=== PATIENT | female | born 1995 | race Caucasian/White ===

== ENCOUNTER 2020-10-15 14:56 | Outpatient (CLI) | payer OTHER, SELFPAY ==
[2020-10-15 19:26] LABS: Vitamin D 25 Hydroxy 19.1 ng/mL
[2020-10-15 19:58] LABS: Hepatitis C Virus Antibody Negative (Negative)
[2020-10-18 09:17] LABS: Rapid Plasma Reagin Non-Reactive (NonReactive)
[2020-10-21 02:29] LABS: Hematocrit 35.9 % (35.0-45.0); Hemoglobin 11.5 g/dL (11.7-15.5); MCH 30.8 pg (27.0-33.0); MCV 96.2 FL (80.0-100.0); RDW 14.9 % (11.0-15.0); Red Blood Cell Count 3.73 Mill/uL (3.80-5.10)
== END 2020-10-15 14:57 | disposition home or self-care (01) ==
PROVIDERS: PCP Physician Assistant; Visit Provider Student in an Organized Health Care Education/Training Program
DX: Z34.90 Encounter for supervision of normal pregnancy, unspecified, unspecified trimester (principal); Z3A.00 Weeks of gestation of pregnancy not specified
CPT/HCPCS: 36415; 82306; 83021; 86592; 86787; 86803

== ENCOUNTER 2020-12-30 08:35 | Outpatient (CLI) | payer OTHER, SELFPAY ==
[2020-12-30 10:04] LABS: Basophils Percent Auto 0.3 % (0.2-1.2); Eosinophils Absolute Auto 0.1 K/mm3 (0-0.3); Eosinophils Percent Auto 1.4 % (0-4.4); Hematocrit 35.3 % (37.0-47.0); Hemoglobin 11.9 g/dL (12.0-15.0); Immature Granulocyte Absolute 0.09 K/mm3 (0.00-0.031); Immature Granulocyte Percent A 0.9 % (0-0.5); Lymphocytes Absolute Auto 1.77 K/mm3 (0.9-3.2); Lymphocytes Percent Auto 17.8 % (18.3-44.2); Mean Corpuscular HGB Conc 33.7 g/dl (32-36); Mean Corpuscular Hemoglobin 29.1 pg (26-34); Mean Corpuscular Volume 86.3 fl (80-100); Mean Platelet Volume 9.4 fl (7.4-10.4); Monocytes Absolute Auto 0.4 K/mm3 (0.1-0.6); Monocytes Percent Auto 4.2 % (2.6-8.5); Neutrophils Absolute Auto 7.5 K/mm3 (1.3-6.7); Neutrophils Percent Auto 75.4 % (45.5-73.1); Platelet Count Result 308 k/mm3 (150-375); Red Blood Count 4.09 M/mm3 (4.2-5.4); Red Cell Distribution Width 12.5 % (11.5-14.5)
[2020-12-30 10:16] LABS: Glucose 1 Hour PP 50gm Dose 135 mg/dL
== END 2020-12-30 08:36 | disposition home or self-care (01) ==
PROVIDERS: PCP Physician Assistant; Visit Provider Student in an Organized Health Care Education/Training Program
DX: Z34.90 Encounter for supervision of normal pregnancy, unspecified, unspecified trimester (principal); Z3A.00 Weeks of gestation of pregnancy not specified
CPT/HCPCS: 36415; 82947; 85025

== ENCOUNTER 2021-02-17 10:28 | Outpatient (CLI) | payer OTHER, SELFPAY ==
--- NOTE | 2021-02-17 10:42 | ECG_ITS ---
Measurements Intervals [place] Rate: 55 P: 63 CT: 148 QRS: 18 QRSD: 82 T: 31 QT: 403 QTc: 388 Interpretive Statements SINUS BRADYCARDIA WITH SINUS ARRHYTHMIA BORDERLINE ECG Electronically Signed On 02-17-2021 13:15:49 CDT by Dylan Bryant D.O.
== END 2021-02-17 10:29 | disposition home or self-care (01) ==
PROVIDERS: PCP Physician Assistant; Visit Provider Student in an Organized Health Care Education/Training Program
DX: R00.2 Palpitations (principal); R94.31 Abnormal electrocardiogram [ECG] [EKG]
CPT/HCPCS: 93005

== ENCOUNTER 2021-02-28 07:35 | Inpatient (IN) | payer OTHER, SELFPAY ==
[2021-02-28] VITALS (188 sets, daily range): BP systolic 115–193; BP diastolic 68–148; PULSE 49–174; RESP 14–16; TEMP 36.5–37.4; O2SAT 94–100; BMI 39.8
[2021-02-28 07:09] LABS: Basophils Percent Auto 0.5 % (0.2-1.2); Eosinophils Absolute Auto 0.2 K/mm3 (0-0.3); Eosinophils Percent Auto 2.7 % (0-4.4); Hematocrit 35.8 % (37.0-47.0); Hemoglobin 12.9 g/dL (12.0-15.0); Immature Granulocyte Absolute 0.07 K/mm3 (0.00-0.031); Immature Granulocyte Percent A 0.8 % (0-0.5); Lymphocytes Absolute Auto 2.52 K/mm3 (0.9-3.2); Lymphocytes Percent Auto 29.1 % (18.3-44.2); Mean Corpuscular Hemoglobin 30.1 pg (26-34); Mean Corpuscular Volume 83.4 fl (80-100); Mean Platelet Volume 11.4 fl (7.4-10.4); Monocytes Absolute Auto 0.6 K/mm3 (0.1-0.6); Monocytes Percent Auto 6.5 % (2.6-8.5); Neutrophils Absolute Auto 5.2 K/mm3 (1.3-6.7); Neutrophils Percent Auto 60.4 % (45.5-73.1); Platelet Count Result 181 k/mm3 (150-375); Red Blood Count 4.29 M/mm3 (4.2-5.4); Red Cell Distribution Width 12.9 % (11.5-14.5); White Blood Count 8.7 K/mm3 (4.5-10.0)
[2021-02-28 07:17] LABS: Add Urine Microscopic? YES; Appearance Urine Cloudy (Clear); Bacteria Urine Trace /hpf; Bilirubin Urine Negative (Negative); Blood Urine Negative (Negative); Color Urine Yellow (Yellow); Glucose Urine UA Negative (Negative); Ketones Urine Negative (Negative); Leukocyte Esterase Ur Negative LEU/UL (NEGATIVE); Mucus Urine Rare /lpf; Nitrate Urine Negative (Negative); Protein Urine 3+ mg/dL (Negative); RBC Urine 0-2 /hpf (0-2); Specific Grav Ur 1.016 (1.001-1.035); Squamous Epithelial Cell Urine Few /hpf (Few); Urobilinogen Urine Negative mg/dL (<2.0)
[2021-02-28 07:34] LABS: Amphetamine Screen Urine Negative (Negative); Barbiturate Screen Urine Negative (Negative); Benzodiazepines Screen Urine Negative (Negative); Cannabinoid Screen Urine Positive (Negative); Cocaine Screen Urine Negative (Negative); Methadone Screen Urine Negative (Negative); Opiate Screen Urine Negative (Negative); Phencyclidine Screen Urine Negative (Negative)
[2021-02-28 07:34] LABS: Alanine Aminotransferase 21 U/L (4-35); Albumin Level 2.8 g/dL (3.5-5.1); Alkaline Phosphatase 197 U/L (38-126); Anion Gap 6 mmol/L (8-16); Aspartate Amino Transferase 35 U/L (14-36); Bilirubin,Total 0.2 mg/dL (0.2-1.3); Blood Urea Nitrogen 10 mg/dL (7-17); Calcium 8.4 mg/dL (8.4-10.2); Carbon Dioxide 22 mmol/L (22-30); Chloride 107 mmol/L (98-107); Estimated Glomerular Filt Rate > 60; Glucose 81 mg/dL (65-110); Potassium 3.8 mmol/L (3.4-5.0); Sodium 135 mmol/L (137-145); Uric Acid 7.4 mg/dL (2.5-7.5)
[2021-02-28] MEDS: LABETALOL HCL INJ 100 MG/20 ML VIAL 20 MG IV PUSH (08:18)
[2021-02-28 08:26] LABS: Total Protein Urine Random > 600 mg/dL
[2021-02-28] MEDS: LACTATED RINGERS 1,000 ML 125 ML IV CONT (08:31)
[2021-02-28] MEDS: AMPICILLIN 2 GM/NS 100 ML 2 GM/100 ML BAG IVPB (08:32)
[2021-02-28] MEDS: OXYTOCIN 30 UNITS/NS 500 ML 30 UNITS/500 ML BAG 6 UNITS IV CONT (08:32)
[2021-02-28] MEDS: LABETALOL HCL INJ 100 MG/20 ML VIAL 40 MG IV PUSH (08:40)
--- NOTE | 2021-02-28 08:54 | LDADM ---
This patient, Ifeoma Grubbs, was admitted to Labor/Delivery/Recovery 107 on 02/28/21 at 07:35. Plans for labor, pain management and were discussed with patient. Patient/family oriented to hospital policies and general routines including ID bracelet, bed and alarms, visiting hours, pain management, procedures, bathroom and other care routines, personal items, smoking policy, room service/diet and guest tray routines, security routines, and visiting hours. Patient/Family are encouraged to report perceived risks to care and to ask questions if they do not understand what they are told or what they should do. See OBIX for further documentation.
[2021-02-28] MEDS: LABETALOL HCL INJ 100 MG/20 ML VIAL 80 MG IV PUSH (09:19)
[2021-02-28] MEDS: NIFEdipine 30 MG TAB.ER.24 60 MG PO (09:24)
[2021-02-28] MEDS: MAGNESIUM SULF 4 GM/WATER100ML 4 GM/100 ML BAG IVPB (09:33)
[2021-02-28] MEDS: MAGNESIUM SULF 20GM/WATER500ML 500 ML 50 MG IV CONT ×2 (10:06→23:18)
[2021-02-28 10:18] LABS: Collection Time Urine 24 HOURS; Total Volume 24 Hour Urine 800 ml
[2021-02-28 10:19] LABS: Patient Weight 232 Lbs
[2021-02-28 10:35] LABS: Creatinine Clearance Urine 101.6 ml/min (75-125); Creatinine Urine 197.6 mg/dL
--- NOTE | 2021-02-28 11:18 | PM.IMHP ---
H&P: HPI History of Present Illness Date/Time: 02/28/21 11:18 Patient is a 25 yo LMP 06/01/20 currently 38w gestation with HAWA 03/14/21. Patient is dated by an ultrasound at 7 weeks gestation. Patient presented to L&D with complaints of RUQ tenderness. States she woke up around 1:00 a.m with RUQ tenderness that did not resolve and presented for evaluation. For past several weeks, patient has noticed worsening LE edema and has had protein on U dip in office. BP, however, was WNL. A 24 hr urine collection was ordered and patient reports completing it yesterday, but has not submitted it to the lab. Upon arrival to L&D, patient had severely elevated BP measurements and decision was made to proceed with IOL for preeclampsia with severe features. She denies any headache, chest pain, SOB, N/V, or visual disturbances. Reports occ ctx. Denies any vaginal bleeding or leakage of fluid. Reports good movement. Chief Complaint: Intrauterine at 38w gestation Preeclampsia with severe features GBS positive Review of Systems Review of Systems: All systems reviewed & are unremarkable except as noted in HPI and below Constitutional: Constitutional: Reports as per HPI, Reports no additional constitutional complaints, Denies chills, Denies fever(s), Denies headache(s) and Denies night sweats Eyes: Eyes: Reports as per HPI and Reports no additional eye complaints ENT: Reports system reviewed and no additional complaints, except as documented, Reports as per HPI, Reports Normal hearing present and Denies headache(s) Cardiovascular: Cardiovascular: Reports as per HPI, Reports no additional cardiovascular complaints, Denies chest pain and Denies dyspnea Respiratory: Respiratory: Reports as per HPI, Reports no additional respiratory complaints, Denies cough and Denies dyspnea Gastrointestinal: Gastrointestinal: Reports as per HPI, Reports no additional gastrointestinal complaints, Denies abdominal pain, Denies change in bowel habits, Denies change in stool character, Denies nausea and Denies vomiting Genitourinary: Genitourinary: Reports no additional female genitourinary complaints, Reports as per HPI, Denies abnormal vaginal bleeding, Denies genital lesions, Denies hot flashes, Denies dyspareunia, Denies pelvic pain, Denies sexual dysfunction, Denies urinary incontinence, Denies vaginal discharge, Denies vaginal dryness and Denies vaginal odor Musculoskeletal: Musculoskeletal: Reports no additional musculoskeletal complaints and Reports as per HPI Integumentary/Breasts: Skin/Breast: Reports system reviewed and no additional complaints, except as docu, Reports as per HPI, Denies breast pain and Denies nipple discharge Neurologic: Reports system reviewed and no additional complaints, except as documented, Reports as per HPI, Reports Normal hearing present and Denies headache(s) Psychiatric: Psychiatric: Reports no additional psychiatric complaints, Reports as per HPI, Denies anxiety and Denies depression Endocrine: Endocrine: Reports no additional endocrine complaints and Reports as per HPI Hematologic/Lymphatic: Hematologic/Lymphatic: Reports no additional hematologic/lymphatic complaints and Reports as per HPI Allergic/Immunologic: Allergic/Immunologic: Reports no additional allergic/immunologic complaints and Reports as per HPI PMFSH Past Medical History Medical History Breast cyst Surgical History Surgical History History of removal of skin mole Family History Family History Father Hypertension Mother Hypertension Depression Heart disease Grandparent Diabetes mellitus Heart disease Social History Social History Smoking status: Never smoker Alcohol intake: former Substance use: current Substance use type: marijuana
[2021-02-28 11:28] LABS: Total Protein Urine 24 Hr > 4800 mg/24hr (28-141); Total Protein Urine Random > 600 mg/dL
--- NOTE | 2021-02-28 11:33 | WPDHPUPDATE1 ---
History and Physical Update Update Date/Time: 02/28/21 11:33 History and Physical has been reviewed, including an updated exam of the patient. There are NO changes in the patient's condition. Risks, benefits, and alternatives have been discussed and questions answered. Patient agrees to proceed with procedure.
[2021-02-28] MEDS: AMPICILLIN 1 GM/NS 50 ML 1 GM/50 ML BAG IVPB (12:39)
--- NOTE | 2021-02-28 14:54 | PM.OBPNLAB ---
Pain Control Date/time seen: 02/28/21 14:54 Called by RN who stated that patient experienced SROM and that during her exam, she thought fetus was in breech presentation. Went to bedside. Limited bedside sono performed confirming breech presentation. Situation discussed with patient. Recommendation made to proceed with section for breech presentation. Risks and benefits discussed. Patient implied an understanding and agrees with plan. Pitocin discontinued. Anesthesia notified.
--- NOTE | 2021-02-28 15:31 | WPDANESEFPP ---
Anes - Eval Final PreProcedure Day of Procedure 02/28/21 15:31 Patient weight: obese Heart: regular rate and rhythm Lungs: clear to auscultation and normal air movement Airway: Mallampati scale class II Neurological: alert and oriented Last oral intake: >/= 8 hours ASA classification: III Emergent: no Anesthetic plan: proceed Anesthesia type and monitoring: regional epidural and standard monitoring Other findings: to C/S for breech presentation Results Review: All pre-operative results and documents have been reviewed as part of the pre-operative evaluation. Informed Consent: The patient's anesthetic plan and its attendant risks and benefits were discussed with the patient/family/POA. Questions were solicited and answers provided to the satisfaction of the patient/family/POA.
[2021-02-28] MEDS: KETOROLAC 30 MG/ML VIAL (*BKC) IM (15:40)
--- NOTE | 2021-02-28 16:19 | PM.OBPRVD ---
OB - Delivery Note Procedure Delivery date: 02/28/21 Procedure: Procedures Operation Date: 02/28/21 15:00 <No data on this case meets the specified criteria> events: Pre-Eclampsia, Labor Induction and Meconium Stained Fluid Intrapartal events: Severe Preeclampsia Induction method: per pitocin protocol Delivery monitor: external FHT and external uterine Route of delivery: Specimen: Yes (placenta and cord, cord blood, and cord gases) Quantitative Blood Loss (ml): 220 Anesthesia type: Epidural Disposition: PACU Complications: No immediate complications, however, small approx. 0.3 cm superficial laceration on infant's left ear identified by nursing staff Baby Date of : 02/28/21 Time of : 15:38 Weeks of gestation at delivery: 38 gender: Male Weight (pounds): 6 Weight (ounces): 7 presentation: breech Placenta delivery description: Manual Removal cord vessel description: 3 Vessels, Nuchal Cord (x1) and Clamped/Cut score one minute: 8 score five minutes: 9
--- NOTE | 2021-02-28 16:28 | W.PM.PROC2 ---
Procedure Note - Detailed Date of Procedure 02/28/21 Pre-op Diagnosis Intrauterine at 38 weeks gestation Preeclampsia with severe features Breech presentation identified in labor GBS positive Post-op Diagnosis same Procedure Performed Primary low transverse section via Pfannenstiel Surgeon Chari Montalvo MD Cementer Helper Rosenda Watt Anesthesia epidural Indications Breech presentation Findings Liveborn male in nichol breech presentation, apgars 8/9, weighing 6 lbs. 7 oz.; meconium stained amniotic fluid; normal appearing uterus, ovaries, and fallopian tubes bilaterally Description of Procedure The patient was taken to the operating room, where she was transferred to the operating room table. The patient was placed in dorsal supine position with a leftward tilt. She was prepped and draped in the usual sterile fashion. Epidural anesthesia was tested and found to be adequate. A Pfannenstiel skin incision was made with a scalpel and carried through to underlying layer of fascia with the Bovie. The fascia was incised in the midline and the incision was extended laterally with the use of forceps and Ruiz scissors. The inferior aspect of the fascial incision was grasped with Gilbetro clamps, elevated, and the underlying rectus muscle were dissected off with Ruiz scissors. Attention was then turned to the superior aspect of the fascial incision, which in a similar manner, was grasped with Gilberto clamps, elevated, and the underlying rectus muscles were also dissected off with Ruiz scissors. The rectus muscles were grasped with Jessenia clamps and the peritoneal cavity was entered sharply. This incision was extended superiorly and inferiorly with good visualization of the bladder and care was taken to avoid blood vessels. An Morgan retractor was placed inside of abdominal cavity and rolled to facilitate visualization and space. A bladder blade was inserted. The vesicouterine peritoneum was identified and incised sharply with Metzenbaum scissors. This incision was extended laterally with Metzenbaum scissors and a bladder flap was created digitally. The bladder blade was replaced. A low-transverse uterine incision was made with a scalpel. This incision was extended laterally with bandage scissors. Meconium-stained amniotic fluid was noted. The infant's buttocks were grasped and guided to the level of the uterine incision. The 's buttocks were delivered easily without difficulty with gentle fundal pressure. The infant was visualized passing meconium. Infant was found in nichol breech presentation. The infant was rotated to the right and the right lower extremity was flexed and delivered. The infant was then rotated to the left and the left lower extremity was also flexed and delivered. The infant was wrapped with a sterile blue towel and grasped at the level of the iliac crests and guided through incision to level of scapulae. The infant was rotated to the right and the right arm was flexed and delivered. Similarly, the was rotated to the left and the left arm was also flexed and delivered. A loose nuchal cord was noted. The infant's head was flexed and an effort was made to deliver head through incision, however, was unable to be delivered easily. Decision made to extend incision on left side. A scalpel was used to extend skin incision and transect left rectus muscle approximately 0.5cm to facilitate easier delivery of head. During this process, patient coughed rather forcefully and a small hole was seen through Morgan retractor. The 's head was grasped again, flexed, and delivered through incision atraumatically and without difficulty. Nuchal cord was reduced. The infant was crying spontaneously. Nose and mouth were suctioned with bulb suction. The cord was clamped and cut and the was handed off to awaiting nursing staff. A segment of cord was collected for cord gases. Cord blood was also collected. The placenta was then delivered manual
[2021-02-28] MEDS: miSOPROStol 200 MCG TABLET 800 MCG (18:00)
[2021-02-28] MEDS: ONDANSETRON INJ 4 MG/2 ML VIAL IV PUSH (20:16)
[2021-02-28] MEDS: PROMETHAZINE HCL 25 MG/ML AMPUL IM (23:19)
[2021-03-01] VITALS (9 sets, daily range): BP systolic 127–159; BP diastolic 86–113; PULSE 64–86; RESP 16–18; TEMP 36.4–36.9; O2SAT 97–99
[2021-03-01] MEDS: PROMETHAZINE HCL 25 MG/ML AMPUL IM ×2 (05:00→17:50)
[2021-03-01] MEDS: ACETAMINOPHEN 325 MG TABLET 650 MG PO (05:00)
[2021-03-01] MEDS: KETOROLAC 30 MG/ML VIAL (*BKC) IV PUSH (05:30)
[2021-03-01 05:48] LABS: Basophils Percent Auto 0.2 % (0.2-1.2); Eosinophils Percent Auto 0.1 % (0-4.4); Hematocrit 38.4 % (37.0-47.0); Hemoglobin 13.5 g/dL (12.0-15.0); Immature Granulocyte Absolute 0.08 K/mm3 (0.00-0.031); Immature Granulocyte Percent A 0.7 % (0-0.5); Immature Platelet Fraction Pct 10.2 % (0.9-11.2); Lymphocytes Absolute Auto 1.53 K/mm3 (0.9-3.2); Lymphocytes Percent Auto 13.8 % (18.3-44.2); Mean Corpuscular HGB Conc 35.2 g/dl (32-36); Mean Corpuscular Hemoglobin 30.4 pg (26-34); Mean Corpuscular Volume 86.5 fl (80-100); Mean Platelet Volume 11.1 fl (7.4-10.4); Monocytes Absolute Auto 0.6 K/mm3 (0.1-0.6); Monocytes Percent Auto 5.1 % (2.6-8.5); Neutrophils Absolute Auto 8.9 K/mm3 (1.3-6.7); Neutrophils Percent Auto 80.1 % (45.5-73.1); Platelet Count Result 95 k/mm3 (150-375); Red Blood Count 4.44 M/mm3 (4.2-5.4); Red Cell Distribution Width 12.9 % (11.5-14.5); White Blood Count 11.1 K/mm3 (4.5-10.0)
--- NOTE | 2021-03-01 07:23 | WPDANLDPN2 ---
Anes-Prog Note L&D Date/Time: 03/01/21 07:23 Comfortable throughout: labor and section Neuraxial method: epidural Epidural/Spinal procedure site: clean & non-tender Neuro status: Neuro function grossly intact. Cardiovascular status: normal Respiratory status: normal Airway patency: baseline Mental status: baseline Post-Op hydration status: normal Vital Signs: Last Vital Signs Temp 36.9 C 03/01/21 05:05 Pulse 70 03/01/21 05:05 Resp 16 03/01/21 05:05 BP 159/113 H 03/01/21 05:05 Pulse Ox 100 02/28/21 18:38 Pain score (VAS): 05/16 I/O: Intake & Output 02/28/21 02/28/21 03/01/21 15:59 23:59 07:59 Intake Total 250 1800 1000 Output Total 2840 900 Balance 250 -1040 100 Post-procedural complaints: none Patient feedback: Patient satisfied with anesthetic care.
--- NOTE | 2021-03-01 07:24 | WPDANLDNPN2 ---
Anes-Prog Note L&D-Neuraxial Date/Time: 03/01/21 07:24 Neuraxial medications: epidural PF morphine Opiod-related complaints: none Patient feedback: Patient satisfied with post-operative pain management.
[2021-03-01 07:38] LABS: Alanine Aminotransferase 185 U/L (4-35); Albumin Level 2.6 g/dL (3.5-5.1); Alkaline Phosphatase 182 U/L (38-126); Anion Gap 4 mmol/L (8-16); Aspartate Amino Transferase 495 U/L (14-36); Bilirubin,Total 1.7 mg/dL (0.2-1.3); Blood Urea Nitrogen 8 mg/dL (7-17); Calcium 7.2 mg/dL (8.4-10.2); Carbon Dioxide 26 mmol/L (22-30); Chloride 99 mmol/L (98-107); Estimated CRCL calculation 111 ml/min; Estimated Glomerular Filt Rate > 60; Glucose 96 mg/dL (65-110); Potassium 4.1 mmol/L (3.4-5.0); Sodium 129 mmol/L (137-145)
[2021-03-01] MEDS: NIFEdipine 30 MG TAB.ER.24 60 MG PO (07:41)
--- NOTE | 2021-03-01 08:10 | PC.NURSE ---
Mother called out for assist with feeding, reporting has eagerly fed and is now sleepy and unable to wake. is able to freely thrust tongue past gum ridge and flange both lips. Skin is intact on both nipples, no redness and bruising noted. Reviewed feeding cues, frequencies, duration of feedings, feeding elimination flow sheet, and signs of adequate intake. Demonstrated stimulation techniques to wake infant for feeding. Assisted with infant to breast. Reviewed positioning/alignment in cross cradle, holding breast in ?U? hold and guided asymmetrical latch on. Reviewed rational for each. Infant able to latch correctly within a few attempts. Infant nursed eagerly with steady draws and occasional swallowing noted, some pausing noted. Reviewed signs of a correct latch, effective nursing and suck swallow ratio. Suggested mother stimulate while feeding to increase stimulate, increase intake and to assist with maintaining deep latch. would slip to shallow latch causing tenderness. Demonstrated how to adjust latch more deeply while feeding if needed. Mother reports she can feel the difference in latch with no/less tenderness. Nipple care reviewed of lanolin after feedings, warm compresses as needed. Instructed mother to call out for RN assistance if she is unable to latch infant for feeding or she has discomfort with nursing. Instructed feeding should be initiated three hours from start of last feeding or if feeding cues are noted before. Mother voiced understanding of information shared.
[2021-03-01 08:43] LABS: Magnesium 6.2 mg/dL (1.6-2.3); Uric Acid 7.1 mg/dL (2.5-7.5)
--- NOTE | 2021-03-01 09:03 | PM.OBPNVD ---
OB - PN: Subj Subjective Date/time seen: 03/01/21 09:04 In general, patient doing well. Reported mild upper abdominal pain overnight, however, resolved with pain medication. Patient denies any lower abdominal pain or pain near incision. Also denies any headache, chest pain, shortness of breath. Reported nausea overnight as well as an episode of emesis. Reports feeling better this morning after medication. Limited PO intake. Cuenca catheter in place. No flatus yet. Scant lochia. No ambulation. OB - PN: Obj Data Labs CBC & Chem 7: 03/01/21 05:33 03/01/21 07:01 Labs: Laboratory Results - last 24 hr 02/28/21 02/28/21 03/01/21 08:09 09:51 05:33 WBC 11.1 H RBC 4.44 Hgb 13.5 Hct 38.4 MCV 86.5 MCH 30.4 MCHC 35.2 RDW 12.9 Plt Count 95 L MPV 11.1 H Immature Gran % (Auto) 0.7 H Neut % (Auto) 80.1 H Lymph % (Auto) 13.8 L [place] % (Auto) 5.1 Eos % (Auto) 0.1 Baso % (Auto) 0.2 Lymph # (Auto) 1.53 [place] # (Auto) 0.6 Eos # (Auto) 0.0 Baso # (Auto) 0.0 Abs Immat Gran (auto) 0.08 H Absolute Neuts (auto) 8.9 H Absolute Nucleated RBC 0.0 Nucleated RBC % 0.0 % Immature Plt Fraction 10.2 Sodium Potassium Chloride Carbon Dioxide Anion Gap BUN Creatinine Estim Creat Clear Calc Estimated GFR Glucose Uric Acid Calcium Magnesium Total Bilirubin AST ALT Alkaline Phosphatase Total Protein Albumin U Random Total Protein > 600 Ur 24 Hour Volume 800 Urine Creatinine 197.6 Creatinine Clearance 101.6 Ur Total Protein 24 Hr > 4800 H Blood Type O Positive Antibody Screen Negative 03/01/21 03/01/21 06:57 07:01 WBC RBC Hgb Hct MCV MCH MCHC RDW Plt Count MPV Immature Gran % (Auto) Neut % (Auto) Lymph % (Auto) [place] % (Auto) Eos % (Auto) Baso % (Auto) Lymph # (Auto) [place] # (Auto) Eos # (Auto) Baso # (Auto) Abs Immat Gran (auto) Absolute Neuts (auto) Absolute Nucleated RBC Nucleated RBC % % Immature Plt Fraction Sodium 129 L Potassium 4.1 Chloride 99 Carbon Dioxide 26 Anion Gap 4 L BUN 8 Creatinine 0.80 Estim Creat Clear Calc 111 Estimated GFR > 60 Glucose 96 Uric Acid 7.1 Calcium 7.2 L Magnesium 6.2 H Total Bilirubin 1.7 H AST 495 H ALT 185 H Alkaline Phosphatase 182 H Total Protein 5.0 L Albumin 2.6 L U Random Total Protein Ur 24 Hour Volume Urine Creatinine Creatinine Clearance Ur Total Protein 24 Hr Blood Type Antibody Screen OB - PN A/P Assessment and Plan (1) Delivery by section for breech presentation: Code(s): O32.1XX0 - Maternal care for breech presentation, not applicable or unspecified Status: Acute Assessment and Plan: POD#1 doing well pain medication PRN encourage ambulation and use of IS venodynes while in bed (2) Preeclampsia: Code(s): O14.90 - Unspecified pre-eclampsia, unspecified trimester Status: Acute Assessment and Plan: pt with preeclampsia with severe features continue magnesium sulfate x 24 hrs BP management as needed currently on Procardia XL 60mg QD LFT elevations today and decreased platelets will continue to monitor vitals and symptoms strict I/Os Time Spent With Patient Time: Total time spent is greater than 50% in coordination of care (as documented) at patient's floor/unit and/or counseling patient: Exam Const: General: cooperative, healthy appearing, comfortable and no acute distress Nutritional Appearance: obese Resp: Effort & Inspection: normal respiratory effort Auscultation: clear to auscultation bilaterally Cardio: Rate: regular rate Rhythm: regular rhythm GI: Inspection: non-distended GI Palp: Yes Soft to palpation and No Tenderness to palpation present (GI) Other: fundus firm below umbilicus inc co
[2021-03-01] MEDS: MAGNESIUM SULF 20GM/WATER500ML 500 ML 50 MG IV CONT (09:18)
[2021-03-01] MEDS: DOCUSATE SODIUM 100 MG CAPSULE PO ×2 (09:20→17:41)
[2021-03-01] MEDS: MULTIVIT/MIN/PREN/FOL AC/IRON TABLET 1 TAB PO (09:21)
[2021-03-01 10:52] LABS: Rapid Plasma Reagin Non-Reactive (NonReactive)
[2021-03-01] MEDS: LACTATED RINGERS 1,000 ML 75 ML IV CONT (11:25)
--- NOTE | 2021-03-01 11:30 | PC.NURSE ---
RN requested assist for to breast. sleepy and not nursing effectively. Demonstrated stimulation techniques to wake for feeding. Assisted with infant to breast. Reviewed positioning/alignment in cross cradle, holding breast in ?U? hold and guided asymmetrical latch on. Reviewed rational for each. Infant able to latch correctly within a few attempts. nursed sleepily with eagerly bursts and occasional swallowing noted, long pausing noted. stimulated to wake. responded with increased nursing into a steady rhythmic pattern. Reviewed signs of a correct latch, effective nursing and suck swallow ratio. Suggested mother stimulate while feeding to increase stimulate, increase intake and to assist with maintaining deep latch. Infant would slip to shallow latch causing tenderness. was able to maintain latch. Nipple care reviewed of lanolin after feedings, warm compresses as needed. Instructed mother to call out for RN assistance if she is unable to latch infant for feeding or she has discomfort with nursing. Instructed feeding should be initiated three hours from start of last feeding or if feeding cues are noted before. Mother voiced understanding of information shared.
[2021-03-01] MEDS: IBUPROFEN 600 MG TABLET PO ×2 (12:37→20:28)
[2021-03-01] MEDS: HYDROcodone/acetaminophen (*CRX) 5-325 MG TABLET 1 TAB PO ×4 (12:38→23:18)
[2021-03-01] MEDS: SIMETHICONE 80 MG TAB.CHEW PO ×2 (12:39→17:41)
--- NOTE | 2021-03-01 19:05 | PC.NURSE ---
183 Magnesium sulfate discontinued at 1730. IV mainline remains infusing. Pt has denied headache, blurry vision or visual disturbances, denies any epigastric pain, DTR's equal and +2 and easily elicited at this time. no clonus noted. Occasionally complains of slight nausea, medicated appropriately, no bouts of emesis today.
[2021-03-02] VITALS (7 sets, daily range): BP systolic 125–148; BP diastolic 84–98; PULSE 65–81; RESP 16–18; TEMP 36.4–36.9; O2SAT 98–99
[2021-03-02] MEDS: HYDROcodone/acetaminophen (*CRX) 5-325 MG TABLET 1 TAB PO ×5 (04:15→22:50)
[2021-03-02] MEDS: IBUPROFEN 600 MG TABLET PO ×4 (04:15→22:53)
[2021-03-02 06:10] LABS: Basophils Percent Auto 0.3 % (0.2-1.2); Eosinophils Absolute Auto 0.3 K/mm3 (0-0.3); Hematocrit 33.8 % (37.0-47.0); Immature Granulocyte Absolute 0.09 K/mm3 (0.00-0.031); Immature Granulocyte Percent A 0.8 % (0-0.5); Immature Platelet Fraction Pct 11.2 % (0.9-11.2); Lymphocytes Absolute Auto 1.95 K/mm3 (0.9-3.2); Mean Corpuscular HGB Conc 35.5 g/dl (32-36); Mean Corpuscular Hemoglobin 30.5 pg (26-34); Mean Platelet Volume 11.5 fl (7.4-10.4); Monocytes Absolute Auto 0.5 K/mm3 (0.1-0.6); Monocytes Percent Auto 4.2 % (2.6-8.5); Neutrophils Percent Auto 73.7 % (45.5-73.1); Platelet Count Result 60 k/mm3 (150-375); Red Blood Count 3.93 M/mm3 (4.2-5.4); Red Cell Distribution Width 13.3 % (11.5-14.5); White Blood Count 10.9 K/mm3 (4.5-10.0)
[2021-03-02 06:17] LABS: Alanine Aminotransferase 110 U/L (4-35); Albumin Level 2.5 g/dL (3.5-5.1); Alkaline Phosphatase 162 U/L (38-126); Anion Gap 2 mmol/L (8-16); Aspartate Amino Transferase 153 U/L (14-36); Bilirubin,Total 1.2 mg/dL (0.2-1.3); Blood Urea Nitrogen 9 mg/dL (7-17); Carbon Dioxide 29 mmol/L (22-30); Chloride 101 mmol/L (98-107); Estimated CRCL calculation 125 ml/min; Estimated Glomerular Filt Rate > 60; Glucose 72 mg/dL (65-110); Lactate Dehydrogenase 1806 U/L (313-618); Potassium 3.8 mmol/L (3.4-5.0); Sodium 132 mmol/L (137-145); Uric Acid 5.9 mg/dL (2.5-7.5)
[2021-03-02] MEDS: SIMETHICONE 80 MG TAB.CHEW PO ×3 (09:17→17:27)
[2021-03-02] MEDS: MULTIVIT/MIN/PREN/FOL AC/IRON TABLET 1 TAB PO (09:17)
[2021-03-02] MEDS: DOCUSATE SODIUM 100 MG CAPSULE PO ×2 (09:18→17:27)
[2021-03-02] MEDS: NIFEdipine 30 MG TAB.ER.24 60 MG PO (09:19)
--- NOTE | 2021-03-02 09:22 | PM.OBPNVD ---
OB - PN: Subj Subjective Date/time seen: 03/02/21 09:22 Patient doing well. Denies significant pain. Pain well controlled medication. Patient denies any headache, chest pain, shortness of breath, nausea, or vomiting. Tolerating p.o. diet. Ambulating without difficulty. Voiding well. Passing flatus. Scant lochia. OB - PN: Obj Data Labs CBC & Chem 7: 03/02/21 05:51 03/02/21 05:51 Labs: Laboratory Results - last 24 hr 02/28/21 03/02/21 03/02/21 08:09 05:51 05:51 WBC 10.9 H RBC 3.93 L Hgb 12.0 Hct 33.8 L MCV 86.0 MCH 30.5 MCHC 35.5 RDW 13.3 Plt Count 60 L MPV 11.5 H Immature Gran % (Auto) 0.8 H Neut % (Auto) 73.7 H Lymph % (Auto) 18.0 L [place] % (Auto) 4.2 Eos % (Auto) 3.0 Baso % (Auto) 0.3 Lymph # (Auto) 1.95 [place] # (Auto) 0.5 Eos # (Auto) 0.3 Baso # (Auto) 0.0 Abs Immat Gran (auto) 0.09 H Absolute Neuts (auto) 8.0 H Absolute Nucleated RBC 0.0 Nucleated RBC % 0.0 % Immature Plt Fraction 11.2 Sodium 132 L Potassium 3.8 Chloride 101 Carbon Dioxide 29 Anion Gap 2 L BUN 9 Creatinine 0.70 Estim Creat Clear Calc 125 Estimated GFR > 60 Glucose 72 Uric Acid 5.9 Calcium 7.0 L Total Bilirubin 1.2 AST 153 H ALT 110 H Alkaline Phosphatase 162 H Lactate Dehydrogenase 1806 H Total Protein 5.0 L Albumin 2.5 L RPR Non-reactive OB - PN A/P Assessment and Plan (1) Delivery by section for breech presentation: Code(s): O32.1XX0 - Maternal care for breech presentation, not applicable or unspecified Status: Acute Assessment and Plan: POD#2 doing well continue routine postoperative care encourage ambulation and use of IS (2) Hemolysis, elevated liver enzymes, and low platelet (HELLP) syndrome: Code(s): O14.20 - HELLP syndrome (HELLP), unspecified trimester Status: Acute Assessment and Plan: in general, doing well VSS s/p magnesium sulfate x 24 hrs postoperatively continue Procardia XL 60mg QD LFTs trending down plt count 60 will repeat labs in AM Time Spent With Patient Time: Total time spent is greater than 50% in coordination of care (as documented) at patient's floor/unit and/or counseling patient: Exam Const: General: cooperative, healthy appearing, comfortable and no acute distress Resp: Effort & Inspection: normal respiratory effort Auscultation: clear to auscultation bilaterally Cardio: Rate: regular rate Rhythm: regular rhythm GI: Inspection: non-distended and obesity GI Palp: Yes Soft to palpation and No Tenderness to palpation present (GI) Other: inc c/d/i Extrem: Right lower extremity: edema Details: 2+ Left lower extremity: edema Details: 2+ Other: no calf tenderness
--- NOTE | 2021-03-02 12:35 | PC.NURSE ---
Consult with pt., mother states she has bottle fed last few feedings due to ICP suggestion to supplement due to weight loss. Suggested mother put to breast first then supplement for stimulation of milk supply. Mother would like to initiate pumping with her Spectra pump. Instructions given on breast pump care and usage, pumping schedule, nipple care, and collection and storage of breast milk. Encouraged [id number], breast massage and manual expression to stimulate supply. Assessed patient for correct flange size, placement and draw. Patient verbalizes and demonstrates understanding of instructions. Discussed colostrum vs milk supply and mother may not see more than a few drops the first few days, milk should transition in by day 3 and she may see more volume pumped per session.
[2021-03-03] VITALS: BP 134/93
[2021-03-03] MEDS: HYDROcodone/acetaminophen (*CRX) 5-325 MG TABLET 1 TAB PO ×2 (04:58→09:08)
[2021-03-03] MEDS: IBUPROFEN 600 MG TABLET PO (04:59)
[2021-03-03 05:12] VITALS: BP 138/92
[2021-03-03 05:24] LABS: Basophils Absolute Auto 0.1 K/mm3 (0.0-0.1); Basophils Percent Auto 0.4 % (0.2-1.2); Eosinophils Absolute Auto 0.4 K/mm3 (0-0.3); Eosinophils Percent Auto 3.1 % (0-4.4); Hematocrit 35.7 % (37.0-47.0); Hemoglobin 12.5 g/dL (12.0-15.0); Immature Granulocyte Absolute 0.14 K/mm3 (0.00-0.031); Immature Granulocyte Percent A 1.1 % (0-0.5); Lymphocytes Absolute Auto 3.38 K/mm3 (0.9-3.2); Lymphocytes Percent Auto 26.4 % (18.3-44.2); Mean Corpuscular Hemoglobin 29.6 pg (26-34); Mean Corpuscular Volume 84.4 fl (80-100); Mean Platelet Volume 12.2 fl (7.4-10.4); Monocytes Absolute Auto 0.6 K/mm3 (0.1-0.6); Monocytes Percent Auto 4.4 % (2.6-8.5); Neutrophils Absolute Auto 8.3 K/mm3 (1.3-6.7); Neutrophils Percent Auto 64.6 % (45.5-73.1); Platelet Count Result 81 k/mm3 (150-375); Red Blood Count 4.23 M/mm3 (4.2-5.4); Red Cell Distribution Width 13.2 % (11.5-14.5); White Blood Count 12.8 K/mm3 (4.5-10.0)
[2021-03-03 05:45] LABS: Alanine Aminotransferase 72 U/L (4-35); Albumin Level 2.8 g/dL (3.5-5.1); Alkaline Phosphatase 157 U/L (38-126); Anion Gap 4 mmol/L (8-16); Aspartate Amino Transferase 67 U/L (14-36); Bilirubin,Total 0.8 mg/dL (0.2-1.3); Blood Urea Nitrogen 6 mg/dL (7-17); Calcium 8.6 mg/dL (8.4-10.2); Carbon Dioxide 30 mmol/L (22-30); Chloride 101 mmol/L (98-107); Estimated CRCL calculation 144 ml/min; Estimated Glomerular Filt Rate > 60; Glucose 70 mg/dL (65-110); Lactate Dehydrogenase 1001 U/L (313-618); Potassium 3.8 mmol/L (3.4-5.0); Sodium 135 mmol/L (137-145); Uric Acid 4.9 mg/dL (2.5-7.5)
--- NOTE | 2021-03-03 08:50 | PC.NURSE ---
Mother called out for assist with feeding, reporting she continues to bottle feed for most feedings and plan to put to breast next feeding. Assisted with to breast. Reviewed positioning/alignment in cross cradle, holding breast in ?U? hold and guided asymmetrical latch on. Reviewed rational for each. able to latch correctly within a few attempts. Infant nursed eagerly with steady draws and occasional/frequent swallowing noted, some pausing noted. Reviewed signs of a correct latch, effective nursing and suck swallow ratio. Suggested mother stimulate while feeding to increase stimulate, increase intake and to assist with maintaining deep latch. . Infant would slip to shallow latch causing tenderness. Demonstrated how to adjust latch more deeply while feeding if needed. Mother reports she can feel the difference in latch with no tenderness. Nipple care reviewed of lanolin after feedings, warm compresses as needed. Mother is planning discharge later this day. Mother is able to independently latch with appropriate positioning/alignment. She denies any nipple discomfort, is feeding as required and waking infant to feed if needed. has had few effective feedings followed with supplementation in the past 24 hours, and is currently meeting outcomes for output, jaundice and feeding frequencies. Infant continues to require supplementation for weight loss. Mother continues to pump without difficulties or discomfort after all feedings due to weight loss/supplementation. Mother states she feels confident to continue current feeding plan at home. Mother has her own double electric pump for home use. Discussed increasing supplementation as requires to satisfactions, advised to supplement 30 mls EBM/formula at this time. Reviewed paced feeding and suggested to stop when infant is satisfied, as long as is having required output. With increased supplementation infant may not want to feed for 4 hours. Mother will continue to pump on infant feeding schedule and will increase session to 20 minutes if pumping every 4 hours. Reviewed once mother?s milk is established and infant is effectively feeding, may have increased intake with nursing. If infant is effective feeding with long draws and frequent swallowing noted, may be ready to decrease/discontinue supplementation. Advised not to discontinue supplement until ICP, Follow-Up RN or LC has a pre/post weighted evaluation of infant feeding. Discussed nipple shield weaning techniques Reviewed transition to breast milk, signs of adequate intake, and engorgement/relief. Instructed to call ICP if intake/output less than required. Reviewed regular medications mother is taking. Information provided per Katie. Reviewed community resources on the [facility] website and in the Mom/Baby guide. Information on outpatient services provided. Mother has no further questions at this time.
[2021-03-03 09:00] VITALS: BP 127/94; PULSE 78; RESP 18; TEMP 37.1
[2021-03-03] MEDS: DOCUSATE SODIUM 100 MG CAPSULE PO (09:08)
[2021-03-03] MEDS: MULTIVIT/MIN/PREN/FOL AC/IRON TABLET 1 TAB PO (09:08)
[2021-03-03] MEDS: NIFEdipine 30 MG TAB.ER.24 60 MG PO (09:09)
--- NOTE | 2021-03-03 10:04 | PCCCNOTE ---
Care Coordination Consult: Met with pt. today who reports this is her first child. FOB name is Michael. Pt. lives at home with Michael. Reports family support if needed. Pt. reports she has all necessary supplies for baby at home including a crib, car seat, clothing, diapers, and bottles. resources provided. Pt. reports she recreationally used marijuana during to help with nausea. Pt. denies that she will continue to use marijuana at discharge. Denies a reliance on marijuana and denies any other substance abuse. Plans to discharge today. Denies any further needs.
--- NOTE | 2021-03-03 11:02 | P.PNOB_ITS ---
OB - PN: Subj Subjective Date/time seen: 03/03/21 11:02 Patient doing well. Denies significant pain. Pain well controlled medication. Patient denies any headache, chest pain, shortness of breath, nausea, or vomiting. Tolerating p.o. diet. Ambulating without difficulty. Voiding well. Passing flatus. Scant lochia. OB - PN: Obj Data Labs CBC & Chem 7: 03/03/21 05:05 03/03/21 05:05 Labs: Laboratory Results - last 24 hr 03/03/21 03/03/21 05:05 05:05 WBC 12.8 H RBC 4.23 Hgb 12.5 Hct 35.7 L MCV 84.4 MCH 29.6 MCHC 35.0 RDW 13.2 Plt Count 81 L MPV 12.2 H Immature Gran % (Auto) 1.1 H Neut % (Auto) 64.6 Lymph % (Auto) 26.4 [place] % (Auto) 4.4 Eos % (Auto) 3.1 Baso % (Auto) 0.4 Lymph # (Auto) 3.38 H [place] # (Auto) 0.6 Eos # (Auto) 0.4 H Baso # (Auto) 0.1 Abs Immat Gran (auto) 0.14 H Absolute Neuts (auto) 8.3 H Absolute Nucleated RBC 0.0 Nucleated RBC % 0.0 Sodium 135 L Potassium 3.8 Chloride 101 Carbon Dioxide 30 Anion Gap 4 L BUN 6 L Creatinine 0.60 L Estim Creat Clear Calc 144 Estimated GFR > 60 Glucose 70 Uric Acid 4.9 Calcium 8.6 Total Bilirubin 0.8 AST 67 H ALT 72 H Alkaline Phosphatase 157 H Lactate Dehydrogenase 1001 H Total Protein 6.0 L Albumin 2.8 L OB - PN A/P Assessment and Plan (1) Delivery by section for breech presentation: Code(s): O32.1XX0 - Maternal care for breech presentation, not applicable or unspecified Status: Acute Assessment and Plan: POD#3 doing well continue routine postoperative care encourage ambulation and use of IS plan is to dc home today in stable condition emergency precautions reviewed (2) Hemolysis, elevated liver enzymes, and low platelet (HELLP) syndrome: Code(s): O14.20 - HELLP syndrome (HELLP), unspecified trimester Status: Acute Assessment and Plan: doing well asymptomatic labs improving, LFTs trending down, plt count trending up BP reasonably controlled with Procardia XL 60mg QD will continue Procardia upon discharge will repeat labs when patient returns for follow up visit Time Spent With Patient Time: Total time spent is greater than 50% in coordination of care (as documented) at patient's floor/unit and/or counseling patient: Exam Const: General: cooperative, healthy appearing, comfortable and no acute distress Nutritional Appearance: obese Resp: Auscultation: clear to auscultation bilaterally Cardio: Rate: regular rate Rhythm: regular rhythm GI: Inspection: non-distended and obesity GI Palp: Yes Soft to palpation and No Tenderness to palpation present (GI) Other: fundus firm below umbi licus inc c/d/i Extrem: Right lower extremity: edema Details: 1+ Left lower extremity: edema Details: 1+ Other: no calf tenderness
--- NOTE | 2021-03-03 11:12 | PM.OBDSVD ---
DS: Admitting Diagnosis Discharge Date 03/03/21 Admitting Diagnosis Preeclampsia with severe features OB - DS: Summary OB Procedures : PIH Mgmt OB Procedures Intrapartum: OB Procedures: : None Peripartum Data Procedures: Procedures Operation Date: 02/28/21 15:00 Actual Procedure Side Surgeon p Section Chari Montalvo MD Time Spent with Patient Time attestation: Total time spent providing and/or coordinating discharge services: DS: Data Data Completed and Pending Pending studies at discharge: Pending at discharge 02/28/21 15:39 Surgical [PTH] Routine Labs on day of discharge: Labs from last 24 hours 03/03/21 03/03/21 05:05 05:05 WBC 12.8 H RBC 4.23 Hgb 12.5 Hct 35.7 L MCV 84.4 MCH 29.6 MCHC 35.0 RDW 13.2 Plt Count 81 L MPV 12.2 H Immature Gran % (Auto) 1.1 H Neut % (Auto) 64.6 Lymph % (Auto) 26.4 [place] % (Auto) 4.4 Eos % (Auto) 3.1 Baso % (Auto) 0.4 Lymph # (Auto) 3.[address] [place] # (Auto) 0.6 Eos # (Auto) 0.4 H Baso # (Auto) 0.1 Abs Immat Gran (auto) 0.14 H Absolute Neuts (auto) 8.3 H Absolute Nucleated RBC 0.0 Nucleated RBC % 0.0 Sodium 135 L Potassium 3.8 Chloride 101 Carbon Dioxide 30 Anion Gap 4 L BUN 6 L Creatinine 0.60 L Estim Creat Clear Calc 144 Estimated GFR > 60 Glucose 70 Uric Acid 4.9 Calcium 8.6 Total Bilirubin 0.8 AST 67 H ALT 72 H Alkaline Phosphatase 157 H Lactate Dehydrogenase 1001 H Total Protein 6.0 L Albumin 2.8 L Discharge Plan Discharge Attending physician on discharge: Chari Montalvo Discharging Clinician: Chari Montalvo Anticipated Discharge Date/Time: 03/03/21 11:13 Patient Disposition: Home, Self-Care Activity: as tolerated and pelvic rest Diet: regular Discharge Instructions: Call office ([phone]) to schedule the following appointments: 1. Postoperative/wound check in 1 week. 2. visit in 4-6 weeks. You may take Ibuprofen 600mg every 6 hours as needed for pain. I have sent a prescription for a stronger pain medication, Mcclusky, to your pharmacy. You may take this as prescribed for breakthrough pain (pain that is not controlled with Ibuprofen). No driving for at least two weeks. You also may not drive while taking narcotics. Pain medication may make you constipated. It may be helpful to take an dzwo-wcy-flhrowi stool softener, such as Colace and/or Senokot, along with the pain medication to help lessen constipation. Your blood pressure was high during your hospitalization and you were started on blood pressure medication. I have sent this medication, Procardia XL, to your pharmacy for you to take as directed. Please take your blood pressure at home daily, record in a log, and bring log to your follow up visit. If the top number (SBP) is >160 or the bottom number (DBP) is >110, you need to call the office or go to the emergency department. Call office or go to ED for pain not controlled with medication, headache, visual changes, chest pain, shortness of breath, fever, chills, persistent nausea or vomiting, severe abdominal pain, heavy vaginal bleeding >2 pads/hour, foul vaginal discharge or odor, any redness near incision, severe pain, pus or drainage from incision site, or problems with your breasts. Patient Instructions: Antibiotic Form Stand Alone Forms: General Discharge Information Follow-up/Referrals: Chari Montalvo MD [Physician] - Discharge Medications: New hydrocodone-acetaminophen 5-325 mg Tablet 1 - 2 tablet PO Q4-6H PRN (Reason: pain) Qty: 30 RF: 0 nifedipine 60 mg tablet extended release 24hr 60 mg PO DAILY Qty: 30 RF: 0 Continued One Daily 28 mg iron- 800 mcg combo pack 1 pkg PO DAILY RF: 0 omeprazole 40 mg capsule,delayed release(DR/EC) 40 mg PO DAILY RF: 0 ondansetron HCl 4 mg tablet See Rx Instructions .ROUTE .COMPLEX Qty: 3
[2021-03-05 11:52] VITALS: BP 126/82; PULSE 106; RESP 20; TEMP 37; O2SAT 100
== END 2021-03-03 13:19 | disposition home or self-care (01) | DRG 788 ==
LOC: ANHOBOP 07:37 → ANHLDR 07:37 → ANHOB2 19:55
PROVIDERS: Obstetrics & Gynecology; Admitting Provider Student in an Organized Health Care Education/Training Program; PCP Physician Assistant; Visit Provider Student in an Organized Health Care Education/Training Program
PROC: 10D00Z1 Extraction of Products of Conception, Low, Open Approach (ICD-10-PCS; CPT 59514; principal; 2021-02-28 15:00)
DX: O14.14 Severe pre-eclampsia complicating childbirth (principal); Z37.0 Single live birth; Z3A.38 38 weeks gestation of pregnancy; O32.1XX0 Maternal care for breech presentation, not applicable or unspecified; O99.824 Streptococcus B carrier state complicating childbirth; O77.0 Labor and delivery complicated by meconium in amniotic fluid; O14.25 HELLP syndrome, complicating the puerperium
CPT/HCPCS: 36415; 80053; 80307; 81001; 81050; 82570; 82575; 83615; 83735; 84156; 84550; 85025; 85055; 86592; 86850; 86900; 86901; 87086; 88307; A9270; J0290; J1885; J2274; J2405; J2550; J2590; J2795; J3475; J7120

== ENCOUNTER 2021-03-05 11:13 | Outpatient (CLI) | payer BC, OTHER, SELFPAY ==
[2021-03-05 11:46] LABS: Hematocrit 35.5 % (37.0-47.0); Hemoglobin 12.4 g/dL (12.0-15.0); Mean Corpuscular HGB Conc 34.9 g/dl (32-36); Mean Corpuscular Hemoglobin 30.1 pg (26-34); Mean Corpuscular Volume 86.2 fl (80-100); Mean Platelet Volume 10.9 fl (7.4-10.4); Platelet Count Result 213 k/mm3 (150-375); Red Blood Count 4.12 M/mm3 (4.2-5.4); Red Cell Distribution Width 13.3 % (11.5-14.5); White Blood Count 10.8 K/mm3 (4.5-10.0)
[2021-03-05 12:02] LABS: Alanine Aminotransferase 42 U/L (4-35); Albumin Level 3.5 g/dL (3.5-5.1); Alkaline Phosphatase 148 U/L (38-126); Anion Gap 6 mmol/L (8-16); Aspartate Amino Transferase 37 U/L (14-36); Bilirubin,Total 0.6 mg/dL (0.2-1.3); Blood Urea Nitrogen 12 mg/dL (7-17); Calcium 9.2 mg/dL (8.4-10.2); Carbon Dioxide 26 mmol/L (22-30); Chloride 104 mmol/L (98-107); Estimated Glomerular Filt Rate > 60; Glucose 93 mg/dL (65-110); Potassium 4.3 mmol/L (3.4-5.0); Sodium 136 mmol/L (137-145)
== END 2021-03-05 11:14 | disposition home or self-care (01) ==
LOC: ANHOBOP 11:19
PROVIDERS: PCP Physician Assistant; Visit Provider Student in an Organized Health Care Education/Training Program
DX: O14.90 Unspecified pre-eclampsia, unspecified trimester (principal); Z3A.00 Weeks of gestation of pregnancy not specified
CPT/HCPCS: 36415; 80053; 85027

== ENCOUNTER 2022-06-19 08:07 | Emergency (ER) | payer BC, SELFPAY ==
[2022-06-19 08:33] VITALS: BP 110/73; PULSE 81; RESP 18; TEMP 36.6; O2SAT 99
--- NOTE | 2022-06-19 08:47 | ED.EAR ---
HPI - Ear Problem General Chief complaint: Ear Stated complaint: rt ear pain Time Seen by Provider: 06/19/22 08:24 Source: patient Mode of arrival: ambulatory Limitations: no limitations History of Present Illness HPI Narrative: 26-year-old female presents to [facility] with complaints of pain to her right ear since this morning. Patient reports that she has had intermittent bilateral jaw pain as she needs to get her wisdom teeth removed. Patient has not tried taking any icng-uaj-wykzcmr medications for her symptoms. Patient denies sore throat, cough, congestion, runny nose, nausea, vomiting, diarrhea, shortness of breath, wheezing or ear drainage. MD Complaint: ear pain Location: right ear Duration: constant Severity: mild Relieving factors: nothing Exacerbating factors: nothing Discharge from ear: Reports no Treatment prior to arrival: none Related Data Home Medications Medication Instructions Recorded Confirmed omeprazole 40 mg capsule,delayed 40 mg PO DAILY 12/17/20 06/19/22 release etonogestrel 68 mg subdermal 1 implant subdermal ONCE 06/21/21 06/19/22 implant (Nexplanon) fluoxetine 20 mg capsule 20 mg DIRECTED 06/19/22 06/19/22 Allergies Allergy/AdvReac Type Severity Reaction Status Date / Time No Known Allergies Allergy Verified 06/21/21 12:23 Review of Systems Constitutional: Constitutional: Denies fatigue, Denies fever(s) and Denies weakness ENT: Denies vertigo, Denies dizziness, Denies epistaxis, Denies nasal congestion and Denies sore throat Comments: Right ear pain Cardiovascular: Cardiovascular: Denies chest pain Respiratory: Respiratory: Denies cough, Denies dyspnea and Denies wheezing Gastrointestinal: Gastrointestinal: Denies diarrhea, Denies nausea and Denies vomiting Integumentary/Breasts: Skin/Breast: Denies rash Neurologic: Denies vertigo and Denies dizziness PMFSH Past Medical History Medical History Breast cyst Delivery by section for breech presentation Encounter for surveillance of implantable subdermal contraceptive GBS (group B streptococcus) infection Heart palpitations Preeclampsia Surgical History Surgical History History of removal of skin mole Family History Family History Father Hypertension Mother Hypertension Depression Heart disease Grandparent Diabetes mellitus Heart disease Social History Social History Smoking status: Never smoker Alcohol intake: former Substance use: current Substance use type: marijuana Last use: 2 days ago Occupation/Education: student Gender identity (if verbalized by the patient): Female Spiritual care concerns: No Agree to blood products: Yes Comments At time of signature, I agree with nursing past medical, surgical, social and family history. There is no relevant family history pertinent to the presenting complaint. Exam Const: General: healthy appearing and no acute distress Nutritional Appearance: well nourished Orientation/consciousness: patient oriented x3 Limitations: no limitations HENMT: Head: normal to inspection Ears: external ears normal, EAC's normal and TM abnormal dull on the right, wth effusion serous on the right and erythematous on the right Face/Nose/Sinus: Normal external nose present Face and sinus: normal facial exam Mouth: Yes Normal oral and palatal mucosa present Teeth and gingiva: dentition normal Throat: posterior oropharynx normal and uvula midline Eyes: Conjunctivae: conjunctivae normal Neck: Neck: normal visual inspection Resp: Effort & Inspection: normal respiratory effort and not labored Auscultation: clear to auscultation bilaterally, no crackles, no rales, no rhonchi and no wheezes Cardio: Rate: regular rate Rhythm:
== END 2022-06-19 08:55 | disposition home or self-care (01) ==
PROVIDERS: Emergency Provider Nurse Practitioner Family; PCP Physician Assistant
DX: H66.91 Otitis media, unspecified, right ear (principal); F12.90 Cannabis use, unspecified, uncomplicated
CPT/HCPCS: 99213; G0463

== ENCOUNTER 2023-06-12 12:53 | Outpatient (CLI) | payer BC, SELFPAY | END 2023-06-12 12:54 | disposition home or self-care (01) | LOC: ANHLAB 12:55 | PROVIDERS: PCP Physician Assistant; Visit Provider Obstetrics & Gynecology | DX: O20.0 Threatened abortion (principal); Z3A.00 Weeks of gestation of pregnancy not specified | CPT/HCPCS: 36415; 84702 ==

== ENCOUNTER 2023-06-14 11:49 | Outpatient (CLI) | payer BC, SELFPAY | END 2023-06-14 11:50 | disposition home or self-care (01) | LOC: ANHLAB 11:52 | PROVIDERS: PCP Physician Assistant; Visit Provider Obstetrics & Gynecology | DX: O20.0 Threatened abortion (principal) | CPT/HCPCS: 36415; 84702 ==

== ENCOUNTER 2023-06-16 08:30 | Outpatient (CLI) | payer BC, SELFPAY | END 2023-06-16 08:31 | disposition home or self-care (01) | LOC: ANHLAB 08:33 | PROVIDERS: PCP Physician Assistant; Visit Provider Obstetrics & Gynecology | DX: O20.0 Threatened abortion (principal); Z3A.00 Weeks of gestation of pregnancy not specified | CPT/HCPCS: 36415; 84702 ==

== ENCOUNTER 2023-07-06 08:07 | Outpatient (RCR) | payer BC, SELFPAY ==
[2023-06-22 07:59] LABS: Beta HCG Quantitative 86.71 mIU/ML
[2023-06-29 08:33] LABS: Beta HCG Quantitative 6.05 mIU/ML
[2023-07-06 09:14] LABS: Beta HCG Quantitative < 2.39 mIU/ML
== END 2023-09-20 23:59 | disposition home or self-care (01) ==
LOC: ANHLAB 08:07
PROVIDERS: PCP Physician Assistant; Visit Provider Obstetrics & Gynecology
DX: O03.9 Complete or unspecified spontaneous abortion without complication (principal)
CPT/HCPCS: 36415; 84702

== ENCOUNTER 2023-07-06 08:08 | Outpatient (CLI) | payer BC, SELFPAY ==
[2023-07-06 10:34] LABS: Alanine Aminotransferase 16 U/L (6-35); Albumin Level 4.3 g/dL (3.5-5.1); Alkaline Phosphatase 57 U/L (38-126); Anion Gap 5 mmol/L (8-16); Aspartate Amino Transferase 22 U/L (14-36); Bilirubin,Total 0.5 mg/dL (0.2-1.3); Blood Urea Nitrogen 15 mg/dL (7-17); Calcium 9.1 mg/dL (8.4-10.2); Carbon Dioxide 32 mmol/L (22-30); Chloride 103 mmol/L (98-107); Cholesterol 157 mg/dL (0-200); Estimated Glomerular Filt Rate > 60; Glucose 100 mg/dL (65-110); HDL Direct 50 mg/dL; Potassium 4.1 mmol/L (3.4-5.0); Sodium 140 mmol/L (137-145); Triglycerides 121 mg/dL (<150)
[2023-07-06 10:45] LABS: LDL Cholesterol Direct 78 mg/dL
== END 2023-07-06 08:09 | disposition home or self-care (01) ==
LOC: ANHLAB 08:10
PROVIDERS: PCP Physician Assistant; Visit Provider Physician Assistant
DX: Z00.00 Encounter for general adult medical examination without abnormal findings (principal)
CPT/HCPCS: 36415; 80053; 80061

== ENCOUNTER 2024-06-15 12:12 | Emergency (ER) | payer BC, SELFPAY ==
--- OUTSIDE RECORDS SUMMARY | 2024-06-15 12:15 | XMS_ITS | Encounter Summary ---
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 Historical Provider Final Res ult documented in this encounter Visit Diagnoses Not on filedocumented in this encounter Additional Health Concerns Infection Onset Date Last Indicated Resolved Time COVID: Suspected 01/19/2020 01/19/2020 02/02/2020 3:06 AM CDT COVID: Suspected 05/25/2021 05/25/2021 05/25/2021 7:58 PM REACTOR OPERATOR documented as of this encounter Care Teams Card Seller Relationship Specialty Start Date End Date Ozzie Andrews PA PCP - General Family Medicine 10/28/18 documented as of this encounter
--- OUTSIDE RECORDS SUMMARY | 2024-06-15 12:15 | XMS_ITS | Data Portability ---
Author Organization JOSE Garcia SINataliia Portillo Address [address] [place] [address] Assessment No assessment recorded. Plan of Treatment Reminders Order Date Submit Date Provider Last Modified By Organization Details Last Modified Time Details Appointments ANY 30 2024 08:15A DAVE Walker Not available Not available Not available Lab None recorded. Referral None recorded. Procedures None recorded. Surgeries None recorded. Imaging None recorded. Medication Orders albuterol sulfate HFA 90 mcg/actua tion aerosol inhaler 2023 [id number], [address], [place], [place], [id number], 04/16/2024 08:51:06 fluoxetin e 20 mg capsule 2023 [id number], [address], [place], [place], [id number], 04/16/2024 08:51:07 Patient TargetsNo targets recorded. Patient Instructions Encounter Date Encounter Id Patient Instructions Last Modified By Organization Details Last Modified Time 04/16/2024 [id number] A healthy lifestyle: care instructions [email or web address] Not available 04/16/2024 08:42:18 Reason for Referral None Reported. Problems Name Problem SNOMED Code Status Onset Date Resolution Date Notes Provider Name and Address Organization Details Recorded Time Adult health examination Active 2023 Jabier Gervais [place] JOSE mitchell 15:41:43 Gastroesophage al reflux disease without esophagitis 705942943 Active 2023 [facility] [place] JOSE mitchell SIBandar 4 15:41:44 Allergic rhinitis 66807709 Active 2023 BENEDICTO Sinha [place] - [facility] 4 15:41:45 Problem Notes None recorded. Medical Equipment None Reported. Allergies No known drug allergies Medications Name Sig Start Date Stop Date Status Note LastModified by Organization Details LastModified Time Ecotrin Low Strength 81 mg tablet,enter ic coated Take 1 tablet every day by oral route. active Not Available Not Available No t Available ondansetron HCl 8 mg tablet Take 1 tablet twice a day by oral route as needed. active Not Available Not Available No t Available fexofenadine 180 mg tablet Take 1 tablet every day by oral route as needed. active Not Available Not Available No t Available omeprazole 40 mg capsule,afua yed release TAKE 1 CAPSULE(40 MG) BY MOUTH DAILY active Not Available Not Available Not Available albuterol sulfate HFA 90 mcg/actuatio n aerosol inhaler Inhale 2 puffs every 6 hours by inhalation route as needed. active Not Available Not Available No t Available fluoxetine 20 mg capsule Take 1 capsule every day by oral route. 2023 active Not Available Not Available Not Avai lable cyclobenzapr ine 5 mg tablet Take 1 tablet every day by oral route as needed. active Not Available Not Available No t Available + DHA 1 tablet by mouth daily active Not Available Not Available Not Available Vitals Date Recorded Body height Body mass index (BMI) Body weight Oxygen saturation Oxygen saturation in Arterial blood by Pulse oximetry Heart rate Systolic blood pressure Diastolic blood pressure Provider Name and Address Organization Details Last Updated DateTime 4 160.02 cm 37.4 kg/m2 19851.3 4 g 97 % 97 % 88 /min 110 mm[Hg] 70 mm[Hg] Jabier Deng [place] - [facility] 4 08:39:57 Social History Question Answer Notes LastModified by Organizat ion Details LastModified Time Tobacco Smoking Status Never Smoker BENEDICTO Sinha, JOSE - [facility] 04/16/2024 08:37:15 What Is Your Level Of Alcohol Consumption? Occasional Information not available 04/16/2024 What Is Your Level Of Caffeine Consumption? Moderate Information not available 04/16/2024 What Was The Date Of Your Most Recent Tobacco Screening? 04/16/2024 Information not available 04/16/2024 Do You Use Any Illicit Or Recreational Drugs? No Information not available 04/16/2024 Has Tobacco Cessation Counseling Been Provided? No Information not available 04/16/2024 Do You Or Have You Ever Used Any Other Forms Of Tobacco Or Nicotine? No Information not available 04/16/2024 Sex: Female Functional Status None recorded. Mental Status None recorded. Family History Nothing Reported. Medical History No medical history recorded. Gynecological HistoryNo gynecological history recorded. Obstetrics History GPAL:G 0 P 0 0 0 0 Immunizations Vaccine Type Date Status Note Provider Nam e and Address Organization Details Recorded Time Influenza, MDCK, quadrivalent, PF 9 completed [facility], [place] - [facility] 04/16/2024 08:32:45 Influenza, MDCK, quadrivalent, PF 2 completed [facility] [facility] 04/16/2024 08:32:45 Influenza, live, trivalent, intranasal 3 completed [facility] [facility] 04/16/2024 08:32:45 COVID-19, mRNA, LNP-S, PF, 100 mcg/0.5mL dose or 50 mcg/0.25mL dose 1 [facility], [place] - [facility] 04/16/2024 08:32:45 COVID-19, mRNA, LNP-S, PF, 100 mcg/0.5mL dose or 50 mcg/0.25mL dose 1 [facility], [place] [facility] 04/16/2024 08:32:45 COVID-19, mRNA, LNP-S, PF, 100 mcg/0.5mL dose or 50 mcg/0.25mL dose 1 [facility], [place] [facility] 04/16/2024 08:32:45 COVID-19, mRNA, LNP-S, bivalent, PF, 50 mcg/0.5 mL or 25mcg/0.25 mL dose 2 completed [facility], [place] [facility] 04/16/2024 08:32:45 COVID-19, mRNA, LNP-S, PF, jamar-sucrose, 30 mcg/0.3 mL 4 completed Jabier Deng [place], [place] [facility] 04/16/2024 08:32:45 COVID-19, mRNA, LNP-S, PF, jamar-sucrose, 30 mcg/0.3 mL 3 completed Jabier Deng [place] [facility] 04/16/2024 08:32:45 Tdap 1 completed Jabier Deng [place] [facility] 04/16/2024 08:32:45 OPV 6 completed Jabier Deng [place] [facility] 04/16/2024 08:32:45 OPV 6 completed Jabier Deng [place] [facility] 04/16/2024 08:32:45 DTP-Hib 6 completed Jabier Deng [place] [facility] 04/16/2024 08:32:45 DTP-Hib 6 completed Jabier Deng [place] [facility] 04/16/2024 08:32:45 Influenza, split virus, trivalent, PF 4 completed Jabier Deng [place] [facility] 04/16/2024 08:32:45 Hep B, adolescent or pediatric 6 completed Jabier Deng [place] [facility] 04/16/2024 08:32:45 Hep B, adolescent or pediatric 6 completed Jabier Deng [place] [facility] 04/16/2024 08:32:45 Hep B, adolescent or pediatric 6 completed Jabier Deng [place] [facility] 04/16/2024 08:32:45 meningococcal MCV4P 4 completed Jabier D[place] [facility] 04/16/2024 08:32:45 Influenza, split virus, quadrivalent, PF 8 completed Jabier D[place] [facility] 04/16/2024 08:32:45 Influenza, split virus, quadrivalent, PF 1 completed [place], [place], [place] 04/16/2024 08:32:45 Influenza, split virus, quadrivalent, PF 3 completed [place], [place] null, [place] [facility] 04/16/2024 08:32:45 Influenza, split virus, quadrivalent, PF 0 completed [place], [place], [place] [facility] 04/16/2024 08:32:45 Past Encounters Encounter ID Performer Location Encounter Start Date Encounter Closed Date Diagnosis/Indication Diagnosis SNOMED-CT Code Diagnosis ICD10 Code Diagnosis Note [id number] DAVE Joya [facility] [address] [facility] [address] [place] [address] 04/16/2024 08:27:55 04/22/2024 08:44:10 Adult health examination 183954233 Z00.00 Healthy diet and exercise, HCM as discussed Gastroesop hageal reflux disease without esophagitis 920142951 K21.9 1 .Avoid lying flat 3 to 4 hours after eating or drinking. 2. Don't eat for 3 hours prior to going to sleep 3. Elevate the head of bed 4-8 inches. 4. Avoid tight clothing around the waist. 5. Decrease dietary fat intake. 6. Avoid acidic foods (citrus and tomato-bas ed products), alcohol, caffeinate d beverages, chocolate, onions, garlic, salt, and peppermint oil. 7. Eat several smaller meals during the day instead of large meals. 8. Avoid drinking coffee, or carbonated beverages. 9. Weight loss can help with symptoms, try to diet and exercise. 10. Stop smoking. Allergic rhinitis 426520 04 J30.9 This is a stable chronic condition controlled with p.r.n. 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 No SI/HI. Take medication as prescribed - Take medication at the same time every day and do not miss doses - Medication will take 2-3 weeks to reach full effect - Do not suddenly stop medication without consulting your provider first - Take time for yourself every day, get plenty of rest - Exercise can help elevate moods - If you do not have a good support system, talk to your provider about counseling options - Sometimes antidepres son medication s can make suicidal thoughts worse. If you are experienci ng these thoughts you should report to the ER immediatel y - You can also call the suicide hotline at 1-241-091- 2264 Reactive a irway disease [id number] 06 J45.909 controlled with prn meds Health Concerns Section Related Observation LastModified by Organization Detai ls LastModified Time None Recorded Concern Status LastModified by Organization Details LastModified Time None Recorded Advance Directives Directive None Recorded Payers Encounter Date Sequence Insurance Name Policy Number Policy Ingram Covered Member ID Ingram Member ID Guarantor Name 04/16/2024 1 [place] [id number] Ifeoma Marc [id number] Ifeoma Marc Notes Date Note Type Note Provider Name and Address Organization Details Recorded Time 04/16/20 24 text/htm l New patient in to establish with PCM and f/u for the following medical conditions Annual physical -non-smoker:-exercise:no-colon oscopy: No FMHX-Shingles:-Pneumococcal:-F marianne shot: UTD-Covid shots: UTD-HPV: UTD - mammogram:-Pap:2020-Bone density: Generalized anxiety disorder (Primary): stopped zoloft, went back on prozac, feels great , OB authorizedGastroesophageal reflux disease without esophagitisAllergic rhinitis due to pollen, unspecified seasonalityAtypical nevi: monitored Patient is 26 weeks with baby boy and doing well, OB is allowing her to stay on prozac DAVE Joya Attn: Accounting,[address] [facility], [place], [address], [facility] - [facility] 04/16/2024 09:06:27 OBGyn Episode No OBEpisode recorded.
--- OUTSIDE RECORDS SUMMARY | 2024-06-15 12:15 | XMS_ITS | Encounter Summary ---
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 Historical Provider Final Res ult documented in this encounter Visit Diagnoses Not on filedocumented in this encounter Additional Health Concerns Infection Onset Date Last Indicated Resolved Time COVID: Suspected 01/19/2020 01/19/2020 02/02/2020 3:06 AM CDT COVID: Suspected 05/25/2021 05/25/2021 05/25/2021 7:58 PM BOILER SHOP MECHANIC documented as of this encounter Care Teams Heating Element Builder Relationship Specialty Start Date End Date Ozzie Andrews PA PCP - General Family Medicine 10/28/18 documented as of this encounter
--- OUTSIDE RECORDS SUMMARY | 2024-06-15 12:15 | XMS_ITS | Referral Summary ---
Author Organization [facility] Address [address] [place] [address] Care Team Providers Care Dynamometer Tester Engine Name Role Phone Ozzie Andrews Primary Care Provider [phone] Allergies No known active allergies Medications fexofenadine (JORJE) 180 mg tablet Take 1 tablet (180 mg total) by mouth daily Active omeprazole (PriLOSEC) 40 mg capsule TAKE 1 CAPSULE(40 MG) BY MOUTH DAILY 90 capsule 3 10/18/2022 Active FLUoxetine (PROzac) 20 mg capsule Take 1 capsule (20 mg total) by mouth daily 90 capsule 3 08/06/2023 Active cyclobenzaprine (FLEXERIL) 5 mg tablet Take 1-2 tablets (5-10 mg total) by mouth nightly 90 tablet 3 08/06/2023 Active ondansetron (ZOFRAN) 8 mg tablet Take 1 tablet (8 mg total) by mouth every 8 (eight) hours as needed for nausea or vomiting 45 tablet 3 08/06/2023 Active albuterol HFA (Proventil HFA) 90 mcg/actuation inhaler Inhale 2 puffs every 6 (six) hours as needed for wheezing 1 each 3 08/27/2023 Active Active Problems Problem Noted Date Diagnosed Date Gastroesophageal reflux disease without esophagi tis 08/02/2021 Assessment & Plan (08/06/2023 9:57 AM CDT): Avoid spicy, fried, greasy foods Keep hydrated with clear liquids Elevate HOB 2- 3 inches Avoid or cut down on caffeine, chocolates, and ETOH No late meals, or heavy meals after 7 pm Reg daily exercise No tight fitting clothing Stop smoking - if smoker Watch for worsening symptoms - ie diarrhea, vomiting, nausea, blood per rectum, vomiting up blood ,fever, arthralgias, rash etc. RTC prn or if new symptoms arise Pt or parent verbalizes understanding Assessment & Plan (07/04/2023 8:40 AM WEEDER): Images from the original note were not included. Avoid spicy, fried, greasy foods Keep hydrated with clear liquids Elevate HOB 2- 3 inches Avoid or cut down on caffeines, chocolates, and ETOH No late meals, or heavy meals after 7 pm Reg daily exercise No tight fitting clothing Stop smoking - if smoker Watch for worsening symptoms - ie diarrhea, vomiting, nausea, blood per rectum, vomiting up blood ,fever, arthralgias, rash etc. RTC prn or if new symptoms arise Pt or parent verbalizes understanding Assessment & Plan (11/23/2021 7:48 AM CDT): Images from the original note were not included. Avoid spicy, fried, greasy foods Keep hydrated with clear liquids Elevate HOB 2- 3 inches Avoid or cut down on caffeines, chocolates, and ETOH No late meals, or heavy meals after 7 pm Reg daily exercise No tight fitting clothing Stop smoking - if smoker Watch for worsening symptoms - ie diarrhea, vomiting, nausea, blood per rectum, vomiting up blood ,fever, arthralgias, rash etc. RTC prn or if new symptoms arise Pt or parent verbalizes understanding Assessment & Plan (08/02/2021 8:32 AM CDT): Images from the original note were not included. Avoid spicy, fried, greasy foods Keep hydrated with clear liquids Elevate HOB 2- 3 inches Avoid or cut down on caffeines, chocolates, and ETOH No late meals, or heavy meals after 7 pm Reg daily exercise No tight fitting clothing Stop smoking - if smoker Watch for worsening symptoms - ie diarrhea, vomiting, nausea, blood per rectum, vomiting up blood ,fever, arthralgias, rash etc. RTC prn or if new symptoms arise Pt or parent verbalizes understanding Encounter by telehealth for suspected COVID-19 0 05/25/2021 Assessment & Plan (05/25/2021 9:26 AM WEEDER): Self-isolate 10 days from start of symptoms Increase fluid intake Report new or worsening symptoms Warning signs warranting immediate medical care: chest pain, trouble breathing, worsening shortness of breath Ear pressure, right 04/02/2020 Assessment & Plan (08/02/2021 8:32 AM CDT): resolved Assessment & Plan (04/02/2020 12:28 PM WEEDER): Due to symptoms and sinus congestion which initally started patients symptoms will place order for COVID testing. In addition, I have sent a prescription for Augmentin to patient's pharmacy. If any worsening symptoms including but not limited to decreased hearing, SOB, chest pain recommend reevaluation. Atypical nevi 11/21/2018 Assessment & Plan (08/06/2023 9:57 AM CDT): Annual mole mapping Assessment & Plan (07/04/2023 8:41 AM WEEDER): Mole mapping performed skin care discussed Assessment & Plan (11/23/2021 7:48 AM CDT): Will call back to schedule shave BX right tricep due to irritation Assessment & Plan (06/21/2021 9:10 AM WEEDER): With scheduling mole mapping Routine general medical exam ination at a health care facility 10/23/2018 Assessment & Plan (07/04/2023 8:40 AM WEEDER): Healthcare maintenance updated Assessment & Plan (06/21/2021 9:10 AM WEEDER): Healthcare maintenance updated Body mass index (bmi) 38.0-38.9, adult 9 Lump of right breast 12/26/2017 Generalized anxiety disorder 01/05/2017 Assessment & Plan (08/06/2023 9:57 AM CDT): This is well controlled with no SI HI continue current meds follow-up six-month Assessment & Plan (07/04/2023 8:39 AM WEEDER): This is controlled current medications continue current meds follow-up routine there is no SI HI. Open door open Assessment & Plan (11/23/2021 7:52 AM CDT): Fair control, increasing prozac to 20, no SI/HI, f/u routine, MHC ordered Assessment & Plan (08/02/2021 8:32 AM CDT): Improved, CPM, refilled medications, f/u 6 months Assessment & Plan (06/21/2021 9:10 AM WEEDER): Images from the original note were not included. This is not controlled we discussed numerous options expect stay with the mild depression we agreed to give Prozac a try The pharmacologic and nonpharmacologic treatment of anxiety/depression were discusses with the patient. Included was a discussion of the current treatment regimens and their proposed mechanism of action concerning brain chemistry. Discussed the role of counseling as an adjunct to medications should we agree to pursue this. The patient is non-suicidal, and agrees to inform us of any change in this status follow up in 4-6 weeks- sooner if any problems Allergic rhinitis 08/28/2016 Assessment & Plan (08/06/2023 9:57 AM CDT): This is well controlled chronic condition continue current [id number] medication Assessment & Plan (08/02/2021 8:33 AM CDT): CPM Assessment & Plan (06/21/2021 9:09 AM WEEDER): This is well controlled with current medication Resolved Problems Problem Noted Date Diagnosed Date Resolved Date Upper respiratory infection, acute 08/28/2016 10/29/2019 Immunizations Name Administration Dates Next Due DTP / HiB 03/19/1996,01/16/1996 Hep B, Adolescent or Pediatric 01/16/1996,1995,1995 Influenza LAIV (Nasal) 02/25/2013 Influenza, Quadrivalent, Ambika l Culture-based MDCK, Preservative Free, Antibiotic Free, Intramuscular 02/22/2022,12/21/2018 Influenza, Quadrivalent, Spl it, Preservative Free, Intramuscular 01/24/2023,01/23/2021,02/09/2020,12/14 Influenza, Trivalent, Preser vative Free, Intramuscular 01/21/2024 Influenza, Unspecified 01/29/2023,01/23/2021 Meningococcal MCV4P (Menactra) 07/09/2013 OPV 03/19/1996,01/16/1996 PPD TEST 10/20/2019, 9,10/22/2017,11/15 [employer] App Sars-Cov-2 Bivalent V accination (12+ YRS) 01/03/2024 Tdap 01/23/2021,10/22/2017 Social History Tobacco Use Types Packs/Day Years Used Date Smoking Tobacco: Never Smokeless Tobacco: Never Tobacco Cessation:Counseling Given: Not Answered Alcohol Use Standard Drinks/Week Comments Yes 0 (1 standard drink = 0.6 oz pur e alcohol) AUDIT-C Answer Date Recorded Q1: How often do you have a drink containing alc ohol? Monthly or less 08/06/2023 Q2: How many drinks containi ng alcohol do you have on a typical day when you are drinking? 1 or 2 08/06/2023 Frequency of Binge Drinking Not on file 05/2023 PHQ-2 Answer Date Recorded PHQ-2 Total Score (If total score is 3 or more points, staff should administer the PHQ-9) 0 07/04/2023 Personal Safety Answer Date Recorded Getting School Help Needed Not on file 05/21 Comments Unknown Sex and Gender Information Value Date Recorded Sex Assigned at Not on file Legal Sex Female 7:09 PM WEEDER Gender Identity Female 04/02/2020 11:49 AM WEEDER Sexual Orientation Straight 04/02/2020 11 :49 AM WEEDER Last Filed Vital Signs Vital Sign Reading Time Taken Comments Blood Pressure 116/68 08/06/2023 9:28 AM CDT Pulse 100 08/06/2023 9:28 AM CDT Temperature 36.1 C (96.9 F) 08/06/2023 9:28 AM CDT Respiratory Rate 16 08/06/2023 9:28 AM CDT Oxygen Saturation 96% 08/06/2023 9:28 AM CDT Inhaled Oxygen Concentration - - Weight 90.3 kg (199 lb) 08/06/2023 9:28 AM CDT Height 162.6 cm (5' 4 ) 08/06/2023 9:28 AM CDT Body Mass Index 34.16 08/06/2023 9:28 AM CDT Plan of Treatment Not on file Insurance [employer] [place] [employer] [place] Care Teams Dynamometer Tester Engine Relationship Specialty Start Date End Date Ozzie Andrews PA PCP - General Family Medicine 10/28/18
--- OUTSIDE RECORDS SUMMARY | 2024-06-15 12:15 | XMS_ITS | Clinical Summary ---
Author Organization [facility] – [place], [place] [facility] Address [address] [place] [address] Care Team Providers Care Slot Tag Inserter Name Role Phone Ozzie Andrews Primary Care Provider [phone] Allergies No known active allergies Medications fexofenadine [...] understanding Assessment & Plan (07/04/2023 8:40 AM OVER SHORT AND DAMAGE CLERK): Images from the original note were not [...] 05/25/2021 Assessment & Plan (05/25/2021 9:26 AM OVER SHORT AND DAMAGE CLERK): Self-isolate 10 days from start of symptoms Increase fluid intake Report new or worsening symptoms Warning signs warranting immediate medical care: chest pain, trouble breathing, worsening shortness of breath Ear pressure, right 04/02/2020 Assessment & Plan (08/02/2021 8:32 AM CDT): resolved Assessment & Plan (04/02/2020 12:28 PM OVER SHORT AND DAMAGE CLERK): Due to symptoms and sinus congestion which [...] mapping Assessment & Plan (07/04/2023 8:41 AM OVER SHORT AND DAMAGE CLERK): Mole mapping performed skin care discussed Assessment & Plan (11/23/2021 7:48 AM CDT): Will call back to schedule shave BX right tricep due to irritation Assessment & Plan (06/21/2021 9:10 AM OVER SHORT AND DAMAGE CLERK): With scheduling mole mapping Routine general medical exam ination at a health care facility 10/23/2018 Assessment & Plan (07/04/2023 8:40 AM OVER SHORT AND DAMAGE CLERK): Healthcare maintenance updated Assessment & Plan (06/21/2021 9:10 AM OVER SHORT AND DAMAGE CLERK): Healthcare maintenance updated Body mass index (bmi) 38.0-38.9, adult 9 Lump of right breast 12/26/2017 Generalized anxiety disorder 01/05/2017 Assessment & Plan (08/06/2023 9:57 AM CDT): This is well controlled with no SI HI continue current meds follow-up six-month Assessment & Plan (07/04/2023 8:39 AM OVER SHORT AND DAMAGE CLERK): This is controlled current medications continue current meds follow-up routine there is no SI HI. Open door open Assessment & Plan (11/23/2021 7:52 AM CDT): Fair control, increasing prozac to 20, no SI/HI, f/u routine, MHC ordered Assessment & Plan (08/02/2021 8:32 AM CDT): Improved, CPM, refilled medications, f/u 6 months Assessment & Plan (06/21/2021 9:10 AM OVER SHORT AND DAMAGE CLERK): Images from the original note were not [...] is well controlled chronic condition continue current [id number] medication Assessment & Plan (08/02/2021 8:33 AM CDT): CPM Assessment & Plan (06/21/2021 9:09 AM OVER SHORT AND DAMAGE CLERK): This is well controlled with current medication [...] 07/09/2013 OPV 03/19/1996,01/16/1996 PPD TEST 10/20/2019, 9,10/22/2017,11/15 Next Jump Sars-Cov-2 Bivalent V accination (12+ YRS) 01/03/2024 Tdap 01/23/2021,10/22/2017 Surgical History Surgery Date Site/Laterality Comments SECTION 02/28/2021 Medical History Medical History Date Comments Anxiety Depression Miscarriage 2023 Family History Medical History Relation Name Comments Hypertension Father Bj Kidney disease Father Bj Obesity Father Bj Diabetes Maternal Grandfather Juancarlos Diabetes Maternal Grandmother Kamala Hypertension Maternal Grandmother Kamala bypass surgery Maternal Grandmother Kamala Early Mother Paola Heart attack Mother [place] Hypertension Mother Paola Mental illness Mother Paola Obesity Mother Paola COPD Paternal Grandfather Jose Antonio Diabetes Paternal Grandfather Jose Antonio Arthritis Paternal Grandmother Thyroid disease Paternal Grandmother Relation Name Status Comments Brother Alive Father Bj Alive Maternal Grandfather Juancarlos Alive Maternal Grandmother Kamala Alive Mother Paola Alive Paternal Grandfather Jose Antonio Alive Paternal Grandmother Social History Tobacco Use Types Packs/Day Years [...] on file Legal Sex Female 7:09 PM OVER SHORT AND DAMAGE CLERK Gender Identity Female 04/02/2020 11:49 AM OVER SHORT AND DAMAGE CLERK Sexual Orientation Straight 04/02/2020 11 :49 AM OVER SHORT AND DAMAGE CLERK Obstetrics History Last Filed Vital Signs Vital Sign Reading [...] 08/06/2023 9:28 AM CDT Plan of Treatment Health Maintenance Due Date Last Done Comments Cervical Cancer Screening 1995 Hepatitis C Screening 1995 Depression Screening 07/04/2024 07/04/2023, 11/23/2021, 11/23/2021, Additional history exists Regular Well Visit/Exam 18-64 07/04/2024 07/04/2023, 06/21/2021, 10/28/2018 DTaP/Tdap/Td Vaccine (5 - Td or Tdap) 01/23/2031 01/23/2021, 10/22/2017, 03/19/1996, Additional history exists Covid-19 Vaccine Completed 01/03/2024, , 01/24/2023, Additional history exists Influenza Vaccine Completed 01/21/2024, , 01/24/2023, Additional history exists HPV Vaccines Aged Out No longer eligi ble based on patient's age to complete this topic Pneumococcal vaccine <65 Aged Out No longer eligible based on patient's age to complete this topic Varicella Vaccines Discontinued Insurance [employer] [place] [employer] [place] Care Teams Slot Tag Inserter Relationship Specialty Start Date End Date Ozzie Andrews PA PCP - General Family Medicine 10/28/18
--- OUTSIDE RECORDS SUMMARY | 2024-06-15 12:15 | XMS_ITS | Encounter Summary ---
Author Organization [facility] Care Team Providers Care Senior It Specialist Name Role Phone Ozzie Andrews Primary Care Provider Encounter Details Date Type Department Care Team (Latest Contact Info) Description 09/02/2015 Orders Only [facility]INCON[facility] Provider, MD Oziel [address] [place] [id number] Social History Tobacco Use Types Packs/Day Years Used Date Smoking Tobacco: Never Assessed Comments Unknown Sex and Gender Information Value Date Recorded Sex Assigned at Not on file Legal Sex Female 7:09 PM PAPER CONE MACHINE TENDER Gender Identity Female 04/02/2020 11:49 AM PAPER CONE MACHINE TENDER Sexual Orientation Straight 04/02/2020 11 :49 AM PAPER CONE MACHINE TENDER documented as of this encounter Plan of Treatment Not on file documented as of this encounter Procedures Procedure Name Priority Date/Time Associated Diagnosis Comments SCAN - PATHOLOGY 09/02/2015 12:0 0 AM CDT documented in this encounter Results * SCAN - PATHOLOGY (09/02/2015 12:00 AM CDT) Narrative 09/02/2015 12:00 AM CDT Ordered by an unspecified provider. Historical Provider Final Res ult documented in this encounter Visit Diagnoses Not on filedocumented in this encounter Additional Health Concerns Infection Onset Date Last Indicated Resolved Time COVID: Suspected 01/19/2020 01/19/2020 02/02/2020 3:06 AM CDT COVID: Suspected 05/25/2021 05/25/2021 05/25/2021 7:58 PM PAPER CONE MACHINE TENDER documented as of this encounter Care Teams Senior It Specialist Relationship Specialty Start Date End Date Ozzie Andrews PA PCP - General Family Medicine 10/28/18 documented as of this encounter
--- OUTSIDE RECORDS SUMMARY | 2024-06-15 12:15 | XMS_ITS | Data Portability ---
Author Organization [facility], [facility] Address [address] [place] [address] Care Team Providers Care Sports Nutritionist Name Role Phone ERMELINDA SALDANA Primary Care Provider Assessment No assessment recorded. Plan of Treatment Reminders Order Date Submit Date Provider Last Modified By Organization Details Last Modified Time Details Appointments NST 2024 10:00A M NST SCHEDULE Not available Not available Not available U/S OB BPP 2024 10:30A M ULTRASOUND Not available Not available Not available OB ROUTINE 2024 11:00A M RAND HUITRON MD Not available Not available Not available U/S OB BPP 2024 08:30A M ULTRASOUND Not available Not available Not available NST 2024 09:00A M NST SCHEDULE Not available Not available Not available OB ROUTINE 2024 09:45A Anirudh HUITRON MD Not available Not available Not available SURG CSectio n 2024 07:30A Anirudh HUITRON MD Not available Not available Not available SURG POST OP 2024 09:15A Anirudh HUITRON MD Not available Not available Not available POST 2024 10:00A Anirudh HUITRON MD Not available Not available Not available Lab None recorde d. Referral None recorde d. Procedures None recorde d. Surgeries cesarea n section (SURG) 2023 025 [id number] [facility], [address] [address], [place], [address], 04/29/2024 09:10:37 Imaging US, obstetr ic, follow- up 2024 025 [email or web address] [place], [facility] [address], [address], [place], [address], 05/13/2024 13:24:13 Medication Orders None recorde d. Patient TargetsNo targets recorded. Patient InstructionsNo instructions recorded. Reason for Referral None Reported. Results Created Date Observation Date Name Description Value Unit Range Abnormal Flag Note LastModifiedBy Organization Detail LastModifiedTime 04/15/2004/15/2024 HEMAT OCRIT (HCT) HCT 34.7 % (based on docume nted legal sex) 34.0-[address] [facility] (Lab) [address] [facility], [place], [address], 04/16/2024 12:58:48 04/15/20 24 04/15/2024 HEMOG LOBIN (HGB) HGB 11.7 g/dL (based on docume nted legal sex) 11.6-[address] [facility] (Lab) [address], [place], [address], 04/16/2024 12:58:49 04/15/20 24 04/15/2024 GTT - GESTA ANDRZEJ L MUSAE N, ACOG OB glucose, 1 hour screen 145 mg/dL 70-135 high Not Available [facility] (Lab) [address], [place], [address], 04/16/2024 12:58:49 04/15/20 24 04/15/2024 HIV 1/2 ANTIG EN/AN TIBOD Y, REFLE X CONFI RMATI ON HIV antigen/anti body Nonrea ctive nonrea ctive HIV-1 antig en and HIV-1 /HIV- 2 antib odies were not detec danielle. No labor atory evide nce of HIV infec tion. Not Available [facility] (Lab) [address], [place], [address], 04/16/2024 12:58:50 04/15/20 04/15/2024 RPR SCREE N, REFLE X TITER /CONF IRMAT ION RPR screen Nonrea ctive nonrea ctive Not Available [facility] (Lab) [address] [facility], [place], [address], 04/16/2024 12:58:50 04/18/20 24 04/18/2024 GTT - GESTA ANDRZEJ L, 3 HOUR, ACOG glucose, fasting acog 72 mg/dL 70-94 Not Available [facility] (Lab) [address] [facility], [place], [address], 04/19/2024 06:34:27 04/18/20 24 04/18/2024 GTT - GESTA ANDRZEJ L, 3 HOUR, ACOG glucose, 1 hour acog 131 mg/dL 70-179 Not Available [facility] (Lab) [address] [place], [address], 04/19/2024 06:34:27 04/18/20 24 04/18/2024 GTT - GESTA ANDRZEJ L, 3 HOUR, ACOG glucose, 2 hour acog 104 mg/dL 70-154 Not Available [facility] (Lab) [address] [facility], [place], [address], 04/19/2024 06:34:27 04/18/20 24 04/18/2024 GTT - GESTA ANDRZEJ L, 3 HOUR, ACOG glucose, 3 hour acog 63 mg/dL 70-139 low Not Available [facility] (Lab) [address] [facility], [place], [address], 04/19/2024 06:34:27 05/13/19 25 05/13/2024 , regla ro w-up No observ ation record ed. [email or web address] [place] [address], [place], [address], 05/13/2024 13:16:53 05/13/19 25 05/13/2024 US, obste tric, follo w-up No observ ation record ed. [email or web address] [place] [address], [place], [address], 05/13/2024 13:09:38 Result Notes None recorded. Problems Name Problem SNOMED Code Status Onset Date Resolution Date Notes Provider Name and Address Organization Details Recorded Time 46304603 Active 2023 Kiah Vicente [facility] 4 16:19:15 Past history of section 658450813 Active [facility] RAND HUITRON MD [address], [place], [address], , P.C[facility] 4 11:14:36 Body mass index 30+ - obesity 175783293 Active antental testing at [facility]wks [facility] 4 14:37:29 Body mass index 30+ - obesity 483424972 Active antental testing at [facility] 4 14:37:28 Problem Notes None recorded. Procedures Surgical History Date Name Laterality Status Provider Name and Address Organization Details Recorded Time 3 Control Implant Removal completed TAQUERIA Figueroa [address], [place], [address], [place] [facility] 01/23/2023 16:06:08 1 Date of Last Pap Smear completed Kiah Vicente [facility] 01/19/2023 12:35:37 Caesarean Section completed Kiahtan Vicenet [facility] 01/19/2023 12:35:54 Imaging Results Imaging Date Name Status LastModified by Organiz ation Details LastModified Time 05/13/2024 US, obstetric, follow-up completed [email or web address] [place] [address], [place], [address], 05/13/2024 13:16:53 05/13/2024 US, obstetric, follow-up completed [email or web address] [address], [place], [address], 05/13/2024 13:09:38 Procedure Notes None recorded. Medical Equipment None Reported. Allergies No known drug allergies Medications Name Sig Start Date Stop Date Status Note LastModified by Organization Details LastModified Time prednisone 10 mg tablet 06/11 completed Not Available Not Available Not Available azithromyci n 250 mg tablet TAKE 2 TABLETS BY MOUTH FOR 1 DAY THEN TAKE 1 TABLET BY MOUTH DAILY FOR 4 DAYS 01/19 completed Not Available Not Available Not Available ondansetron HCl 8 mg tablet TAKE 1 TABLET BY MOUTH TWICE DAILY active Not Available Not Available No t Available omeprazole 40 mg capsule,del ayed release active Not Available Not Available Not Available tramadol 50 mg tablet TAKE 1 TABLET BY MOUTH EVERY 4-6 HOURS NEEDED 01/19 completed Not Available Not Available Not Available amoxicillin 875 mg tablet TAKE 1 TABLET BY MOUTH EVERY 12 HOURS FOR 10 DAYS 01/19 completed Not Available Not Available Not Available sertraline 25 mg tablet TAKE 1 TABLET BY MOUTH EVERY DAY 11/26 completed Not Available Not Available Not Available albuterol sulfate HFA 90 mcg/actuati on aerosol inhaler INHALE 2 PUFFS BY MOUTH EVERY 6 HOURS NEEDED FOR WHEEZING active Not Available Not Available No t Available fluoxetine 20 mg capsule active Not Available Not Available Not Available fluticasone propionate 50 mcg/actuati on nasal spray,suspe nsion SHAKE LIQUID AND USE 1 SPRAY IN EACH NOSTRIL DAILY 01/19 completed Not Available Not Available Not Available metoclopram janeen 10 mg tablet TAKE 1 TABLET BY MOUTH FOUR TIMES DAILY NEEDED active Not Available Not Available No t Available cyclobenzap rine 5 mg tablet 11/26 completed Not Available Not Available Not Available 12/04 completed Not Available Not Available Not Available Baby Aspirin active Not Available Not Available Not Available Yara Allergy active Not Available Not Available Not Available Classic active Not Available Not Available Not Available Acid Cigar Sorter (omeprazole ) active Not Available Not Available Not Available Vitals Date Recorded Body height Body mass index (BMI) Body weight Systolic blood pressure Diastolic blood pressure Provider Name and Address Organization Details Last Updated DateTime 04/28/2024 160.02 cm 36.5 kg/m2 46163.03 g 113 mm[Hg] 69 mm[Hg] [facility] 4 09:32:32 Date Recorded Body height Body mass index (BMI) Body weight Systolic blood pressure Diastolic blood pressure Provider Name and Address Organization Details Last Updated DateTime 05/13/2024 160.02 cm 37.7 kg/m2 03719.17 g 103 mm[Hg] 69 mm[Hg] [facility] 5 10:09:43 Date Recorded Body height Body mass index (BMI) Body weight Systolic blood pressure Diastolic blood pressure Provider Name and Address Organization Details Last Updated DateTime 05/27/2024 160.02 cm 37.4 kg/m2 80433.99 g 96 mm[Hg] 66 mm[Hg] [facility] 5 09:40:05 Date Recorded Body height Body mass index (BMI) Body weight Systolic blood pressure Diastolic blood pressure Provider Name and Address Organization Details Last Updated DateTime 06/10/2024 160.02 cm 37.9 kg/m2 17877.77 g 104 mm[Hg] 63 mm[Hg] [facility] 5 09:43:40 Social History Question Answer Notes LastModified by Organizat ion Details LastModified Time Tobacco Smoking Status Never Smoker [facility] 11/27/2023 15:38:21 What Is Your Level Of Alcohol Consumption? Occasional Information not available 01/19/2023 How Many Years Have You Consumed Alcohol? 6 Information not available 01/19/2023 Are You Blind Or Do You Have Difficulty Seeing? No Information n ot available 01/19/2023 What Is Your Level Of Caffeine Consumption? None [email or web address] Information not available 01/22/2024 How Much Tobacco Do You Chew? None Information not available 01/19/2023 In The 14 Days Before Symptom Onset, Have You Had Close Contact With A Laboratory-confirm ed COVID-19 While That Case Was Ill? No Information n ot available 01/19/2023 In The 14 Days Before Symptom Onset, Have You Had Close Contact With A Person Who Is Under Investigation For COVID-19 While That Person Was Ill? No Information not available 01/19/2023 Have You Been To An Area Known To Be High Risk For COVID-19? No Information not available 01/19/2023 Are You Deaf Or Do You Have Serious Difficulty Hearing? No Information not available 01/19/2023 What Type Of Diet Are You Following? REGULAR Information n ot available 01/19/2023 What Is The Highest Grade Or Level Of School You Have Completed Or The Highest Degree You Have Received? 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 Yes Information not available 01/19/2023 Do You Use Protection During Sex? No Information not available 01/19/2023 Do You Use Your Seat Belt Or Car Seat Routinely? Yes Information not available 01/19/2023 Do You Have Smoke And Carbon Monoxide Detectors In Your Home? Yes Information not available 01/19/2023 How Much Tobacco Do You Smoke? No Information not available 01/19/2023 Do You Feel Stressed (tense, Restless, Nervous, Or Anxious, Or Unable To Sleep At Night)? [id number] Information not available 01/19/2023 Do You Use Any Illicit Or Recreational Drugs? Yes Information not available 01/19/2023 Do You Use Sunscreen Routinely? Yes Information not available 01/19/2023 How Many Years Have You Smoked Tobacco? 0 Information not available 01/19/2023 Have You Used IV Drugs? No Information not available 01/19/2023 Sex: Unknown Functional Status Question Answer Note LastModified by Organizat ion Details LastModified Time Do you have difficulty walking or climbing stairs? No Information not available 01/22/2024 Are you able to walk? YESWOREST Information not available 01/19/2023 Are you able to care for yourself? Yes [email or web address] Information not available 01/22/2024 Do you have difficulty dressing or bathing? No [email or web address] Information not available 01/22/2024 What is your exercise level? Occasional Information not available 01/19/2023 Mental Status None recorded. Family History Relationship Description Onset Age of this Age Resolved Age Notes LastModified by Organization Details LastModified Time Mother Heart disease [email or web address] Not available 2022 12:35:43 Maternal Grandmother Heart disease [email or web address] Not available 2022 12:35:43 Maternal Grandfather Diabetes mellitus [email or web address] Not available 2022 12:35:43 Paternal Grandfather Diabetes mellitus [email or web address] Not available 2022 12:35:43 Medical History Condition Response Allergies (Food, seasonal, environmental ) N Other N Breast Cancer N Drug/Latex Allergies/Reactions N Blood Transfusion N Dermatologic Disorders N Lung Disease N Defects or Inherited Disease N Breast Problem N Gestational Diabetes N Hematologic disorders N Anesthesia Complications N History of STI N Deep Vein Thrombosis N Polycystic ovary syndrome N Anxiety Disorder N Autoimmune disease N Arthritis N Infertility N Polyps N Acid Reflux (GERD) N History of abnormal pap N Cancer N Stroke N Varicosities N Neurologic/Epilepsy N Endometriosis N High Cholesterol N Headaches N Fibromyalgia N Kidney Disease N Heart Problems N Kidney or Bladder Problems N Thyroid Problems N GI Problems N Eating Disorder N Anemia N Art (IVF or FET) N Psychiatric Illness N Ovarian Cancer N Diabetes N Pulmonary (TB, Asthma) N Hepatitis/Liver Disease N No Past Medical History N Eczema N Urinary Tract Infection N Abuse/Domestic Violence N Asthma N Trauma/Violence N Depression/ depression N Heart Disease N Pre-Eclampsia Y Hypertension N Osteoporosis N Thrombophilias N Gynecological History Statement/Question Response Flow Moderate Date of LMP 10/01/2023 On BCP's at Conception? N N Was last menstrual period normal Y STIs/STDs N HPV Vaccine Y Duration of Flow (days) 4 Current Control Method Age at First Child 25 Date of control 01/10/2023 Frequency of Cycle (Q days) 30 Sexually Active? Y Seeking Menses Monthly Y Age of first menstrual cycle 12 Date of Last Pap Smear 05/03/2021 Sexual Problems? N LMP Definite N Obstetrics History GPAL:G 3 P 1 0 1 1 Type Value Full Term 1 Spontaneous 1 Living 1 Total 3 Past Encounters Encounter ID Performer Location Encounter Start Date Encounter Closed Date Diagnosis/Indication Diagnosis SNOMED-CT Code Diagnosis ICD10 Code Diagnosis Note [id number] TAQUERIA Figueroa [place] [address] [address] 01/19/2023 12:14:27 01/19/2023 13:10:36 Breast lump 66401205 N63.0 u/s order given - encouraged to schedule Gynecologi c examination 39028281 Z01.419 Take Calcium with Vitamin D 1200mg daily if not receiving in daily diet. It is strongly advised to have an annual flu shot and up can obtain at most pharmacies . If you have not had a TDap shot in the last 10 years you should obtain one as well. Discussed with patient & provided with informatio n regarding Gardisil vaccine to prevent the 4 strains for HPV that cause cervical cancer if under age 26. Encourage safe sexual practices, to use condoms and limit partners if not already in a monogamous relationsh ip. Do monthly self breast exams. Have mammogram yearly or every other year depending on family history. BRCA testing is now available for patients with strong genetic history of female cancer. If interested contact the office. Engage in daily exercise of low impact aerobic exercise 45-60 minutes 4-5 times weekly. Avoid tobacco and illicit drugs as well as using moderation with alcohol intake less than 1-2 8 oz beverages daily. This lifestyle behavior pattern will lead to less health conditions and longer life span. If BMI greater than 25 weight watchers or dietary consult advised. Patient received above instructio ns, and questions have been answered. If you have any questions please call or respond to this email. Patient was made aware of the patient portal and may obtain a paper copy of today's plan if desired. WWEBC - nexplanon, inserted 05/03/21de sires removal to Katy garcia daily PNV starting now, schedule to return for removalno hx of abnormal papslast pap 06/2021 - normal per ptnext pap due testing declinedUT D with PCP for routine labsRTC for nexplanon removal [id number] TAQUERIA Figueroa [place] [address],[place] [address] 01/23/2023 14:57:34 01/23/2023 16:13:13 Removal of subcutaneous contraceptive 176462978 Z30.46 nexplanon removed (see procedure note)pt tolerated procedure wellencour aged daily PNVprecaut ions reviewed with pt [id number] Mindy Longoria [place] [address],[place] [address] 06/12/2023 12:20:25 06/12/2023 13:40:54 Uterine size for dates discrepancy 048444817 O26.841 Z3A.01 [id number] RAND HUITRON MD [place] [address],[place] [address] 06/20/2023 09:29:34 06/20/2023 14:17:50 Mixed anxiety and depressive disorder 777230911 F41.8 - discussed r/b/a of antidepres son therapy in and breastfeed ing, including small risk of TTN at time of delivery, low risk for defects with zoloft and prozac, encourage treating maternal mental health issues- would like to trial zoloft, will start at 25mg and titrate as needed Miscarriage 60989787 O03 .9 - quant hCG dropping as of 06/16- had heavier bleeding, passed blood/tiss ue yesterday, bleeding lightened today- no abdominal pain- plan for serial hCG to trend to negative- discussed waiting for next until hCG resolves- discussed management options of cytotec vs D&C if hCG plateaus [id number] Rosalia Love [place] [address],[place] [address] 11/27/2023 14:45:09 11/27/2023 15:27:02 [id number] RAND HUITRON MD [place] [address],[place] [address] 11/27/2023 14:45:45 12/01/2023 12:15:16 [id number] RAND HUITRON MD [place] [address],[place] [address] 12/05/2023 11:48:29 12/05/2023 12:40:01 Nausea and vomiting 91303447 R11.2 - no improvemen t with unisom/B6- will trial reglan test positive 896904455 Z32.01 1. Exam today within normal limits.2. Ultrasound today confirms GA and viability. EDC . GC/Clamydi a testing done: will f/u as indicated. Would like to defer pap smear to 4. ACOG guidelines and plan of care for reviewed with patient. All questions answered.5 . Return to office at 12 weeks for new OB visit6. Will need new OB labs at next visit.7. Genetic screening: declines. [id number] [facility] [address],[place] [address] 12/25/2023 11:55:14 12/25/2023 12:42:28 screening 601886056 Z36.82 [id number] RAND HUITRON MD [place] [address],[place] [address] 12/25/2023 11:55:37 12/26/2023 09:34:48 Routine care 126307101 Z34.90 Uterine sc ar from previous surgery affecting 74315160 O34.29 Gestation period, 12 weeks 87014842 Z3A.12 - continue PNV Mixed anxi ety and depressive disorder 240188991 F41.8 - prozac, mood stable [id number] RAND HUITRON MD [place] [address],[place] [address] 01/22/2024 09:45:31 01/22/2024 10:18:46 Nausea and vomiting 75513106 R11.2 - improved with zofran Past pregn jacinda history of section 390065531 Z98.890 Gestation period, 16 weeks 47299472 Z3A.16 [id number] [facility] [address],[place] [address] 02/19/2024 09:33:58 02/19/2024 11:51:49 screening 840896093 Z36.0 Z3A.20 [id number] RAND HUITRON MD [place] [address],[place] [address] 02/19/2024 09:34:56 02/19/2024 11:31:39 Nausea and vomiting 54778524 R11.2 - improved with zofran Past pregn jacinda history of section 443521358 Z98.890 Gestation period, 20 weeks 24532166 Z3A.20 [id number] RAND HUITRON MD [place] [address],[place] [address] 03/18/2024 09:54:18 03/19/2024 03:22:22 Body mass index 30+ - obesity 573840549 Z68.35 - testing at 37 weeks Past pregn jacinda history of section 445870080 Z98.890 - desires [facility] Gestation period, 24 weeks 766857871 Z3A.24 [id number] RAND HUITRON MD [place] [address],[place] [address] 04/15/2024 10:10:26 04/15/2024 11:04:20 Body mass index 30+ - obesity 494739847 Z68.35 - testing at 37 weeks Past pregn jacinda history of section 179727647 Z98.890 - [place] [facility] Gestation period, 28 weeks 41987651 Z3A.28 [id number] RAND HUITRON MD [place] [address],[place] [address] 04/28/2024 09:25:43 04/28/2024 10:00:33 Uterine scar from previous surgery affecting 84008694 O34.29 Gestation period, 30 weeks 56805683 Z3A.30 [id number] Rosalia Love [place] [address],[place] [address] 05/13/2024 09:20:43 05/13/2024 10:10:46 Uterine size for dates discrepancy 326084671 O26.843 O09.293 Z3A.32 [id number] RAND HUITRON MD [place] [address],[place] [address] 05/13/2024 10:04:38 05/13/2024 10:43:13 Maternal obesity complicating , childbirth and the puerperium, antepartum 1015512759 07 O99.213 Uterine sc ar from previous surgery affecting 98390909 O34.29 Gestation period, 32 weeks 5336145 Z3A.32 [id number] RAND HUITRON MD [place] [address] [address] 05/27/2024 09:33:44 05/27/2024 11:12:13 Uterine scar from previous surgery affecting 93250711 O34.29 - desires [facility] Gestation period, 34 weeks 53459429 Z3A.34 [id number] RAND HUITRON MD [place] [address],[facility] [place] [address] 06/10/2024 09:30:26 06/10/2024 11:49:16 Uterine scar from previous surgery affecting 83579305 O34.29 - desires [facility] Gestation period, 36 weeks 52468854 Z3A.36 Health Concerns Section Related Observation LastModified by Organization Detai ls LastModified Time None Recorded Concern Status LastModified by Organization Details LastModified Time None Recorded Advance Directives Directive None Recorded Payers Encounter Date Sequence Insurance Name Policy Number Policy Ingram Covered Member ID Ingram Member ID Guarantor Name 04/28/2024 1 [place] [id number] Ifeoma Childers Salineno [id number] Ifeoma Salineno 05/13/2024 1 [place] [id number] Ifeoma Childers Salineno [id number] Ifeoma Tari 05/13/2024 1 [place] [id number] Ifeoma S Salineno [id number] Ifeoma Tari 05/27/2024 1 [place] [id number] Ifeoma S Salineno [id number] Ifeoma Salineno 06/10/2024 1 [place] [id number] Ifeoma Childers Salineno [id number] Ifeoma Barbains OBGyn Episode Ob Episode Information Episode Created Date Number of Fetuses Patient Bloodtype Patient rh Status Prepregnancy Weight lbs Domestic Partner Domestic Partner Phone Father Name Liner Man Status 01/20/20 23 1 CLOSED Fetus Data First Name Last Name Admitted to NICU Weight (g) Sex Living Outcome Pediatric Complications Fetus ID Race Codes Race Delivery Type 2919.77 [id number] Full Term [id number] Primary Chavez Calculation Initial Chavez Date Initial Exam Date Initial Exam Provider Initial Ultrasound Date Last Menstrual Period Date Ultra Sound Weeks Gestation 0 Eighteen To Twenty Week Chavez Update Ultra Sound Date Fundal Height At Umbil Quickening Date Ultra Sound Latest Weeks Gestation Final Chavez Confirmed By Final Chavez Confirmed Date Final Chavez Date Ultra Sound Latest Days Gestation 0 0 Menstrual History Last Menstrual Date Menses Monthly On Bcp Conception Prior Menses Frequency Hcg Plus Date Menarche Onset Age Delivery Information Delivery Date Delivery Type Labor Anesthesia Weeks Gestation Incision Type Labor Labor Length Hrs Delivered By Post Complications Tubal Sterilization Discharge Date Comments 1 38 Discharge Information Feeding Method Contraceptive Method Maternal HG B and HCT Levels Ob Episode Information Episode Created Date Number of Fetuses Patient Bloodtype Patient rh Status Prepregnancy Weight lbs Domestic Partner Domestic Partner Phone Father Name Liner Man Status 11/27/19 24 1 CLOSED Fetus Data First Name Last Name Admitted to NICU Weight (g) Sex Living Outcome Pediatric Complications Fetus ID Race Codes Race Delivery Type , Spontane ous [id number] Chavez Calculation Initial Chavez Date Initial Exam Date Initial Exam Provider Initial Ultrasound Date Last Menstrual Period Date Ultra Sound Weeks Gestation 0 Eighteen To Twenty Week Chavez Update Ultra Sound Date Fundal Height At Umbil Quickening Date Ultra Sound Latest Weeks Gestation Final Chavez Confirmed By Final Chavez Confirmed Date Final Chavez Date Ultra Sound Latest Days Gestation 0 0 Menstrual History Last Menstrual Date Menses Monthly On Bcp Conception Prior Menses Frequency Hcg Plus Date Menarche Onset Age Delivery Information Delivery Date Delivery Type Labor Anesthesia Weeks Gestation Incision Type Labor Labor Length Hrs Delivered By Post Complications Tubal Sterilization Discharge Date Comments 4 Discharge Information Feeding Method Contraceptive Method Maternal HG B and HCT Levels Ob Episode Information Episode Created Date Number of Fetuses Patient Bloodtype Patient rh Status Prepregnancy Weight lbs Domestic Partner Domestic Partner Phone Father Name Liner Man Status 12/25/19 24 1 OPEN Fetus Data First Name Last Name Admitted to NICU Weight (g) Sex Living Outcome Pediatric Complications Fetus ID Race Codes Race Delivery Type [id number] Problems Problem Notes Problem Name Start Date End Date Resolution Snomed Code Not e Body mass index 30+ - obesity [id number] antental testin g at 37wks Past history of section [id number] [facility] Chavez Calculation Initial Chavez Date Initial Exam Date Initial Exam Provider Initial Ultrasound Date Last Menstrual Period Date Ultra Sound Weeks Gestation 07/07/2024 12/25/2023 11/27/2023 10/01/2023 8 Eighteen To Twenty Week Chavez Update Ultra Sound Date Fundal Height At Umbil Quickening Date Ultra Sound Latest Weeks Gestation Final Chavez Confirmed By Final Chavez Confirmed Date Final Chavez Date Ultra Sound Latest Days Gestation 0 0 Pre-prabhu Flowsheet Flowsheet Date 12/25/2023 Weathers Score Blood Edema Fundus Height Fundus Units Glucose Ketones Leukocytes Nitrite Labor Signs Protein Cervic Dilation Cervic Effacement Cervic Station Type Weight in lbs Pre/Post Dialysis Refused Weight 202.465199424546 BP Diastolic BP Location Tested BP Systolic BP Type 68 111 Fetus Heart Rate Present Fetus Movement Comments Patient presents to [facility] care. thus far uncomplicated. Nausea improving, takng zofran and reglan. No cramping or bleeding. NT/NB wnl today, declines NIPT. hx significant for PCS in G1. Discussed routine care. RTC 4 weeks. Flowsheet Date 01/22/2024 Weathers Score Blood Edema Fundus Height Fundus Units Glucose Ketones Leukocytes Nitrite Labor Signs Protein Cervic Dilation Cervic Effacement Cervic Station neg none none trace Type Weight in lbs Pre/Post Dialysis Refused Weight 205.187980921236 BP Diastolic BP Location Tested BP Systolic BP Type 72 L arm 105 sitting Fetus Heart Rate Present Fetus Movement A Yes Comments Patient c/o of nausea howeve r improving, and some cramping. Maybe starting to feel some movement. Went to private US and they think it's a boy! Discussed anatomy US next visit. Got flu and COVID shot. RTC 4 weeks. Flowsheet Date 02/19/2024 Weathers Score Blood Edema Fundus Height Fundus Units Glucose Ketones Leukocytes Nitrite Labor Signs Protein Cervic Dilation Cervic Effacement Cervic Station Type Weight in lbs Pre/Post Dialysis Refused BP Diastolic BP Location Tested BP Systolic BP Type Fetus Heart Rate Present Fetus Movement Comments Flowsheet Date 02/19/2024 Weathers Score Blood Edema Fundus Height Fundus Units Glucose Ketones Leukocytes Nitrite Labor Signs Protein Cervic Dilation Cervic Effacement Cervic Station neg none none trace Type Weight in lbs Pre/Post Dialysis Refused Weight 207.409964464692 BP Diastolic BP Location Tested BP Systolic BP Type 75 L arm 114 sitting Fetus Heart Rate Present A 148 Fetus Movement A Yes Comments Patient c/o of nausea and vo miting, and one episode of lightheadedness. No cramping or bleeding. Good movement. Anatomy US complete and normal aside from LV EIF. Discussed and reassured patient. EFW 27%. Will repeat growth US at 32 weeks. RTC 4 weeks. Flowsheet Date 03/18/2024 Weathers Score Blood Edema Fundus Height Fundus Units Glucose Ketones Leukocytes Nitrite Labor Signs Protein Cervic Dilation Cervic Effacement Cervic Station Type Weight in lbs Pre/Post Dialysis Refused 208.779120540483 BP Diastolic BP Location Tested BP Systolic BP Type 73 L arm 107 sitting Fetus Heart Rate Present A 145 Fetus Movement A Yes Comments Doing well, good movem ent. No cramping or bleeding. Discussed GCT and labs for next visit. RTC 4 weeks. Flowsheet Date 04/15/2024 Weathers Score Blood Edema Fundus Height Fundus Units Glucose Ketones Leukocytes Nitrite Labor Signs Protein Cervic Dilation Cervic Effacement Cervic Station neg none Type Weight in lbs Pre/Post Dialysis Refused Weight 211.343709870738 BP Diastolic BP Location Tested BP Systolic BP Type 69 L arm 104 sitting Fetus Heart Rate Present A 145 Fetus Movement A Yes Comments Patient c/o lower back and h ip pain. Good movement. No cramping or bleeding. GCT and labs today. Discussed tdap. RTC 2 weeks. Flowsheet Date 04/28/2024 Weathers Score Blood Edema Fundus Height Fundus Units Glucose Ketones Leukocytes Nitrite Labor Signs Protein Cervic Dilation Cervic Effacement Cervic Station neg none Type Weight in lbs Pre/Post Dialysis Refused Weight 206.907529458967 BP Diastolic BP Location Tested BP Systolic BP Type 69 L arm 113 sitting Fetus Heart Rate Present Fetus Movement A Yes Comments Doing well, good movem ent. No ctx, LOF, VB. Will schedule RCS for 07/01. Passed 3h GTT. Repeat growth US next visit. Has not yet received tdap, will get with RSV at 32 weeks. RTC 2 weeks. Flowsheet Date 05/13/2024 Weathers Score Blood Edema Fundus Height Fundus Units Glucose Ketones Leukocytes Nitrite Labor Signs Protein Cervic Dilation Cervic Effacement Cervic Station Type Weight in lbs Pre/Post Dialysis Refused BP Diastolic BP Location Tested BP Systolic BP Type Fetus Heart Rate Present Fetus Movement Comments Flowsheet Date 05/13/2024 Weathers Score Blood Edema Fundus Height Fundus Units Glucose Ketones Leukocytes Nitrite Labor Signs Protein Cervic Dilation Cervic Effacement Cervic Station neg none Type Weight in lbs Pre/Post Dialysis Refused Weight 213.725308651684 BP Diastolic BP Location Tested BP Systolic BP Type 69 L arm 103 sitting Fetus Heart Rate Present Fetus Movement A Yes Comments Patient c/o of slight nausea , lower back and hip pain. States had some lightheadedness yesterday. Good movement. No bleeding. EFW 47%, vertex. Discussed RSV and preadmission. RCS scheduled 07/01. RTC 2 weeks. Flowsheet Date 05/27/2024 Weathers Score Blood Edema Fundus Height Fundus Units Glucose Ketones Leukocytes Nitrite Labor Signs Protein Cervic Dilation Cervic Effacement Cervic Station neg none Type Weight in lbs Pre/Post Dialysis Refused Weight 211.069655522650 BP Diastolic BP Location Tested BP Systolic BP Type 66 L arm 96 sitting Fetus Heart Rate Present A 145 Fetus Movement A Yes Comments Patient c/o of slight nausea . Good movement. No cramping or bleeding. Received RSV and Tdap vaccines. Needs to schedule preadmission. Will start testing for BMI >35 at 37 weeks. RTC 2 weeks. Flowsheet Date 06/10/2024 Weathers Score Blood Edema Fundus Height Fundus Units Glucose Ketones Leukocytes Nitrite Labor Signs Protein Cervic Dilation Cervic Effacement Cervic Station neg none Type Weight in lbs Pre/Post Dialysis Refused Weight 214.465469396957 BP Diastolic BP Location Tested BP Systolic BP Type 63 L arm 104 sitting Fetus Heart Rate Present A 155 Fetus Movement A Yes Comments Patient c/o left upper pain. Good movement. No cramping or bleeding. Has URI, doing well with symptomatic treatment. GBS collected today. Will start testing next week for obesity. RTC 1 week. Menstrual History Last Menstrual Date Menses Monthly On Bcp Conception Prior Menses Frequency Hcg Plus Date Menarche Onset Age 0510/01/2023 Delivery Information Delivery Date Delivery Type Labor Anesthesia Weeks Gestation Incision Type Labor Labor Length Hrs Delivered By Post Complications Tubal Sterilization Discharge Date Comments Discharge Information Feeding Method Contraceptive Method Maternal HG B and HCT Levels
--- OUTSIDE RECORDS SUMMARY | 2024-06-15 12:15 | XMS_ITS | Encounter Summary ---
Author Organization [facility] Healthcare Address [address] [place] [address] Care Team Providers Care Munitions Factory Worker Name Role Phone Ozzie Andrews Primary Care Provider [phone] Encounter Details Date Type Department Care Team (Late st Contact Info) Description 06/29/2023 Orders Only [facility] Health Information Management [address] [place] [id number] Scanning, Provider Social History Tobacco Use Types Packs/Day Years Used Date Smoking Tobacco: Never Smokeless Tobacco: Never Alcohol Use Standard Drinks/Week Comments Yes 0 (1 standard drink = 0.6 oz pur e alcohol) AUDIT-C Answer Date Recorded Q1: How often do you have a drink containing alc ohol? Monthly or less 11/23/2021 Q2: How many drinks containi ng alcohol do you have on a typical day when you are drinking? 1 or 2 11/23/2021 Frequency of Binge Drinking Not on file 11/05 PHQ-2 Answer Date Recorded PHQ-2 Total Score (If total score is 3 or more points, staff should administer the PHQ-9) 1 11/23/2021 Personal Safety Answer Date Recorded Getting School Help Needed Not on file 05/21 Comments Unknown Sex and Gender Information Value Date Recorded Sex Assigned at Not on file Legal Sex Female 7:09 PM PHARMACY RETAIL SUPPORT SPECIALIST Gender Identity Female 04/02/2020 11:49 AM PHARMACY RETAIL SUPPORT SPECIALIST Sexual Orientation Straight 04/02/2020 11 :49 AM PHARMACY RETAIL SUPPORT SPECIALIST documented as of this encounter Plan of Treatment Not on file documented as of this encounter Procedures Procedure Name Priority Date/Time Associated Diagnosis Comments SCAN - LABS 06/29/2023 documented in this encounter Results * SCAN - LABS (06/29/2023) us Provider Scanning Final Result documented in this encounter Visit Diagnoses Not on filedocumented in this encounter Care Teams Munitions Factory Worker Relationship Specialty Start Date End Date Ozzie Andrews PA PCP - General Family Medicine 10/28/18 documented as of this encounter
--- OUTSIDE RECORDS SUMMARY | 2024-06-15 12:15 | XMS_ITS | Encounter Summary ---
Author Organization [facility] Healthcare Address [address] [place] [address] Care Team Providers Care Warp Clamper Name Role Phone Ozzie Andrews Primary Care Provider [phone] Encounter Details Date Type Department Care Team (Late st Contact Info) Description 06/22/2023 Orders Only [facility] Health Information Management [address] [place] [id number] Scanning, Provider Social History Tobacco Use [...] on file Legal Sex Female 7:09 PM COLLECTOR Gender Identity Female 04/02/2020 11:49 AM COLLECTOR Sexual Orientation Straight 04/02/2020 11 :49 AM COLLECTOR documented as of this encounter Plan of Treatment Not on file documented as of this encounter Procedures Procedure Name Priority Date/Time Associated Diagnosis Comments SCAN - LABS 06/22/2023 documented in this encounter Results * SCAN - LABS (06/22/2023) us Provider Scanning Final Result documented in this encounter Visit Diagnoses Not on filedocumented in this encounter Care Teams Warp Clamper Relationship Specialty Start Date End Date Ozzie Andrews PA PCP - General Family Medicine 10/28/18 documented as of this encounter
[2024-06-15 13:11] VITALS: BP 133/88; PULSE 100; RESP 18; TEMP 36.2; O2SAT 99
[2024-06-15 14:31] LABS: EDCOVIDSCREEN Negative (Negative); EDINFLUASCREEN Negative (Negative); EDINFLUBSCREEN Negative (Negative)
--- NOTE | 2024-06-15 15:49 | ED.GENADULT ---
HPI - General Adult General Chief complaint: Upper Respiratory Infection Stated complaint: flu-like symptoms/ increased HR Time Seen by Provider: 06/15/24 15:20 Source: patient History of Present Illness HPI narrative: MRI is a 28-year-old female here for flu-like symptoms started 1 week ago. She does report being 37 weeks today. She reports fatigue with standing. She reports being told by her OB specialist to drink water and rest. She is concerned her blood pressure is high for her. She denies any swelling in the ankles. She does report a history of preeclampsia with her last . She reports her last OB appointment was on Sunday. And she is due for her next OB appointment this week on Sunday, 06/18. She is concerned about blood pressure and pulse increasing while she changes position. Related Data Home Medications ?Medication ?Instructions ?Recorded ?Confirmed ?Last Taken ?Type omeprazole 40 mg capsule,delayed 40 mg PO DAILY 12/17/20 06/10/24 06/10/24 History release fluoxetine 20 mg capsule 20 mg PO DIRECTED 06/19/22 06/10/24 06/10/24 History aspirin 81 mg tablet,delayed 81 mg PO DAILY 06/10/24 06/10/24 06/10/24 History release (Adult Aspirin Regimen) ondansetron HCl 8 mg tablet mg PO PRN nausea and vomiting 06/10/24 06/06/24 History vits no.130-ferrous fum 1 tablet PO DAILY 06/10/24 06/10/24 06/10/24 History 27 mg iron-folic acid 800 mcg tablet ( Vitamin) Allergies Allergy/AdvReac Type Severity Reaction Status Date / Time No Known Allergies Allergy Verified 06/15/24 15:43 [facility] Past Medical History Medical History Breast cyst Delivery by section for breech presentation Encounter for surveillance of implantable subdermal contraceptive GBS (group B streptococcus) infection Heart palpitations Preeclampsia Surgical History Surgical History History of removal of skin mole Family History Family History Father Hypertension Mother Hypertension Depression Heart disease Grandparent Diabetes mellitus Heart disease Social History Social History Smoking status: Never smoker Alcohol intake: former Substance use: never Substance use type: marijuana Last use: 2 days ago Occupation/Education: student Gender identity (if verbalized by the patient): Female Spiritual care concerns: No Agree to blood products: Yes Course Vital Signs Vital signs: Vital Signs Temperature 36.2 C L 06/15/24 13:11 Pulse Rate 100 06/15/24 13:11 Respiratory Rate 18 06/15/24 13:11 Blood Pressure 133/88 06/15/24 13:11 Pulse Oximetry 99 06/15/24 13:11 Oxygen Delivery Room Air 06/15/24 13:11 Temperature 36.2 C L 06/15/24 13:11 Pulse Rate 100 06/15/24 13:11 Respiratory Rate 18 06/15/24 13:11 Blood Pressure 133/88 06/15/24 13:11 Pulse Oximetry 99 06/15/24 13:11 Oxygen Delivery Room Air 06/15/24 13:11 Medical Decision Making Vital Signs Vital Signs: Vital Signs Temperature 36.2 C L 06/15/24 13:11 Pulse Rate 100 06/15/24 13:11 Respiratory Rate 18 06/15/24 13:11 Blood Pressure 133/88 06/15/24 13:11 Pulse Oximetry 99 06/15/24 13:11 Oxygen Delivery Room Air 06/15/24 13:11 Temperature 36.2 C L 06/15/24 13:11 Pulse Rate 100 06/15/24 13:11 Respiratory Rate 18 06/15/24 13:11 Blood Pressure 133/88 06/15/24 13:11 Pulse Oximetry 99 06/15/24 13:11 Oxygen Delivery Room Air 06/15/24 13:11 Lab Data Labs: Lab Results 06/15/24 Range/Units 14:29 POC Influenza A Ag Negative (Negative) POC Influenza B Ag Negative (Negative) POC SARS CoV-2 Ag Negative (Negative) Discharge Plan Discharge Clinical Impression: Proteinuria affecting Qualifiers: Trimester: third trimester Qualified Code(s): O12.13 - Gestational proteinuria, third trimester Patient Disposition: Acute [facility] Condition: Stable Additional Instructions: Proceed directly to [facility] L&D department for further evaluation and treatment. Patient Language: Macedonian Prescriptions: No Action fluoxetine 20 mg capsule 20 mg PO DIRECTED omeprazole 40 mg capsule,delayed release(DR/EC) 40 mg PO DAILY ondansetron HCl 8 mg tablet PO PRN (Reason: nausea and vomiting) Vitamin 27 mg iron- 800 mcg tablet 1 tablet PO DAILY aspirin [Adult Aspirin Regimen] 81 mg tablet,delayed release (DR/EC) 81 mg PO DAILY Follow-up/Referrals: Juliana,Ozzie Mcginnis PA-C [Primary Care Provider] - Time of Disposition: 16:03
[2024-06-15 15:53] LABS: EDUAAPPEAR Cloudy; EDUABILI 2+ (Negative); EDUABLOOD Negative (Negative); EDUACOLOR1 Dark; EDUAGLUCOSE Negative (Negative); EDUAKETONE 4+ (Negative); EDUALEUKO Negative (Negative); EDUANITRATE Negative (Negative); EDUAPROTEIN 2+ (Negative)
== END 2024-06-15 16:00 | disposition short-term general hospital (02) ==
PROVIDERS: Emergency Provider Nurse Practitioner; PCP Physician Assistant
DX: O12.13 Gestational proteinuria, third trimester (principal); O14.93 Unspecified pre-eclampsia, third trimester; Z3A.37 37 weeks gestation of pregnancy; F12.90 Cannabis use, unspecified, uncomplicated; Z20.822 Contact with and (suspected) exposure to COVID-19
CPT/HCPCS: 81003; 87426; 87804; 99212; G0463

== ENCOUNTER 2024-06-15 16:28 | Outpatient (CLI) | payer BC, SELFPAY ==
[2024-06-15] VITALS (12 sets, daily range): BP systolic 119–126; BP diastolic 77–86; PULSE 65–99; O2SAT 98–100
--- OUTSIDE RECORDS SUMMARY | 2024-06-15 16:34 | XMS_ITS | Encounter Summary ---
Author Organization [facility] Facility Care Team Providers Care Microfilm Machine Operator Name Role Phone Ozzie Andrews Primary Care Provider [phone] Encounter Details Date Type Department Care Team (Latest Contact Info) Description 09/18/2017 Orders Only [facility] Provider, MD Oziel [address] [place] [address] Social History Tobacco Use Types Packs/Day Years Used Date Smoking Tobacco: Never Assessed Comments Unknown Sex and Gender Information Value Date Recorded Sex Assigned at Not on file Legal Sex Female 7:09 PM OUTREACH DIRECTOR Gender Identity Female 04/02/2020 11:49 AM OUTREACH DIRECTOR Sexual Orientation Straight 04/02/2020 11 :49 AM OUTREACH DIRECTOR documented as of this encounter Plan of [...] COVID: Suspected 05/25/2021 05/25/2021 05/25/2021 7:58 PM OUTREACH DIRECTOR documented as of this encounter Care Teams Microfilm Machine Operator Relationship Specialty Start Date End Date Ozzie Andrews PA PCP - General Family Medicine 10/28/18 documented as of this encounter
--- OUTSIDE RECORDS SUMMARY | 2024-06-15 16:34 | XMS_ITS | Clinical Summary ---
Author Organization [facility] Address [address] [place] [address] Care Team Providers Care Veterinary Assistant Technician Name Role Phone Ozzie Andrews Primary Care Provider Allergies No known active allergies Medications fexofenadine [...] understanding Assessment & Plan (07/04/2023 8:40 AM SENIOR WINDOWS ENGINEER): Images from the original note were not [...] 05/25/2021 Assessment & Plan (05/25/2021 9:26 AM SENIOR WINDOWS ENGINEER): Self-isolate 10 days from start of symptoms Increase fluid intake Report new or worsening symptoms Warning signs warranting immediate medical care: chest pain, trouble breathing, worsening shortness of breath Ear pressure, right 04/02/2020 Assessment & Plan (08/02/2021 8:32 AM CDT): resolved Assessment & Plan (04/02/2020 12:28 PM SENIOR WINDOWS ENGINEER): Due to symptoms and sinus congestion which [...] mapping Assessment & Plan (07/04/2023 8:41 AM SENIOR WINDOWS ENGINEER): Mole mapping performed skin care discussed Assessment & Plan (11/23/2021 7:48 AM CDT): Will call back to schedule shave BX right tricep due to irritation Assessment & Plan (06/21/2021 9:10 AM SENIOR WINDOWS ENGINEER): With scheduling mole mapping Routine general medical exam ination at a health care facility 10/23/2018 Assessment & Plan (07/04/2023 8:40 AM SENIOR WINDOWS ENGINEER): Healthcare maintenance updated Assessment & Plan (06/21/2021 9:10 AM SENIOR WINDOWS ENGINEER): Healthcare maintenance updated Body mass index (bmi) 38.0-38.9, adult 9 Lump of right breast 12/26/2017 Generalized anxiety disorder 01/05/2017 Assessment & Plan (08/06/2023 9:57 AM CDT): This is well controlled with no SI HI continue current meds follow-up six-month Assessment & Plan (07/04/2023 8:39 AM SENIOR WINDOWS ENGINEER): This is controlled current medications continue current meds follow-up routine there is no SI HI. Open door open Assessment & Plan (11/23/2021 7:52 AM CDT): Fair control, increasing prozac to 20, no SI/HI, f/u routine, MHC ordered Assessment & Plan (08/02/2021 8:32 AM CDT): Improved, CPM, refilled medications, f/u 6 months Assessment & Plan (06/21/2021 9:10 AM SENIOR WINDOWS ENGINEER): Images from the original note were not [...] is well controlled chronic condition continue current [id number] medication Assessment & Plan (08/02/2021 8:33 AM CDT): CPM Assessment & Plan (06/21/2021 9:09 AM SENIOR WINDOWS ENGINEER): This is well controlled with current medication [...] 07/09/2013 OPV 03/19/1996,01/16/1996 PPD TEST 10/20/2019, 9,10/22/2017,11/15 Dashbell Sars-Cov-2 Bivalent V accination (12+ YRS) 01/03/2024 [...] on file Legal Sex Female 7:09 PM SENIOR WINDOWS ENGINEER Gender Identity Female 04/02/2020 11:49 AM SENIOR WINDOWS ENGINEER Sexual Orientation Straight 04/02/2020 11 :49 AM SENIOR WINDOWS ENGINEER Obstetrics History Last Filed Vital Signs Vital [...] complete this topic Varicella Vaccines Discontinued Insurance [employer] [place] [place] Care Teams Veterinary Assistant Technician Relationship Specialty Start Date End Date Ozzie Andrews PA PCP - General Family Medicine 10/28/18
--- OUTSIDE RECORDS SUMMARY | 2024-06-15 16:34 | XMS_ITS | Encounter Summary ---
Author Organization [facility] Facility Care Team Providers Care Mobile Pet Groomer Name Role Phone Ozzie Andrews Primary Care Provider [phone] Encounter Details Date Type Department Care Team (Latest Contact Info) Description 09/02/2015 Orders Only [facility] Provider, MD Oziel [address] [place] [address] Social History Tobacco Use Types Packs/Day Years Used Date Smoking Tobacco: Never Assessed Comments Unknown Sex and Gender Information Value Date Recorded Sex Assigned at Not on file Legal Sex Female 7:09 PM AMR PHYSICIAN Gender Identity Female 04/02/2020 11:49 AM AMR PHYSICIAN Sexual Orientation Straight 04/02/2020 11 :49 AM AMR PHYSICIAN documented as of this encounter Plan of [...] COVID: Suspected 05/25/2021 05/25/2021 05/25/2021 7:58 PM AMR PHYSICIAN documented as of this encounter Care Teams Mobile Pet Groomer Relationship Specialty Start Date End Date Ozzie Andrews PA PCP - General Family Medicine 10/28/18 documented as of this encounter
--- OUTSIDE RECORDS SUMMARY | 2024-06-15 16:34 | XMS_ITS | Encounter Summary ---
Author Organization [facility] Healthcare Address [address] [place] [address] Care Team Providers Care Business Development Sales Executive Name Role Phone Ozzie Andrews Primary Care Provider [phone] Encounter Details Date Type Department Care Team (Late st Contact Info) Description 06/22/2023 Orders Only [facility] Health Information Management [address] [place] [id number] Scanning, Provider Social History Tobacco Use [...] on file Legal Sex Female 7:09 PM DINKEY OPERATOR Gender Identity Female 04/02/2020 11:49 AM DINKEY OPERATOR Sexual Orientation Straight 04/02/2020 11 :49 AM DINKEY OPERATOR documented as of this encounter Plan of Treatment Not on file documented as of this encounter Procedures Procedure Name Priority Date/Time Associated Diagnosis Comments SCAN - LABS 06/22/2023 documented in this encounter Results * SCAN - LABS (06/22/2023) us Provider Scanning Final Result documented in this encounter Visit Diagnoses Not on filedocumented in this encounter Care Teams Business Development Sales Executive Relationship Specialty Start Date End Date Ozzie Andrews PA PCP - General Family Medicine 10/28/18 documented as of this encounter
--- OUTSIDE RECORDS SUMMARY | 2024-06-15 16:34 | XMS_ITS | Referral Summary ---
Author Organization [facility] Address [address] [place] [address] Care Team Providers Care Landscape Crew Leader Name Role Phone Ozzie Andrews Primary Care Provider [phone] Allergies No known active allergies Medications fexofenadine [...] understanding Assessment & Plan (07/04/2023 8:40 AM EXCHANGE CONSULTANT): Images from the original note were not [...] 05/25/2021 Assessment & Plan (05/25/2021 9:26 AM EXCHANGE CONSULTANT): Self-isolate 10 days from start of symptoms Increase fluid intake Report new or worsening symptoms Warning signs warranting immediate medical care: chest pain, trouble breathing, worsening shortness of breath Ear pressure, right 04/02/2020 Assessment & Plan (08/02/2021 8:32 AM CDT): resolved Assessment & Plan (04/02/2020 12:28 PM EXCHANGE CONSULTANT): Due to symptoms and sinus congestion which [...] mapping Assessment & Plan (07/04/2023 8:41 AM EXCHANGE CONSULTANT): Mole mapping performed skin care discussed Assessment & Plan (11/23/2021 7:48 AM CDT): Will call back to schedule shave BX right tricep due to irritation Assessment & Plan (06/21/2021 9:10 AM EXCHANGE CONSULTANT): With scheduling mole mapping Routine general medical exam ination at a health care facility 10/23/2018 Assessment & Plan (07/04/2023 8:40 AM EXCHANGE CONSULTANT): Healthcare maintenance updated Assessment & Plan (06/21/2021 9:10 AM EXCHANGE CONSULTANT): Healthcare maintenance updated Body mass index (bmi) 38.0-38.9, adult 9 Lump of right breast 12/26/2017 Generalized anxiety disorder 01/05/2017 Assessment & Plan (08/06/2023 9:57 AM CDT): This is well controlled with no SI HI continue current meds follow-up six-month Assessment & Plan (07/04/2023 8:39 AM EXCHANGE CONSULTANT): This is controlled current medications continue current meds follow-up routine there is no SI HI. Open door open Assessment & Plan (11/23/2021 7:52 AM CDT): Fair control, increasing prozac to 20, no SI/HI, f/u routine, MHC ordered Assessment & Plan (08/02/2021 8:32 AM CDT): Improved, CPM, refilled medications, f/u 6 months Assessment & Plan (06/21/2021 9:10 AM EXCHANGE CONSULTANT): Images from the original note were not [...] is well controlled chronic condition continue current vmbj-qdl-uwvkexr medication Assessment & Plan (08/02/2021 8:33 AM CDT): CPM Assessment & Plan (06/21/2021 9:09 AM EXCHANGE CONSULTANT): This is well controlled with current medication [...] 07/09/2013 OPV 03/19/1996,01/16/1996 PPD TEST 10/20/2019, 9,10/22/2017,11/15 [facility] Sars-Cov-2 Bivalent V accination (12+ YRS) 01/03/2024 [...] on file Legal Sex Female 7:09 PM EXCHANGE CONSULTANT Gender Identity Female 04/02/2020 11:49 AM EXCHANGE CONSULTANT Sexual Orientation Straight 04/02/2020 11 :49 AM EXCHANGE CONSULTANT Last Filed Vital Signs Vital Sign Reading [...] Plan of Treatment Not on file [place] Care Teams Landscape Crew Leader Relationship Specialty Start Date End Date Ozzie Andrews PA PCP - General Family Medicine 10/28/18
--- OUTSIDE RECORDS SUMMARY | 2024-06-15 16:34 | XMS_ITS | Encounter Summary ---
Author Organization [facility] Healthcare Address [address] [place] [address] Care Team Providers Care Push Bench Operator Helper Name Role Phone Ozzie Andrews Primary Care Provider Encounter Details Date Type Department Care Team (Late st Contact Info) Description 06/29/2023 Orders Only [facility] Health Information Management [address] [place] [id number] Scanning, Provider Social History Tobacco Use [...] on file Legal Sex Female 7:09 PM PHOTOGRAPHER'S MODEL Gender Identity Female 04/02/2020 11:49 AM PHOTOGRAPHER'S MODEL Sexual Orientation Straight 04/02/2020 11 :49 AM PHOTOGRAPHER'S MODEL documented as of this encounter Plan of Treatment Not on file documented as of this encounter Procedures Procedure Name Priority Date/Time Associated Diagnosis Comments SCAN - LABS 06/29/2023 documented in this encounter Results * SCAN - LABS (06/29/2023) us Provider Scanning Final Result documented in this encounter Visit Diagnoses Not on filedocumented in this encounter Care Teams Push Bench Operator Helper Relationship Specialty Start Date End Date Ozzie Andrews PA PCP - General Family Medicine 10/28/18 documented as of this encounter
--- OUTSIDE RECORDS SUMMARY | 2024-06-15 16:35 | XMS_ITS | Encounter Summary ---
Author Organization [facility] Facility Care Team Providers Care Elementary Reading Tutor Name Role Phone Ozzie Andrews Primary Care Provider [phone] Encounter Details Date Type Department Care Team (Latest Contact Info) Description 09/27/2015 Orders Only [facility] Provider, MD Oziel [address] [place] [address] Social History Tobacco Use Types Packs/Day Years Used Date Smoking Tobacco: Never Assessed Comments Unknown Sex and Gender Information Value Date Recorded Sex Assigned at Not on file Legal Sex Female 7:09 PM LOCATION DIRECTOR Gender Identity Female 04/02/2020 11:49 AM LOCATION DIRECTOR Sexual Orientation Straight 04/02/2020 11 :49 AM LOCATION DIRECTOR documented as of this encounter Plan [...] COVID: Suspected 05/25/2021 05/25/2021 05/25/2021 7:58 PM LOCATION DIRECTOR documented as of this encounter Care Teams Elementary Reading Tutor Relationship Specialty Start Date End Date Ozzie Andrews PA PCP - General Family Medicine 10/28/18 documented as of this encounter
[2024-06-15 17:06] LABS: Basophils Percent Auto 0.2 % (0.2-1.2); Eosinophils Percent Auto 0.2 % (0-4.4); Hematocrit 39.4 % (37.0-47.0); Hemoglobin 13.9 g/dL (12.0-15.0); Immature Granulocyte Absolute 0.05 K/mm3 (0.00-0.031); Immature Granulocyte Percent A 0.5 % (0-0.5); Lymphocytes Absolute Auto 1.88 K/mm3 (0.9-3.2); Mean Corpuscular HGB Conc 35.3 g/dl (32-36); Mean Corpuscular Volume 85.1 fl (80-100); Mean Platelet Volume 10.6 fl (7.4-10.4); Monocytes Absolute Auto 0.4 K/mm3 (0.1-0.6); Monocytes Percent Auto 3.9 % (2.6-8.5); Neutrophils Absolute Auto 7.5 K/mm3 (1.3-6.7); Neutrophils Percent Auto 76.2 % (45.5-73.1); Platelet Count Result 250 k/mm3 (150-375); Red Blood Count 4.63 M/mm3 (4.2-5.4); Red Cell Distribution Width 12.9 % (11.5-14.5); White Blood Count 9.9 K/mm3 (4.5-10.0)
[2024-06-15 17:19] LABS: Alanine Aminotransferase 19 U/L (6-35); Albumin Level 3.9 g/dL (3.5-5.1); Alkaline Phosphatase 278 U/L (38-126); Anion Gap 16 mmol/L (4-12); Aspartate Amino Transferase 23 U/L (14-36); Bilirubin,Total 0.7 mg/dL (0.2-1.3); Blood Urea Nitrogen 7 mg/dL (7-17); Calcium 9.5 mg/dL (8.4-10.2); Carbon Dioxide 15 mmol/L (22-30); Chloride 105 mmol/L (98-107); Estimated Glomerular Filt Rate > 60; Glucose 76 mg/dL (65-110); Potassium 4.1 mmol/L (3.4-5.0); Sodium 136 mmol/L (137-145); Uric Acid 8.8 mg/dL (2.5-7.5)
[2024-06-15 17:46] LABS: Creatinine Urine 320.4 mg/dL; Total Protein Urine Random 124 mg/dL; Ur Ttl Prot Creatinine Ratio 0.39 mg/mg (0-0.20)
[2024-06-15 18:00] LABS: Add Urine Microscopic? YES; Appearance Urine Turbid (Clear); Bacteria Urine Rare /hpf; Bilirubin Urine 2+ (Negative); Blood Urine Negative (Negative); Color Urine Dark Yellow (Yellow); Glucose Urine UA Negative (Negative); Ketones Urine 4+ mg/dL (Negative); Leukocyte Esterase Ur Negative LEU/UL (Negative); Mucus Urine Present /lpf; Need Manual Microscopic Reviewed; Nitrate Urine Negative (Negative); Non Pathogenic Casts >20; Protein Urine 2+ mg/dL (Negative); RBC Urine 0-2 /hpf (0-2); Specific Grav Ur 1.029 (1.001-1.035); Squamous Epithelial Cell Urine Many /hpf (Few); WBC Urine 0-5 /hpf (0-3); pH Urine 5.5 (5.0-9.0)
== END 2024-06-15 18:16 | disposition home or self-care (01) ==
LOC: ANHOBOP 16:33 → ANHOBPP 16:35
PROVIDERS: Obstetrics & Gynecology; PCP Physician Assistant; Visit Provider Obstetrics & Gynecology
DX: O13.9 Gestational [pregnancy-induced] hypertension without significant proteinuria, unspecified trimester (principal); Z3A.00 Weeks of gestation of pregnancy not specified
CPT/HCPCS: 36415; 59025; 80053; 81001; 82570; 84156; 84550; 85025; 99199

== ENCOUNTER 2024-06-17 18:58 | Outpatient (CLI) | payer BC, SELFPAY ==
[2024-06-17] VITALS (7 sets, daily range): BP systolic 119–123; BP diastolic 79–88; PULSE 86–102; BMI 35.9
--- OUTSIDE RECORDS SUMMARY | 2024-06-17 19:04 | XMS_ITS | Data Portability ---
Author Organization [facility], [facility] Address [address] [place] [address] Care Team Providers Care Angle Furnaceman Name Role Phone ERMELINDA SALDANA Primary Care [...] section (SURG) 2023 025 [id number] [facility], [address] [address], [place], [address], 04/29/2024 09:10:37 Imaging US, obstetr ic, follow- up 2024 025 [email or web address] [place], [facility] [address], [address], [place], [address], 05/13/2024 13:24:13 Medication Orders None recorde d. Patient TargetsNo targets recorded. Patient InstructionsNo instructions recorded. Reason for Referral None Reported. Results Created Date Observation Date Name Description Value Unit Range Abnormal Flag Note LastModifiedBy Organization Detail LastModifiedTime 04/15/2004/15/2024 HEMAT OCRIT (HCT) HCT 34.7 % (based on docume nted legal sex) 34.0-4 5.0 Not Available [facility] (Lab) [address] [facility], [place], [address], 04/16/2024 12:58:48 04/15/20 24 04/15/2024 HEMOG LOBIN (HGB) HGB 11.7 g/dL (based on docume nted legal sex) 11.6-1 5.4 Not Available [facility] (Lab) [address], [place], [address], 04/16/2024 12:58:49 04/15/20 24 04/15/2024 GTT - GESTA ANDRZEJ L MUSAE N, ACOG OB glucose, 1 hour screen 145 mg/dL 70-[address] [facility] (Lab) [address], [place], [address], 04/16/2024 12:58:49 04/15/20 24 04/15/2024 HIV 1/2 ANTIG EN/AN TIBOD Y, REFLE X CONFI RMATI ON HIV antigen/anti body Nonrea ctive nonrea ctive HIV-1 antig en and HIV-1 /HIV- 2 antib odies were not detec danielle. No labor atory evide nce of HIV infec tion. Not Available [facility] (Lab) [address], [place], [address], 04/16/2024 12:58:50 04/15/20 04/15/2024 RPR SCREE N, REFLE X TITER /CONF IRMAT ION RPR screen Nonrea ctive nonrea ctive Not Available [facility] (Lab) [address] [facility], [place], [address], 04/16/2024 12:58:50 04/18/20 24 04/18/2024 GTT - GESTA ANDRZEJ L, 3 HOUR, ACOG glucose, fasting acog 72 mg/dL 70-94 Not Available [facility] (Lab) [address] [facility], [place], [address], 04/19/2024 06:34:27 04/18/20 24 04/18/2024 GTT - GESTA ANDRZEJ L, 3 HOUR, ACOG glucose, 1 hour acog 131 mg/dL 70-[address] [facility] (Lab) [address] [place], [address], 04/19/2024 06:34:27 04/18/20 24 04/18/2024 GTT - GESTA ANDRZEJ L, 3 HOUR, ACOG glucose, 2 hour acog 104 mg/dL 70-[address] [facility] (Lab) [address] [place], [address], 04/19/2024 06:34:27 04/18/20 24 04/18/2024 GTT - GESTA ANDRZEJ L, 3 HOUR, ACOG glucose, 3 hour acog 63 mg/dL 70-[address] [facility] (Lab) [address] [place], [address], 04/19/2024 06:34:27 06/10/19 25 06/10/2024 CULTU RE: GROUP B STREP SCREE N, REFLE X SUSCE PTIBI LITY result report SEE RESULT S BELOW Test: Cultu re: Group B Strep , Refle x Susce ptibi lity ([facility]/ [facility] ) Speci men Sourc e: Vagin a/Rec anil Speci men Type: Vagin al/Re ctal Speci men Date: 025 0941 Resul t Date: 025 1416 Resul t Statu s: Final resul t Abnor mal: No Resul ting Lab: [facility] [address] [facility] [address] Tel: [phone] CULTU RE ----- ----- ----- --- No Group B strep isola danielle at 2 days (tristan ctive broth enhan cemen t) Not Available [facility] (Lab) [address] [facility], [place], [address], 06/13/2024 15:19:46 05/13/1905/13/2024 , obste tric, follo w-up No observ ation record ed. [email or web address] [place] [address], [place], [address], 05/13/2024 13:16:53 05/13/19 25 05/13/2024 , obste tric, follo w-up No observ ation record ed. [email or web address] [address] [address], [place], [address], 05/13/2024 13:09:38 Result Notes None recorded. Problems Name Problem SNOMED Code Status Onset Date Resolution Date Notes Provider Name and Address Organization Details Recorded Time 29367859 Active 2023 Kiah Vicente [facility] 4 16:19:15 Past history of section 124756552 Active [facility] RAND HUITRON MD [address], [place], [address], [facility] 4 11:14:36 Body mass index 30+ - obesity 061111962 Active antental testing at 37wks Alexa mitchell [facility] 4 14:37:29 Body mass index 30+ - obesity 655600669 Active antental testing at 37wks Alexa Harrison stephen, [facility] 4 14:37:28 Problem Notes None recorded. Procedures Surgical History Date Name Laterality Status Provider Name and Address Organization Details Recorded Time 3 Control Implant Removal completed TAQUERIA Figueroa [address], [place], [address], [facility] 01/23/2023 16:06:08 1 Date of Last Pap Smear completed Kiah Vicente [facility] 01/19/2023 12:35:37 Caesarean Section completed Kiah Vicente [facility] 01/19/2023 12:35:54 Imaging Results Imaging Date Name Status LastModified by Organiz ation Details LastModified Time 05/13/2024 US, obstetric, follow-up completed [email or web address] [place] [address], [place], [address], 05/13/2024 13:16:53 05/13/2024 US, obstetric, follow-up completed [email or web address] [address] [facility], [place], [address], 05/13/2024 13:09:38 Procedure Notes None recorded. Medical [...] Not Available Not Available Not Available Acid Manager Property (omeprazole ) active Not Available Not Available Not Available Vitals Date Recorded Body height Body mass index (BMI) Body weight Systolic blood pressure Diastolic blood pressure Provider Name and Address Organization Details Last Updated DateTime 04/28/2024 160.02 cm 36.5 kg/m2 42766.03 g 113 mm[Hg] 69 mm[Hg] [facility] 4 09:32:32 Date Recorded Body height Body mass index (BMI) Body weight Systolic blood pressure Diastolic blood pressure Provider Name and Address Organization Details Last Updated DateTime 05/13/2024 160.02 cm 37.7 kg/m2 53716.17 g 103 mm[Hg] 69 mm[Hg] [facility] 5 10:09:43 Date Recorded Body height Body mass index (BMI) Body weight Systolic blood pressure Diastolic blood pressure Provider Name and Address Organization Details Last Updated DateTime 05/27/2024 160.02 cm 37.4 kg/m2 26560.99 g 96 mm[Hg] 66 mm[Hg] [facility] 5 09:40:05 Date Recorded Body height Body mass index (BMI) Body weight Systolic blood pressure Diastolic blood pressure Provider Name and Address Organization Details Last Updated DateTime 06/10/2024 160.02 cm 37.9 kg/m2 14827.77 g 104 mm[Hg] 63 mm[Hg] Sadia Avila [facility] 5 09:43:40 Social History Question Answer Notes LastModified by Organizat ion Details LastModified Time Tobacco Smoking Status Never Smoker Davina Abreu stephen, [facility] 11/27/2023 15:38:21 What Is Your Level Of Alcohol Consumption? Occasional Information not available 01/19/2023 How Many Years Have You Consumed Alcohol? 6 Information not available 01/19/2023 Are You Blind Or Do You Have Difficulty Seeing? No Information n ot available 01/19/2023 What Is Your Level Of Caffeine Consumption? None [email or web address] Information not available 01/22/2024 How Much Tobacco [...] Or The Highest Degree You Have Received? [id number] Information not available 01/19/2023 What Is Your [...] Anxious, Or Unable To Sleep At Night)? [id number] Information not available 01/19/2023 Do You Use [...] have difficulty walking or climbing stairs? No [email or web address] Information not available 01/22/2024 Are you able to walk? [email or web address] Information not available 01/19/2023 Are you able to care for yourself? Yes [email or web address] Information not available 01/22/2024 Do you have difficulty dressing or bathing? No [email or web address] Information not available 01/22/2024 What is your [...] SNOMED-CT Code Diagnosis ICD10 Code Diagnosis Note [id number] TAQUERIA Figueroa [place] [address] [address] 01/19/2023 12:14:27 01/19/2023 13:10:36 Breast lump 89583829 N63.0 u/s order given - encouraged to schedule Gynecologi c examination 27789824 Z01.419 Take Calcium with Vitamin D 1200mg [...] - nexplanon, inserted 05/03/21de sires removal to [facility] daily PNV starting now, schedule to return for removalno hx of abnormal papslast pap 06/2021 - normal per ptnext pap due testing declinedUT D with PCP for routine labsRTC for nexplanon removal [id number] TAQUERIA Figueroa [place] [address],[place] [address] 01/23/2023 14:57:34 01/23/2023 16:13:13 Removal of subcutaneous contraceptive 841799710 Z30.46 nexplanon removed (see procedure note)pt tolerated procedure wellencour aged daily PNVprecaut ions reviewed with pt [id number] Mindy Longoria [place] [address],[place] [address] 06/12/2023 12:20:25 06/12/2023 13:40:54 Uterine size for dates discrepancy 628002506 O26.841 Z3A.01 [id number] RAND HUITRON MD [place] [address],[place] [address] 06/20/2023 09:29:34 06/20/2023 14:17:50 Mixed anxiety and depressive disorder 016894753 F41.8 - discussed r/b/a of antidepres son therapy in and breastfeed ing, including small risk of TTN at time of delivery, low risk for defects with zoloft and prozac, encourage treating maternal mental health issues- would like to trial zoloft, will start at 25mg and titrate as needed Miscarriage 08780592 O03 .9 - quant hCG dropping as of 06/16- had heavier bleeding, passed blood/tiss ue yesterday, bleeding lightened today- no abdominal pain- plan for serial hCG to trend to negative- discussed waiting for next until hCG resolves- discussed management options of cytotec vs D&C if hCG plateaus [id number] Rosalia Love [place] [address],[place] [address] 11/27/2023 14:45:09 11/27/2023 15:27:02 [id number] RAND HUITRON MD [place] [address],[place] [address] 11/27/2023 14:45:45 12/01/2023 12:15:16 [id number] RAND HUITRON MD [place] [address],[place] [address] 12/05/2023 11:48:29 12/05/2023 12:40:01 Nausea and vomiting 83831969 R11.2 - no improvemen t with unisom/B6- will trial reglan test positive 450758808 Z32.01 1. Exam today within normal limits.2. [...] at next visit.7. Genetic screening: declines. [id number] Mindy Longoria [place] [address],[place] [address] 12/25/2023 11:55:14 12/25/2023 12:42:28 screening 367287293 Z36.82 [id number] RAND HUITRON MD [place] [address],[place] [address] 12/25/2023 11:55:37 12/26/2023 09:34:48 Routine care 186648590 Z34.90 Uterine sc ar from previous surgery affecting 77440805 O34.29 Gestation period, 12 weeks 66383172 Z3A.12 - continue PNV Mixed anxi ety and depressive disorder 869198212 F41.8 - prozac, mood stable [id number] RAND HUITRON MD [place] [address],[place] [address] 01/22/2024 09:45:31 01/22/2024 10:18:46 Nausea and vomiting 08111379 R11.2 - improved with zofran Past pregn jacinda history of section 980774171 Z98.890 Gestation period, 16 weeks 71841984 Z3A.16 [id number] [facility] [address],[place] [address] 02/19/2024 09:33:58 02/19/2024 11:51:49 screening 003104412 Z36.0 Z3A.20 [id number] RAND HUITRON MD [place] [address],[place] [address] 02/19/2024 09:34:56 02/19/2024 11:31:39 Nausea and vomiting 29497739 R11.2 - improved with zofran Past pregn jacinda history of section 953437183 Z98.890 Gestation period, 20 weeks 46330261 Z3A.20 [id number] RAND HUITRON MD [place] [address],[place] [address] 03/18/2024 09:54:18 03/19/2024 03:22:22 Body mass index 30+ - obesity 327541148 Z68.35 - testing at 37 weeks Past pregn jacinda history of section 837555775 Z98.890 - desires [facility] Gestation period, 24 weeks 835051340 Z3A.24 [id number] RAND HUITRON MD [place] [address],[place] [address] 04/15/2024 10:10:26 04/15/2024 11:04:20 Body mass index 30+ - obesity 721174547 Z68.35 - testing at 37 weeks Past pregn jacinda history of section 225821836 Z98.890 - desires [facility] Gestation period, 28 weeks 25795260 Z3A.28 [id number] RAND HUITRON MD [place] [address],[place] [address] 04/28/2024 09:25:43 04/28/2024 10:00:33 Uterine scar from previous surgery affecting 09806188 O34.29 Gestation period, 30 weeks 02742936 Z3A.30 [id number] Rosalia Love [place] [address],[place] [address] 05/13/2024 09:20:43 05/13/2024 10:10:46 Uterine size for dates discrepancy 123424443 O26.843 O09.293 Z3A.32 [id number] RAND HUITRON MD [place] [address],[place] [address] 05/13/2024 10:04:38 05/13/2024 10:43:13 Maternal obesity complicating , childbirth and the puerperium, antepartum 1122066074 07 O99.213 Uterine sc ar from previous surgery affecting 49948081 O34.29 Gestation period, 32 weeks 0207123 Z3A.32 [id number] RAND HUITRON MD [place] [address],[place] [address] 05/27/2024 09:33:44 05/27/2024 11:12:13 Uterine scar from previous surgery affecting 71289445 O34.29 - desires [facility] Gestation period, 34 weeks 99242850 Z3A.34 [id number] RAND HUITRON MD [place] [address],[place] [address] 06/10/2024 09:30:26 06/10/2024 11:49:16 Uterine scar from previous surgery affecting 60881933 O34.29 - desires [facility] Gestation period, 36 weeks 73939628 Z3A.36 Health Concerns Section Related Observation LastModified by Organization Detai ls LastModified Time None Recorded Concern Status LastModified by Organization Details LastModified Time None Recorded Advance Directives Directive None Recorded Payers Encounter Date Sequence Insurance Name Policy Number Policy Ingram Covered Member ID Ingram Member ID Guarantor Name 04/28/2024 1 [place] [id number] Ifeoma Marc [id number] Ifeoma Marc 05/13/2024 1 [place] [id number] Ifeoma Marc [id number] Ifeoma Marc 05/13/2024 1 [place] [id number] Ifeoma Marc [id number] Ifeoma Barbains 05/27/2024 1 [place] [id number] Ifeoma Marc [id number] Ifeoma Marc 06/10/2024 1 [place] [id number] Ifeoma Marc [id number] Ifeoma Marc OBGyn Episode Ob Episode Information Episode Created Date Number of Fetuses Patient Bloodtype Patient rh Status Prepregnancy Weight lbs Domestic Partner Domestic Partner Phone Father Name Mechanics Handyman Status 01/20/20 1 CLOSED Fetus Data First Name Last Name Admitted to NICU Weight (g) Sex Living Outcome Pediatric Complications Fetus ID Race Codes Race Delivery Type 2919.77 1704 Full Term [id number] Primary Chavez Calculation Initial Chavez Date Initial [...] Domestic Partner Domestic Partner Phone Father Name Mechanics Handyman Status 11/27/19 24 1 CLOSED Fetus Data First Name Last Name Admitted to NICU Weight (g) Sex Living Outcome Pediatric Complications Fetus ID Race Codes Race Delivery Type , Spontane ous 43317 Chavez Calculation Initial Chavez Date Initial Exam [...] Domestic Partner Domestic Partner Phone Father Name Mechanics Handyman Status 12/25/19 24 1 OPEN Fetus Data First Name Last Name Admitted to NICU Weight (g) Sex Living Outcome Pediatric Complications Fetus ID Race Codes Race Delivery Type [id number] Problems Problem Notes Problem Name Start Date End Date Resolution Snomed Code Not e Body mass index 30+ - obesity 280786784 antental testin g at 37wks Past history of section 903811165 [facility] Chavez Calculation Initial Chavez Date Initial Exam Date Initial Exam Provider Initial Ultrasound Date Last Menstrual Period Date Ultra Sound Weeks Gestation 07/07/2024 12/25/2023 11/27/2023 10/01/2023 8 Eighteen To Twenty Week Chavez Update Ultra Sound Date Fundal Height At Umbil Quickening Date Ultra Sound Latest Weeks Gestation Final Cahvez Confirmed By Final Chavez Confirmed Date Final Chavez Date Ultra Sound Latest Days Gestation 0 0 Pre- Flowsheet Flowsheet Date 12/25/2023 Weathers Score Blood Edema Fundus Height Fundus Units Glucose Ketones Leukocytes Nitrite Labor Signs Protein Cervic Dilation Cervic Effacement Cervic Station Type Weight in lbs Pre/Post Dialysis Refused Weight 202.136305802998 BP Diastolic BP Location Tested BP Systolic BP Type 68 111 Fetus Heart Rate Present Fetus Movement Comments Patient presents to [facility] care. thus far uncomplicated. Nausea improving, takng [...] Weight in lbs Pre/Post Dialysis Refused Weight 205.962454222614 BP Diastolic BP Location Tested BP Systolic [...] Weight in lbs Pre/Post Dialysis Refused Weight 207.371765382774 BP Diastolic BP Location Tested BP Systolic [...] Type Weight in lbs Pre/Post Dialysis Refused 208.044194978432 BP Diastolic BP Location Tested BP Systolic [...] Weight in lbs Pre/Post Dialysis Refused Weight 211.228288410360 BP Diastolic BP Location Tested BP Systolic [...] Weight in lbs Pre/Post Dialysis Refused Weight 206.593409535860 BP Diastolic BP Location Tested BP Systolic [...] Weight in lbs Pre/Post Dialysis Refused Weight 213.600196889427 BP Diastolic BP Location Tested BP Systolic [...] Weight in lbs Pre/Post Dialysis Refused Weight 211.742368105060 BP Diastolic BP Location Tested BP Systolic [...] Weight in lbs Pre/Post Dialysis Refused Weight 214.714970880273 BP Diastolic BP Location Tested BP Systolic [...]
--- OUTSIDE RECORDS SUMMARY | 2024-06-17 19:04 | XMS_ITS | Referral Summary ---
Author Organization [facility] [place] [facility] Address [address] [place] [address] Care Team Providers Care Rpg Developer Name Role Phone Ozzie Andrews Primary Care Provider [phone] Allergies No known active allergies Medications fexofenadine [...] understanding Assessment & Plan (07/04/2023 8:40 AM REPRODUCTION ORDER PROCESSOR): Images from the original note were not [...] 05/25/2021 Assessment & Plan (05/25/2021 9:26 AM REPRODUCTION ORDER PROCESSOR): Self-isolate 10 days from start of symptoms Increase fluid intake Report new or worsening symptoms Warning signs warranting immediate medical care: chest pain, trouble breathing, worsening shortness of breath Ear pressure, right 04/02/2020 Assessment & Plan (08/02/2021 8:32 AM CDT): resolved Assessment & Plan (04/02/2020 12:28 PM REPRODUCTION ORDER PROCESSOR): Due to symptoms and sinus congestion which [...] mapping Assessment & Plan (07/04/2023 8:41 AM REPRODUCTION ORDER PROCESSOR): Mole mapping performed skin care discussed Assessment & Plan (11/23/2021 7:48 AM CDT): Will call back to schedule shave BX right tricep due to irritation Assessment & Plan (06/21/2021 9:10 AM REPRODUCTION ORDER PROCESSOR): With scheduling mole mapping Routine general medical exam ination at a health care facility 10/23/2018 Assessment & Plan (07/04/2023 8:40 AM REPRODUCTION ORDER PROCESSOR): Healthcare maintenance updated Assessment & Plan (06/21/2021 9:10 AM REPRODUCTION ORDER PROCESSOR): Healthcare maintenance updated Body mass index (bmi) 38.0-38.9, adult 9 Lump of right breast 12/26/2017 Generalized anxiety disorder 01/05/2017 Assessment & Plan (08/06/2023 9:57 AM CDT): This is well controlled with no SI HI continue current meds follow-up six-month Assessment & Plan (07/04/2023 8:39 AM REPRODUCTION ORDER PROCESSOR): This is controlled current medications continue current meds follow-up routine there is no SI HI. Open door open Assessment & Plan (11/23/2021 7:52 AM CDT): Fair control, increasing prozac to 20, no SI/HI, f/u routine, MHC ordered Assessment & Plan (08/02/2021 8:32 AM CDT): Improved, CPM, refilled medications, f/u 6 months Assessment & Plan (06/21/2021 9:10 AM REPRODUCTION ORDER PROCESSOR): Images from the original note were not [...] is well controlled chronic condition continue current ycgj-day-wmtrvyr medication Assessment & Plan (08/02/2021 8:33 AM CDT): CPM Assessment & Plan (06/21/2021 9:09 AM REPRODUCTION ORDER PROCESSOR): This is well controlled with current medication [...] 07/09/2013 OPV 03/19/1996,01/16/1996 PPD TEST 10/20/2019, 9,10/22/2017,11/15 Sopogy Sars-Cov-2 Bivalent V accination (12+ YRS) 01/03/2024 [...] on file Legal Sex Female 7:09 PM REPRODUCTION ORDER PROCESSOR Gender Identity Female 04/02/2020 11:49 AM REPRODUCTION ORDER PROCESSOR Sexual Orientation Straight 04/02/2020 11 :49 AM REPRODUCTION ORDER PROCESSOR Last Filed Vital Signs Vital Sign Reading [...] Plan of Treatment Not on file Insurance [employer] [place] [employer] [place] Care Teams Rpg Developer Relationship Specialty Start Date End Date Ozzie Andrews PA PCP - General Family Medicine 10/28/18
--- OUTSIDE RECORDS SUMMARY | 2024-06-17 19:04 | XMS_ITS | Encounter Summary ---
Author Organization [facility] Facility Care Team Providers Care Development Representative Name Role Phone Ozzie Andrews Primary Care Provider [phone] Encounter Details Date Type Department Care Team (Latest Contact Info) Description 09/02/2015 Orders Only [facility] Provider, MD Oziel [address] [place] [address] Social History Tobacco Use Types Packs/Day Years Used Date Smoking Tobacco: Never Assessed Comments Unknown Sex and Gender Information Value Date Recorded Sex Assigned at Not on file Legal Sex Female 7:09 PM COUNTER INTELLIGENCE Gender Identity Female 04/02/2020 11:49 AM COUNTER INTELLIGENCE Sexual Orientation Straight 04/02/2020 11 :49 AM COUNTER INTELLIGENCE documented as of this encounter Plan of [...] COVID: Suspected 05/25/2021 05/25/2021 05/25/2021 7:58 PM COUNTER INTELLIGENCE documented as of this encounter Care Teams Development Representative Relationship Specialty Start Date End Date Ozzie Andrews PA PCP - General Family Medicine 10/28/18 documented as of this encounter
--- OUTSIDE RECORDS SUMMARY | 2024-06-17 19:04 | XMS_ITS | Encounter Summary ---
Author Organization [facility] Address [address] [place] [address] Care Team Providers Care Maintenance And Utilities Supervisor Name Role Phone Ozzie Andrews Primary Care Provider [phone] Encounter Details Date Type Department Care Team (Late st Contact Info) Description 06/22/2023 Orders Only [facility] [facility] [address] [place] [address] Scanning, Provider Social History Tobacco Use [...] on file Legal Sex Female 7:09 PM OFFICE COORDINATOR RECEPTIONIST Gender Identity Female 04/02/2020 11:49 AM OFFICE COORDINATOR RECEPTIONIST Sexual Orientation Straight 04/02/2020 11 :49 AM OFFICE COORDINATOR RECEPTIONIST documented as of this encounter Plan of Treatment Not on file documented as of this encounter Procedures Procedure Name Priority Date/Time Associated Diagnosis Comments SCAN - LABS 06/22/2023 documented in this encounter Results * SCAN - LABS (06/22/2023) us Provider Scanning Final Result documented in this encounter Visit Diagnoses Not on filedocumented in this encounter Care Teams Maintenance And Utilities Supervisor Relationship Specialty Start Date End Date Ozzie Andrews PA PCP - General Family Medicine 10/28/18 documented as of this encounter
--- OUTSIDE RECORDS SUMMARY | 2024-06-17 19:04 | XMS_ITS | Encounter Summary ---
Author Organization [facility] Facility Care Team Providers Care Senior Trainer Name Role Phone Ozzie Andrews Primary Care Provider [phone] Encounter Details Date Type Department Care Team (Latest Contact Info) Description 09/18/2017 Orders Only [facility] Provider, MD Oziel [address] [place] [address] Social History Tobacco Use Types Packs/Day Years Used Date Smoking Tobacco: Never Assessed Comments Unknown Sex and Gender Information Value Date Recorded Sex Assigned at Not on file Legal Sex Female 7:09 PM SYSTEMS INTEGRATION MANAGER Gender Identity Female 04/02/2020 11:49 AM SYSTEMS INTEGRATION MANAGER Sexual Orientation Straight 04/02/2020 11 :49 AM SYSTEMS INTEGRATION MANAGER documented as of this encounter Plan of [...] COVID: Suspected 05/25/2021 05/25/2021 05/25/2021 7:58 PM SYSTEMS INTEGRATION MANAGER documented as of this encounter Care Teams Senior Trainer Relationship Specialty Start Date End Date Ozzie Andrews PA PCP - General Family Medicine 10/28/18 documented as of this encounter
--- OUTSIDE RECORDS SUMMARY | 2024-06-17 19:04 | XMS_ITS | Encounter Summary ---
Author Organization [facility] Address [address] [place] [address] Care Team Providers Care Skip Loader Name Role Phone Ozzie Andrews Primary Care Provider [phone] Encounter Details Date Type Department Care Team (Late st Contact Info) Description 06/29/2023 Orders Only [facility] Health Information Management [address] [place] [address] Scanning, Provider Social History Tobacco Use [...] on file Legal Sex Female 7:09 PM FRAME CATCHER Gender Identity Female 04/02/2020 11:49 AM FRAME CATCHER Sexual Orientation Straight 04/02/2020 11 :49 AM FRAME CATCHER documented as of this encounter Plan of Treatment Not on file documented as of this encounter Procedures Procedure Name Priority Date/Time Associated Diagnosis Comments SCAN - LABS 06/29/2023 documented in this encounter Results * SCAN - LABS (06/29/2023) us Provider Scanning Final Result documented in this encounter Visit Diagnoses Not on filedocumented in this encounter Care Teams Skip Loader Relationship Specialty Start Date End Date Ozzie Andrews PA PCP - General Family Medicine 10/28/18 documented as of this encounter
--- OUTSIDE RECORDS SUMMARY | 2024-06-17 19:04 | XMS_ITS | Clinical Summary ---
Author Organization [facility] [place] [facility] Address [address] [place] [address] Care Team Providers Care Mother Superior Name Role Phone Ozzie Andrews Primary Care Provider [phone] Allergies No known active allergies Medications fexofenadine [...] understanding Assessment & Plan (07/04/2023 8:40 AM IBM WEBSPHERE COMMERCE CONSULTANT): Images from the original note were [...] 05/25/2021 Assessment & Plan (05/25/2021 9:26 AM IBM WEBSPHERE COMMERCE CONSULTANT): Self-isolate 10 days from start of symptoms Increase fluid intake Report new or worsening symptoms Warning signs warranting immediate medical care: chest pain, trouble breathing, worsening shortness of breath Ear pressure, right 04/02/2020 Assessment & Plan (08/02/2021 8:32 AM CDT): resolved Assessment & Plan (04/02/2020 12:28 PM IBM WEBSPHERE COMMERCE CONSULTANT): Due to symptoms and sinus congestion [...] mapping Assessment & Plan (07/04/2023 8:41 AM IBM WEBSPHERE COMMERCE CONSULTANT): Mole mapping performed skin care discussed Assessment & Plan (11/23/2021 7:48 AM CDT): Will call back to schedule shave BX right tricep due to irritation Assessment & Plan (06/21/2021 9:10 AM IBM WEBSPHERE COMMERCE CONSULTANT): With scheduling mole mapping Routine general medical exam ination at a health care facility 10/23/2018 Assessment & Plan (07/04/2023 8:40 AM IBM WEBSPHERE COMMERCE CONSULTANT): Healthcare maintenance updated Assessment & Plan (06/21/2021 9:10 AM IBM WEBSPHERE COMMERCE CONSULTANT): Healthcare maintenance updated Body mass index (bmi) 38.0-38.9, adult 9 Lump of right breast 12/26/2017 Generalized anxiety disorder 01/05/2017 Assessment & Plan (08/06/2023 9:57 AM CDT): This is well controlled with no SI HI continue current meds follow-up six-month Assessment & Plan (07/04/2023 8:39 AM IBM WEBSPHERE COMMERCE CONSULTANT): This is controlled current medications continue current meds follow-up routine there is no SI HI. Open door open Assessment & Plan (11/23/2021 7:52 AM CDT): Fair control, increasing prozac to 20, no SI/HI, f/u routine, MHC ordered Assessment & Plan (08/02/2021 8:32 AM CDT): Improved, CPM, refilled medications, f/u 6 months Assessment & Plan (06/21/2021 9:10 AM IBM WEBSPHERE COMMERCE CONSULTANT): Images from the original note were [...] is well controlled chronic condition continue current ruov-cyw-koihgbg medication Assessment & Plan (08/02/2021 8:33 AM CDT): CPM Assessment & Plan (06/21/2021 9:09 AM IBM WEBSPHERE COMMERCE CONSULTANT): This is well controlled with current [...] 07/09/2013 OPV 03/19/1996,01/16/1996 PPD TEST 10/20/2019, 9,10/22/2017,11/15 Tastemaker Sars-Cov-2 Bivalent V accination (12+ YRS) 01/03/2024 [...] on file Legal Sex Female 7:09 PM IBM WEBSPHERE COMMERCE CONSULTANT Gender Identity Female 04/02/2020 11:49 AM IBM WEBSPHERE COMMERCE CONSULTANT Sexual Orientation Straight 04/02/2020 11 :49 AM IBM WEBSPHERE COMMERCE CONSULTANT Obstetrics History Last Filed Vital Signs Vital [...] complete this topic Varicella Vaccines Discontinued Insurance [employer] [place] [employer] [place] Care Teams Mother Superior Relationship Specialty Start Date End Date Ozzie Adnrews PA PCP - General Family Medicine 10/28/18
--- OUTSIDE RECORDS SUMMARY | 2024-06-17 19:04 | XMS_ITS | Data Portability ---
Author Organization [facility] Address [address] [place] [address] Assessment No assessment recorded. Plan of Treatment Reminders Order Date Submit Date Provider Last Modified By Organization Details Last Modified Time Details Appointments ANY 30 2024 08:15A DAVE Walker Not available Not available Not available Lab None recorded. Referral None recorded. Procedures None recorded. Surgeries None recorded. Imaging None recorded. Medication Orders albuterol sulfate HFA 90 mcg/actua tion aerosol inhaler 2023 [id number], [address], [place], [place], [id number], 04/16/2024 08:51:06 fluoxetin e 20 mg capsule [address] [facility] #[id number], [address], [place], [place], [id number], 04/16/2024 08:51:07 Patient TargetsNo targets recorded. Patient Instructions Encounter Date Encounter Id Patient Instructions Last Modified By Organization Details Last Modified Time 04/16/2024 [id number] A healthy lifestyle: care instructions [email or web address] Not available 04/16/2024 08:42:18 Reason for Referral None Reported. Problems Name Problem SNOMED Code Status Onset Date Resolution Date Notes Provider Name and Address Organization Details Recorded Time Adult health examination Active 2023 Jabier Jemison [place] JOSE mitchell 15:41:43 Gastroesophage al reflux disease without esophagitis 568338132 Active 2023 [facility] [place] JOSE mitchell SIBandar 4 15:41:44 Allergic rhinitis 47247245 Active 2023 BENEDICTO Sinha [place] - [facility] [...] Updated DateTime 4 160.02 cm 37.4 kg/m2 62080.3 4 g 97 % 97 % 88 [...] Time Influenza, MDCK, quadrivalent, PF 9 completed [facility], [place] [facility] 04/16/2024 08:32:45 Influenza, MDCK, quadrivalent, PF 2 completed [facility], [place] [facility] 04/16/2024 08:32:45 Influenza, live, trivalent, intranasal 3 completed [facility], [place] [facility] 04/16/2024 08:32:45 COVID-19, mRNA, LNP-S, PF, 100 mcg/0.5mL dose or 50 mcg/0.25mL dose 1 [facility], [place] [facility] 04/16/2024 08:32:45 COVID-19, mRNA, LNP-S, PF, 100 mcg/0.5mL dose or 50 mcg/0.25mL dose 1 [facility], [place] [facility] 04/16/2024 08:32:45 COVID-19, mRNA, LNP-S, PF, 100 mcg/0.5mL dose or 50 mcg/0.25mL dose 1 [facility], [place] [facility] 04/16/2024 08:32:45 COVID-19, mRNA, LNP-S, bivalent, PF, 50 mcg/0.5 mL or 25mcg/0.25 mL dose 2 completed [facility], [place] [facility] 04/16/2024 08:32:45 [...] 04/16/2024 08:32:45 OPV 6 completed Jabier Deng [place], [place] [facility] 04/16/2024 08:32:45 DTP-Hib 6 completed Jabier Deng [place] [facility] 04/16/2024 08:32:45 DTP-Hib 6 completed Jabier Deng [place], [place] [facility] 04/16/2024 08:32:45 Influenza, split virus, trivalent, PF 4 completed Jabier Deng [place], [place] [facility] 04/16/2024 08:32:45 Hep B, adolescent or pediatric 6 completed Jabier Deng [place], [place] [facility] 04/16/2024 08:32:45 Hep B, adolescent or pediatric 6 completed Jabier Deng [place] [facility] 04/16/2024 08:32:45 Hep B, adolescent or pediatric 6 completed Jabier Deng [place] [facility] 04/16/2024 08:32:45 meningococcal MCV4P 4 completed Jabier Deng [place], [place] [facility] 04/16/2024 08:32:45 Influenza, split virus, quadrivalent, PF 8 completed Jabier Deng [place], [place] [facility] 04/16/2024 08:32:45 Influenza, split virus, quadrivalent, PF 1 completed [place], [place] null, [place] - [facility] 04/16/2024 08:32:45 Influenza, split virus, quadrivalent, PF 3 completed [place], [place] null, [place] - [facility] 04/16/2024 08:32:45 Influenza, split virus, quadrivalent, PF 0 completed [place], [place] null, [place] - [facility] 04/16/2024 08:32:45 Past Encounters Encounter ID Performer Location Encounter Start Date Encounter Closed Date Diagnosis/Indication Diagnosis SNOMED-CT Code Diagnosis ICD10 Code Diagnosis Note [id number] DAVE Joya [facility] [address] [facility] [address] [place] [address] 04/16/2024 08:27:55 04/22/2024 08:44:10 Adult health examination 637569403 Z00.00 Healthy diet and exercise, HCM as discussed Gastroesop hageal reflux disease without esophagitis 739329729 K21.9 1 .Avoid lying flat 3 to [...] and exercise. 10. Stop smoking. Allergic rhinitis 589004 04 J30.9 This is a stable chronic condition controlled with p.r.n. 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 cleared by OBGYN, CPM - The [...] can also call the suicide hotline at [phone]- [phone] Reactive a irway disease [id number] 06 J45.909 controlled with prn meds Health Concerns Section Related Observation LastModified by Organization Detai ls LastModified Time None Recorded Concern Status LastModified by Organization Details LastModified Time None Recorded Advance Directives Directive None Recorded Payers Encounter Date Sequence Insurance Name Policy Number Policy Ingram Covered Member ID Ingram Member ID Guarantor Name 04/16/2024 1 [place] [id number] Ifeoma Marc [id number] Ifeoma Marc Notes Date Note Type [...] on prozac DAVE Joya Attn: Accounting,[address] [facility], [place], [address], [facility] - [facility] 04/16/2024 09:06:27 OBGyn Episode No OBEpisode recorded.
--- OUTSIDE RECORDS SUMMARY | 2024-06-17 19:04 | XMS_ITS | Encounter Summary ---
Author Organization [facility] Facility Care Team Providers Care Information Systems Coordinator Name Role Phone Ozzie Andrews Primary Care Provider [phone] Encounter Details Date Type Department Care Team (Latest Contact Info) Description 09/27/2015 Orders Only [facility] Provider, MD Oziel [address] [place] [address] Social History Tobacco Use Types Packs/Day Years Used Date Smoking Tobacco: Never Assessed Comments Unknown Sex and Gender Information Value Date Recorded Sex Assigned at Not on file Legal Sex Female 7:09 PM RECORDER HELPER GRAVITY PROSPECTING Gender Identity Female 04/02/2020 11:49 AM RECORDER HELPER GRAVITY PROSPECTING Sexual Orientation Straight 04/02/2020 11 :49 AM RECORDER HELPER GRAVITY PROSPECTING documented as of this encounter Plan of [...] COVID: Suspected 05/25/2021 05/25/2021 05/25/2021 7:58 PM RECORDER HELPER GRAVITY PROSPECTING documented as of this encounter Care Teams Information Systems Coordinator Relationship Specialty Start Date End Date Ozzie Andrews PA PCP - General Family Medicine 10/28/18 documented as of this encounter
[2024-06-17 19:33] LABS: Add Urine Microscopic? NO; Appearance Urine Clear (Clear); Bilirubin Urine Negative (Negative); Blood Urine Negative (Negative); Color Urine Yellow (Yellow); Glucose Urine UA Negative (Negative); Ketones Urine Negative (Negative); Leukocyte Esterase Ur Negative LEU/UL (Negative); Nitrate Urine Negative (Negative); Protein Urine Negative (Negative); Specific Grav Ur 1.004 (1.001-1.035); Urobilinogen Urine 0.2 mg/dL (<2.0); pH Urine 6.5 (5.0-9.0)
[2024-06-17 19:37] LABS: Basophils Percent Auto 0.2 % (0.2-1.2); Eosinophils Percent Auto 0.3 % (0-4.4); Hematocrit 36.4 % (37.0-47.0); Hemoglobin 13.1 g/dL (12.0-15.0); Immature Granulocyte Absolute 0.07 K/mm3 (0.00-0.031); Immature Granulocyte Percent A 0.7 % (0-0.5); Lymphocytes Absolute Auto 2.06 K/mm3 (0.9-3.2); Lymphocytes Percent Auto 19.3 % (18.3-44.2); Mean Corpuscular Hemoglobin 30.2 pg (26-34); Mean Corpuscular Volume 83.9 fl (80-100); Monocytes Absolute Auto 0.5 K/mm3 (0.1-0.6); Monocytes Percent Auto 4.2 % (2.6-8.5); Neutrophils Percent Auto 75.3 % (45.5-73.1); Platelet Count Result 268 k/mm3 (150-375); Red Blood Count 4.34 M/mm3 (4.2-5.4); Red Cell Distribution Width 12.4 % (11.5-14.5); White Blood Count 10.7 K/mm3 (4.5-10.0)
[2024-06-17 19:46] LABS: Alanine Aminotransferase 26 U/L (6-35); Albumin Level 3.7 g/dL (3.5-5.1); Alkaline Phosphatase 258 U/L (38-126); Anion Gap 13 mmol/L (4-12); Aspartate Amino Transferase 26 U/L (14-36); Bilirubin,Total 0.5 mg/dL (0.2-1.3); Blood Urea Nitrogen 5 mg/dL (7-17); Calcium 8.9 mg/dL (8.4-10.2); Carbon Dioxide 17 mmol/L (22-30); Chloride 104 mmol/L (98-107); Estimated CRCL calculation 131 ml/min; Estimated Glomerular Filt Rate > 60; Glucose 91 mg/dL (65-110); Potassium 3.7 mmol/L (3.4-5.0); Sodium 134 mmol/L (137-145); Uric Acid 6.9 mg/dL (2.5-7.5)
[2024-06-17 20:29] LABS: Creatinine Urine 39.5 mg/dL; Total Protein Urine Random 23 mg/dL; Ur Ttl Prot Creatinine Ratio 0.58 mg/mg (0-0.20)
== END 2024-06-17 20:40 | disposition home or self-care (01) ==
LOC: ANHOBOP 19:02 → ANHOBPP 19:04
PROVIDERS: PCP Physician Assistant; Visit Provider Obstetrics & Gynecology
DX: O13.9 Gestational [pregnancy-induced] hypertension without significant proteinuria, unspecified trimester (principal)
CPT/HCPCS: 36415; 80053; 81003; 82570; 84156; 84550; 85025; 99199

== ENCOUNTER 2024-07-01 05:27 | Inpatient (IN) | payer BC, SELFPAY ==
[2024-07-01] VITALS (45 sets, daily range): BP systolic 101–133; BP diastolic 55–93; PULSE 50–123; RESP 12–18; TEMP 36.2–36.9; O2SAT 96–100; BMI 36.8
--- OUTSIDE RECORDS SUMMARY | 2024-07-01 05:31 | XMS_ITS | Encounter Summary ---
Author Organization [facility] Facility Care Team Providers Care Measurement Coordinator Name Role Phone Ozzie Andrews Primary Care Provider [phone] Encounter Details Date Type Department Care Team (Latest Contact Info) Description 09/02/2015 Orders Only [facility] Provider, MD Oziel [address] [place] [address] Social History Tobacco Use Types Packs/Day Years Used Date Smoking Tobacco: Never Assessed Comments Unknown Sex and Gender Information Value Date Recorded Sex Assigned at Not on file Legal Sex Female 7:09 PM SANDWICH MAKER Gender Identity Female 04/02/2020 11:49 AM SANDWICH MAKER Sexual Orientation Straight 04/02/2020 11 :49 AM SANDWICH MAKER documented as of this encounter Plan of [...] COVID: Suspected 05/25/2021 05/25/2021 05/25/2021 7:58 PM SANDWICH MAKER documented as of this encounter Care Teams Measurement Coordinator Relationship Specialty Start Date End Date Ozzie Andrews PA PCP - General Family Medicine 10/28/18 documented as of this encounter
--- OUTSIDE RECORDS SUMMARY | 2024-07-01 05:31 | XMS_ITS | Referral Summary ---
Author Organization [facility] Address [address] [place] [address] Care Team Providers Care Fire Tower Keeper Name Role Phone Ozzie Andrews Primary Care Provider [phone] Allergies No known active allergies Medications fexofenadine [...] understanding Assessment & Plan (07/04/2023 8:40 AM MILIEU COORDINATOR): Images from the original note were not [...] 05/25/2021 Assessment & Plan (05/25/2021 9:26 AM MILIEU COORDINATOR): Self-isolate 10 days from start of symptoms Increase fluid intake Report new or worsening symptoms Warning signs warranting immediate medical care: chest pain, trouble breathing, worsening shortness of breath Ear pressure, right 04/02/2020 Assessment & Plan (08/02/2021 8:32 AM CDT): resolved Assessment & Plan (04/02/2020 12:28 PM MILIEU COORDINATOR): Due to symptoms and sinus congestion which [...] mapping Assessment & Plan (07/04/2023 8:41 AM MILIEU COORDINATOR): Mole mapping performed skin care discussed Assessment & Plan (11/23/2021 7:48 AM CDT): Will call back to schedule shave BX right tricep due to irritation Assessment & Plan (06/21/2021 9:10 AM MILIEU COORDINATOR): With scheduling mole mapping Routine general medical exam ination at a health care facility 10/23/2018 Assessment & Plan (07/04/2023 8:40 AM MILIEU COORDINATOR): Healthcare maintenance updated Assessment & Plan (06/21/2021 9:10 AM MILIEU COORDINATOR): Healthcare maintenance updated Body mass index (bmi) 38.0-38.9, adult 9 Lump of right breast 12/26/2017 Generalized anxiety disorder 01/05/2017 Assessment & Plan (08/06/2023 9:57 AM CDT): This is well controlled with no SI HI continue current meds follow-up six-month Assessment & Plan (07/04/2023 8:39 AM MILIEU COORDINATOR): This is controlled current medications continue current meds follow-up routine there is no SI HI. Open door open Assessment & Plan (11/23/2021 7:52 AM CDT): Fair control, increasing prozac to 20, no SI/HI, f/u routine, MHC ordered Assessment & Plan (08/02/2021 8:32 AM CDT): Improved, CPM, refilled medications, f/u 6 months Assessment & Plan (06/21/2021 9:10 AM MILIEU COORDINATOR): Images from the original note were not [...] is well controlled chronic condition continue current euvk-ndt-offhfxe medication Assessment & Plan (08/02/2021 8:33 AM CDT): CPM Assessment & Plan (06/21/2021 9:09 AM MILIEU COORDINATOR): This is well controlled with current medication Resolved Problems Problem Noted Date Diagnosed Date Resolved Date Upper respiratory infection, acute 08/28/2016 10/29/2019 Immunizations Immunization Administration Dates Next Due DTP / HiB 03/19/1996,01/16/1996 Hep B, Adolescent or Pediatric 01/16/1996,1995,1995 Influenza LAIV (Nasal) 02/25/2013 Influenza, Quadrivalent, Ambika l Culture-based MDCK, Preservative Free, Antibiotic Free, Intramuscular 02/22/2022,12/21/2018 Influenza, Quadrivalent, Spl it, Preservative Free, Intramuscular 01/24/2023,01/23/2021,02/09/2020,12/14 Influenza, Trivalent, Preser vative Free, Intramuscular 01/21/2024 Influenza, Unspecified 01/29/2023,01/23/2021 Meningococcal MCV4P (Menactra) 07/09/2013 OPV 03/19/1996,01/16/1996 PPD TEST 10/20/2019, 9,10/22/2017,11/15 Ebid[employer]co[employer]zw Sars-Cov-2 Bivalent V accination (12+ YRS) 01/03/2024 [...] on file Legal Sex Female 7:09 PM MILIEU COORDINATOR Gender Identity Female 04/02/2020 11:49 AM MILIEU COORDINATOR Sexual Orientation Straight 04/02/2020 11 :49 AM MILIEU COORDINATOR Last Filed Vital Signs Vital Sign Reading [...] Plan of Treatment Not on file Insurance [place] Care Teams Fire Tower Keeper Relationship Specialty Start Date End Date Ozzie Andrews PA PCP - General Family Medicine 10/28/18
--- OUTSIDE RECORDS SUMMARY | 2024-07-01 05:31 | XMS_ITS | Encounter Summary ---
Author Organization [facility] Healthcare Address [address] [place] [address] Care Team Providers Care Umbrella Finisher Name Role Phone Ozzie Andrews Primary Care Provider [phone] Encounter Details Date Type Department Care Team (Late st Contact Info) Description 06/29/2023 Orders Only [facility] [place] Health Information Management [address] [place] [id number] Scanning, Provider Social History Tobacco Use [...] on file Legal Sex Female 7:09 PM PRICE ECONOMIST Gender Identity Female 04/02/2020 11:49 AM PRICE ECONOMIST Sexual Orientation Straight 04/02/2020 11 :49 AM PRICE ECONOMIST documented as of this encounter Plan of Treatment Not on file documented as of this encounter Procedures Procedure Name Priority Date/Time Associated Diagnosis Comments SCAN - LABS 06/29/2023 documented in this encounter Results * SCAN - LABS (06/29/2023) us Provider Scanning Final Result documented in this encounter Visit Diagnoses Not on filedocumented in this encounter Care Teams Umbrella Finisher Relationship Specialty Start Date End Date Ozzie Andrews PA PCP - General Family Medicine 10/28/18 documented as of this encounter
--- OUTSIDE RECORDS SUMMARY | 2024-07-01 05:31 | XMS_ITS | Data Portability ---
Author Organization [facility] Address [address] [place] [address] Care Team Providers Care Equal Opportunity Counselor Name Role Phone ERMELINDA SALDANA Primary Care Provider Assessment No assessment recorded. Plan of Treatment Reminders Order Date Submit Date Provider Last Modified By Organization Details Last Modified Time Details Appointments SURG CSection 2024 07:30A Anirudh HUITRON MD Not available Not available Not available SURG POST OP 2024 09:15A Anirudh HUITRON MD Not available Not available Not available POST 2024 10:00A Anirudh HUITRON MD Not available Not available Not available Lab None recorded. Referral None recorded. Procedures None recorded. Surgeries None recorded. Imaging non-stres s test 2024 025 [email or web address] [address], [address], [place], [address], 06/25/2024 05:30:47 US, obstetric , biophysic al profile + non-stres s test 2024 025 [email or web address] [place], [address], [place], [address], 06/24/2024 12:54:30 US, obstetric , biophysic al profile + non-stres s test 2024 025 [email or web address] [place], [address], [place], [address], 06/18/2024 21:43:51 US, obstetric , follow-up 2024 025 [email or web address] [place], [address], [address], [place], [address], 06/18/2024 21:43:51 non-stres s test 2024 025 [place], [address], [place], [address], 06/20/2024 04:51:31 Medication Orders None recorded. Patient TargetsNo targets recorded. Patient InstructionsNo instructions recorded. Reason for Referral None Reported. Results Created Date Observation Date Name Description Value Unit Range Abnormal Flag Note LastModifiedBy Organization Detail LastModifiedTime 06/10/1906/10/2024 CULTU RE: GROUP B STREP SCREE N, REFLE X SUSCE PTIBI LITY result report SEE RESULT S BELOW Test: Cultu re: Group B Strep , Refle x Susce ptibi lity ([facility] ) Speci men Sourc e: Vagin a/Rec anil Speci men Type: Vagin al/Re ctal Speci men Date: 0941 Resul t Date: 025 1416 Resul t Statu s: Final resul t Abnor mal: No Resul ting Lab: [facility] [address] [facility] [address] Tel: CULTU RE ----- ----- ----- --- No Group B strep isola danielle at 2 days (tristan ctive broth enhan cemen t) Not Available [facility] (Lab) [address], [place], [address], 06/13/2024 15:19:46 06/18/1906/18/2024 US, obste tric, bioph ysica l profi le + non-s tress test No observ ation record ed. [email or web address] [address], [place], [address], 06/18/2024 12:51:59 06/18/19 25 06/18/2024 US, obste tric, follo w-up No observ ation record ed. [email or web address] [place] [address], [place], [address], 06/18/2024 12:52:10 06/18/19 25 06/18/2024 US, obste tric, follo w-up No observ ation record ed. [email or web address] [address], [place], [address], 06/20/2024 15:00:47 06/18/19 25 06/18/2024 non-s tress test No observ ation record ed. [email or web address] [place] [address], [place], [address], 06/18/2024 17:52:20 06/19/19 non-s tress test No observ ation record ed. [email or web address] [place] [address], [place], [address], 06/26/2024 14:22:19 06/24/19 25 06/24/2024 US, pili martinez, bioph ysica l profi le + non-s tress test No observ ation record ed. [email or web address] [place] [address], [place], [address], 06/24/2024 12:55:47 06/24/19 25 06/24/2024 US, obste tric, follo w-up No observ ation record ed. [email or web address] [address], [place], [address], 06/24/2024 14:54:02 06/24/19 25 06/24/2024 non-s tress test No observ ation record ed. [email or web address] [place] [address], [place], [address], 06/24/2024 11:09:58 Result Notes None recorded. Problems Name Problem SNOMED Code Status Onset Date Resolution Date Notes Provider Name and Address Organization Details Recorded Time 82367504 Active 2023 [facility] 4 16:19:15 Past history of section 906000807 Active [facility] RAND HUITRON MD [address], [place], [address], [facility] 4 11:14:36 Body mass index 30+ - obesity 973184425 Active antental testing at 37wks [facility] 4 14:37:29 Body mass index 30+ - obesity 362567509 Active antental testing at 37wks [facility] 4 14:37:28 Problem Notes None recorded. Procedures Surgical History Date Name Laterality Status Provider Name and Address Organization Details Recorded Time 3 Control Implant Removal completed TAQUERIA Figueroa [address], [place], [address], [facility] 01/23/2023 16:06:08 Date of Last Pap Smear completed [facility] 01/19/2023 12:35:37 Caesarean Section completed [facility] 01/19/2023 12:35:54 Imaging Results Imaging Date Name Status LastModified by Organiz ation Details LastModified Time 06/18/2024 US, obstetric, biophysical profile + non-stress test completed [email or web address] [place] [address], [place], [address], 06/18/2024 12:51:59 06/18/2024 US, obstetric, follow-up completed [email or web address] [place] [address], [place], [address], 06/18/2024 12:52:10 06/18/2024 US, obstetric, follow-up completed [email or web address] [address], [place], [address], 06/20/2024 15:00:47 06/18/2024 non-stress test active [email or web address] [place] [address], [place], [address], 06/18/2024 17:52:20 06/19/2024 non-stress test completed [email or web address] [place] [address], [place], [address], 06/26/2024 14:22:19 06/24/2024 US, obstetric, biophysical profile + non-stress test completed [email or web address] [place] [address], [place], [address], 06/24/2024 12:55:47 06/24/2024 US, obstetric, follow-up completed [email or web address] [address], [place], [address], 06/24/2024 14:54:02 06/24/2024 non-stress test completed [email or web address] [place] [address], [place], [address], 06/24/2024 11:09:58 Procedure Notes None recorded. Medical Equipment None [...] Not Available Not Available Not Available Acid Center Director Lead Teacher (omeprazole ) active Not Available Not Available Not Available Vitals Date Recorded Body weight Body height Systolic blood pressure Diastolic blood pressure Provider Name and Address Organization Details Last Updated DateTime 06/18/2024 55739.843 48 g 160.02 cm 121 mm[Hg] 86 mm[Hg] Connie [facility] 06/18/2024 12:12:07 Date Recorded Body weight Systolic blood pressure Diastolic blood pressure Provider Name and Address Organization Details Last Updated DateTime 06/24/2024 52272.5824 4 g 123 mm[Hg] 85 mm[Hg] Connie [facility] 06/24/2024 10:38:49 Social History Question Answer Notes LastModified by Organizat ion Details LastModified Time Tobacco Smoking Status Never Smoker Davina Abreu [facility] 11/27/2023 15:38:21 What Is Your Level Of Alcohol Consumption? Occasional Information not available 01/19/2023 How Many Years Have You Consumed Alcohol? 6 Information not available 01/19/2023 Are You Blind Or Do You Have Difficulty Seeing? No Information n ot available 01/19/2023 What Is Your Level Of Caffeine Consumption? None [email or web address] Information not available 01/22/2024 How Much Tobacco [...] Or The Highest Degree You Have Received? FY71728-7 Information not available 01/19/2023 What Is Your [...] Anxious, Or Unable To Sleep At Night)? DD1253-6 Information not available 01/19/2023 Do You Use [...] you able to care for yourself? Yes [email or web address] Information not available 01/22/2024 Do you have difficulty dressing or bathing? No Information not available 01/22/2024 What is your [...] (Food, seasonal, environmental ) N Other N Drug/Latex Allergies/Reactions N Breast Cancer N Blood Transfusion N Lung Disease N Dermatologic Disorders N Defects or Inherited Disease N Breast Problem N Gestational Diabetes N Hematologic disorders N Anesthesia Complications N History of STI N Deep Vein Thrombosis N Polycystic ovary syndrome N Anxiety Disorder N Autoimmune disease N Arthritis N Polyps N Infertility N Acid Reflux (GERD) N History of abnormal pap N Cancer N Varicosities N Stroke N Neurologic/Epilepsy N Endometriosis N High Cholesterol N Fibromyalgia N Headaches N Kidney Disease N Heart Problems N Thyroid Problems N Kidney or Bladder Problems N GI Problems N Eating Disorder [...] SNOMED-CT Code Diagnosis ICD10 Code Diagnosis Note [id number] TAQUERIA Figueroa [place] [address] [address] 01/19/2023 12:14:27 01/19/2023 13:10:36 Breast lump 22298045 N63.0 u/s order given - encouraged to schedule Gynecologi c examination 42214157 Z01.419 Take Calcium with Vitamin D 1200mg [...] - nexplanon, inserted 05/03/21de sires removal to [facility] ged daily PNV starting now, schedule to return for removalno hx of abnormal papslast pap 06/2021 - normal per ptnext pap due testing declinedUT D with PCP for routine labsRTC for nexplanon removal [id number] TAQUERIA Figueroa [place] [address],[place] [address] 01/23/2023 14:57:34 01/23/2023 16:13:13 Removal of subcutaneous contraceptive 147499106 Z30.46 nexplanon removed (see procedure note)pt tolerated procedure wellencour aged daily PNVprecaut ions reviewed with pt [id number] Mindy Longoria [place] [address],[place] [address] 06/12/2023 12:20:25 06/12/2023 13:40:54 Uterine size for dates discrepancy 389235038 O26.841 Z3A.01 [id number] RAND HUITRON MD [place] [address],[place] [address] 06/20/2023 09:29:34 06/20/2023 14:17:50 Mixed anxiety and depressive disorder 160134510 F41.8 - discussed r/b/a of antidepres son therapy in and breastfeed ing, including small risk of TTN at time of delivery, low risk for defects with zoloft and prozac, encourage treating maternal mental health issues- would like to trial zoloft, will start at 25mg and titrate as needed Miscarriage 84005438 O03 .9 - quant hCG dropping as of 06/16- had heavier bleeding, passed blood/tiss ue yesterday, bleeding lightened today- no abdominal pain- plan for serial hCG to trend to negative- discussed waiting for next until hCG resolves- discussed management options of cytotec vs D&C if hCG plateaus [id number] Rosalia Love [place] [address],[place] [address] 11/27/2023 14:45:09 11/27/2023 15:27:02 [id number] RAND HUITRON MD [place] [address],[place] [address] 11/27/2023 14:45:45 12/01/2023 12:15:16 [id number] RAND HUITRON MD [place] [address],[place] [address] 12/05/2023 11:48:29 12/05/2023 12:40:01 Nausea and vomiting 68500261 R11.2 - no improvemen t with unisom/B6- will trial reglan test positive 110040878 Z32.01 1. Exam today within normal limits.2. [...] next visit.7. Genetic screening: declines. [id number] Mindy Swati [place] [address],[place] [address] 12/25/2023 11:55:14 12/25/2023 12:42:28 screening 050927869 Z36.82 [id number] RAND HUITRON MD [place] [address],[place] [address] 12/25/2023 11:55:37 12/26/2023 09:34:48 Routine care 312470483 Z34.90 Uterine sc ar from previous surgery affecting 22168514 O34.29 Gestation period, 12 weeks 68549983 Z3A.12 - continue PNV Mixed anxi ety and depressive disorder 894400670 F41.8 - prozac, mood stable [id number] RAND HUITRON MD [place] [address],[place] [address] 01/22/2024 09:45:31 01/22/2024 10:18:46 Nausea and vomiting 18104770 R11.2 - improved with zofran Past pregn jacinda history of section 072575001 Z98.890 Gestation period, 16 weeks 74485361 Z3A.16 [id number] Mindy Dillardmirtha [place] [address],[place] [address] 02/19/2024 09:33:58 02/19/2024 11:51:49 screening 060017894 Z36.0 Z3A.20 [id number] RAND HUITRON MD [place] [address],[place] [address] 02/19/2024 09:34:56 02/19/2024 11:31:39 Nausea and vomiting 24829455 R11.2 - improved with zofran Past pregn jacinda history of section 154030517 Z98.890 Gestation period, 20 weeks 65435680 Z3A.20 [id number] RAND HUITRON MD [place] [address],[place] [address] 03/18/2024 09:54:18 03/19/2024 03:22:22 Body mass index 30+ - obesity 809769699 Z68.35 - testing at 37 weeks Past pregn jacinda history of section 631552206 Z98.890 - [facility] Gestation period, 24 weeks 105474283 Z3A.24 [id number] RAND HUITRON MD [place] [address],[place] [address] 04/15/2024 10:10:26 04/15/2024 11:04:20 Body mass index 30+ - obesity 107488832 Z68.35 - testing at 37 weeks Past pregn jacinda history of section 413704687 Z98.890 - [facility] Gestation period, 28 weeks 25063621 Z3A.28 [id number] RAND HUITRON MD [place] [address],[place] [address] 04/28/2024 09:25:43 04/28/2024 10:00:33 Uterine scar from previous surgery affecting 47738032 O34.29 Gestation period, 30 weeks 55602519 Z3A.30 [id number] Rosalia [facility] [address],[place] [address] 05/13/2024 09:20:43 05/13/2024 10:10:46 Uterine size for dates discrepancy 357507316 O26.843 O09.293 Z3A.32 [id number] RAND HUITRON MD [place] [address],[place] [address] 05/13/2024 10:04:38 05/13/2024 10:43:13 Maternal obesity complicating , childbirth and the puerperium, antepartum 8815938419 07 O99.213 Uterine sc ar from previous surgery affecting 60674438 O34.29 Gestation period, 32 weeks 9978021 Z3A.32 [id number] RAND HUITRON MD [place] [address],[place] [address] 05/27/2024 09:33:44 05/27/2024 11:12:13 Uterine scar from previous surgery affecting 20540128 O34.29 - desires [facility] Gestation period, 34 weeks 22503545 Z3A.34 [id number] RAND HUITRON MD [place] [address],[place] [address] 06/10/2024 09:30:26 06/10/2024 11:49:16 Uterine scar from previous surgery affecting 90534559 O34.29 - desires [facility] Gestation period, 36 weeks 24045197 Z3A.36 [id number] [facility] [address],[place] [address] 06/18/2024 11:09:09 06/19/2024 09:39:26 Body mass index 30+ - obesity 842122386 Z68.35 Maternal o besity complicating , childbirth and the puerperium, antepartum 1890302401 07 O99.210 [id number] Rosalia Love [place] [address],[place] [address] 06/18/2024 11:09:45 06/18/2024 12:13:55 Maternal obesity complicating , childbirth and the puerperium, antepartum 4486334430 07 O99.213 O09.293 Z3A.37 [id number] RAND HUITRON MD [place] [address],[place] [address] 06/18/2024 11:09:59 06/18/2024 12:53:33 Maternal obesity complicating , childbirth and the puerperium, antepartum 9189958027 07 O99.213 - reactive testing today- continue weekly Uterine sc ar from previous surgery affecting 20831764 O34.29 - desires RCS Sterilizat ion requested 892475897 Z30.2 - patient desires permanent sterilizat ion- discussed risks, benefits, and alternativ es of bilateral salpingect krishan, including risks of bleeding, infection and injury to surroundin g organs. Also discussed alternativ e contracept tristian options including partner vasectomy and patient declines. Gestation period, 37 weeks 65638903 Z3A.37 [id number] CASSIUS Barrios [place] [address],[place] [address] 06/24/2024 09:33:14 06/24/2024 11:34:09 Maternal obesity complicating , childbirth and the puerperium, antepartum 3934450716 07 O99.213 - reactive testing today- continue weekly [id number] Mindy Swati [place] [address],[place] [address] 06/24/2024 09:33:29 06/24/2024 10:16:06 Maternal obesity complicating , childbirth and the puerperium, antepartum 0169645865 07 O99.213 O09.293 Z3A.38 [id number] RAND HUITRON MD [place] [address],[place] [address] 06/24/2024 09:33:51 06/24/2024 11:21:15 Uterine scar from previous surgery affecting 15918954 O34.29 - desires RCS Sterilizat ion requested 945153054 Z30.2 - patient desires permanent sterilizat ion- discussed risks, benefits, and alternativ es of bilateral salpingect krishan, including risks of bleeding, infection and injury to surroundin g organs. Also discussed alternativ e contracept tristian options including partner vasectomy and patient declines. Gestation period, 38 weeks 38255652 Z3A.38 - continue PNV Maternal o besity complicating , childbirth and the puerperium, antepartum 4283534658 07 O99.213 - reactive testing today- continue weekly Health Concerns Section Related Observation LastModified by Organization Detai ls LastModified Time None Recorded Concern Status LastModified by Organization Details LastModified Time None Recorded Advance Directives Directive None Recorded Payers Encounter Date Sequence Insurance Name Policy Number Policy Ingram Covered Member ID Ingram Member ID Guarantor Name 06/18/2024 1 [place] [id number] Ifeoma Childers Tari [id number] Ifeoma Tari 06/18/2024 1 [place] [id number] Ifeoma S Baxley [id number] Ifeoma Tari 06/24/2024 1 [place] [id number] Ifeoma Childers Tari [id number] Ifeoma Baxley 06/24/2024 1 [place] [id number] Ifeoma Childers Baxley [id number] Ifeoma Baxley 06/24/2024 1 [place] [id number] Ifeoma Childers Baxley [id number] Ifeoma Barbains OBGyn Episode Ob Episode Information Episode Created Date Number of Fetuses Patient Bloodtype Patient rh Status Prepregnancy Weight lbs Domestic Partner Domestic Partner Phone Father Name Senior Clinical Data Coordinator Status 01/20/20 23 1 CLOSED Fetus Data First Name Last Name Admitted to NICU Weight (g) Sex Living Outcome Pediatric Complications Fetus ID Race Codes Race Delivery Type 2919.77 1704 Full Term 09266 Primary Chavez Calculation Initial Chavez Date Initial [...] Domestic Partner Domestic Partner Phone Father Name Senior Clinical Data Coordinator Status 11/27/19 24 1 CLOSED Fetus Data First Name Last Name Admitted to NICU Weight (g) Sex Living Outcome Pediatric Complications Fetus ID Race Codes Race Delivery Type , Spontane ous 14192 Chavez Calculation Initial Chavez Date Initial Exam [...] Domestic Partner Domestic Partner Phone Father Name Senior Clinical Data Coordinator Status 12/25/19 24 1 OPEN Fetus Data First Name Last Name Admitted to NICU Weight (g) Sex Living Outcome Pediatric Complications Fetus ID Race Codes Race Delivery Type 22692 Problems Problem Notes Problem Name Start Date End Date Resolution Snomed Code Not e Body mass index 30+ - obesity 598330079 antental testin g at 37wks Past history of section 447919435 [facility] Chavez Calculation Initial Chavez Date Initial Exam [...] Weight in lbs Pre/Post Dialysis Refused Weight 202.177705841189 BP Diastolic BP Location Tested BP Systolic BP Type 68 111 Fetus Heart Rate Present Fetus Movement Comments Patient presents to [facility] care. thus far uncomplicated. Nausea improving, [...] Weight in lbs Pre/Post Dialysis Refused Weight 205.795424882627 BP Diastolic BP Location Tested BP Systolic [...] Weight in lbs Pre/Post Dialysis Refused Weight 207.614844784398 BP Diastolic BP Location Tested BP Systolic [...] Type Weight in lbs Pre/Post Dialysis Refused 208.004086205943 BP Diastolic BP Location Tested BP Systolic [...] Weight in lbs Pre/Post Dialysis Refused Weight 211.915534615579 BP Diastolic BP Location Tested BP Systolic [...] Weight in lbs Pre/Post Dialysis Refused Weight 206.614496799425 BP Diastolic BP Location Tested BP Systolic [...] Weight in lbs Pre/Post Dialysis Refused Weight 213.947869173995 BP Diastolic BP Location Tested BP Systolic BP Type 69 L arm 103 sitting Fetus Heart Rate Present Fetus Movement A Yes Comments Patient c/o of slight nausea , lower back and hip pain. States had some lightheadedness yesterday. Good movement. No bleeding. EFW 47%, vertex. Discussed RSV and preadmission. RCS scheduled 2/25. RTC 2 weeks. Flowsheet Date 05/27/2024 Weathers Score Blood Edema Fundus Height Fundus Units Glucose Ketones Leukocytes Nitrite Labor Signs Protein Cervic Dilation Cervic Effacement Cervic Station neg none Type Weight in lbs Pre/Post Dialysis Refused Weight 211.853671595530 BP Diastolic BP Location Tested BP Systolic [...] Weight in lbs Pre/Post Dialysis Refused Weight 214.743382526563 BP Diastolic BP Location Tested BP Systolic BP Type 63 L arm 104 sitting Fetus Heart Rate Present A 155 Fetus Movement A Yes Comments Patient c/o left upper pain. Good movement. No cramping or bleeding. Has URI, doing well with symptomatic treatment. GBS collected today. Will start testing next week for obesity. RTC 1 week. Flowsheet Date 06/18/2024 Weathers Score Blood Edema Fundus Height Fundus Units Glucose Ketones Leukocytes Nitrite Labor Signs Protein Cervic Dilation Cervic Effacement Cervic Station Type Weight in lbs Pre/Post Dialysis Refused BP Diastolic BP Location Tested BP Systolic BP Type Fetus Heart Rate Present Fetus Movement Comments Flowsheet Date 06/18/2024 Weathers Score Blood Edema Fundus Height Fundus Units Glucose Ketones Leukocytes Nitrite Labor Signs Protein Cervic Dilation Cervic Effacement Cervic Station Type Weight in lbs Pre/Post Dialysis Refused BP Diastolic BP Location Tested BP Systolic BP Type Fetus Heart Rate Present Fetus Movement Comments Flowsheet Date 06/18/2024 Weathers Score Blood Edema Fundus Height Fundus Units Glucose Ketones Leukocytes Nitrite Labor Signs Protein Cervic Dilation Cervic Effacement Cervic Station Type Weight in lbs Pre/Post Dialysis Refused 204.433915548759 BP Diastolic BP Location Tested BP Systolic BP Type 86 L arm 121 sitting Fetus Heart Rate Present A Present Fetus Movement A Yes Comments Good movement. No cram ping or bleeding. Has been having some increased nausea, zofran helping. URI symptoms improving. Desires bilateral salpingectomy with RCS, discussed permanence of procedure. Patient voices understanding. Will add bilateral salpingectomy to procedure. EFW 29%, normal fluid, BPP 10/10. RTC 1 week. Flowsheet Date 06/24/2024 Weathers Score Blood Edema Fundus Height Fundus Units Glucose Ketones Leukocytes Nitrite Labor Signs Protein Cervic Dilation Cervic Effacement Cervic Station Type Weight in lbs Pre/Post Dialysis Refused BP Diastolic BP Location Tested BP Systolic BP Type Fetus Heart Rate Present Fetus Movement Comments Flowsheet Date 06/24/2024 Weathers Score Blood Edema Fundus Height Fundus Units Glucose Ketones Leukocytes Nitrite Labor Signs Protein Cervic Dilation Cervic Effacement Cervic Station Type Weight in lbs Pre/Post Dialysis Refused BP Diastolic BP Location Tested BP Systolic BP Type Fetus Heart Rate Present Fetus Movement Comments Flowsheet Date 06/24/2024 Weathers Score Blood Edema Fundus Height Fundus Units Glucose Ketones Leukocytes Nitrite Labor Signs Protein Cervic Dilation Cervic Effacement Cervic Station Type Weight in lbs Pre/Post Dialysis Refused 212.00853743790 BP Diastolic BP Location Tested BP Systolic BP Type 85 L arm 123 sitting Fetus Heart Rate Present A 140 Fetus Movement A Yes Comments Doing well, no issues. Baby active. No ctx, LOF, or VB. BPP 10/10. Ready for c section next week! Labor precautions reviewed. Menstrual History Last Menstrual Date Menses Monthly [...]
--- OUTSIDE RECORDS SUMMARY | 2024-07-01 05:31 | XMS_ITS | Encounter Summary ---
Author Organization [facility] Address [address] [place] [address] Care Team Providers Care Chief Scientist Name Role Phone Ozzie Andrews Primary Care Provider [phone] Encounter Details Date Type Department Care Team (Late st Contact Info) Description 06/22/2023 Orders Only [facility] [address] [place] [id number] Scanning, Provider Social History Tobacco Use [...] on file Legal Sex Female 7:09 PM CLINICAL WRITER Gender Identity Female 04/02/2020 11:49 AM CLINICAL WRITER Sexual Orientation Straight 04/02/2020 11 :49 AM CLINICAL WRITER documented as of this encounter Plan of Treatment Not on file documented as of this encounter Procedures Procedure Name Priority Date/Time Associated Diagnosis Comments SCAN - LABS 06/22/2023 documented in this encounter Results * SCAN - LABS (06/22/2023) us Provider Scanning Final Result documented in this encounter Visit Diagnoses Not on filedocumented in this encounter Care Teams Chief Scientist Relationship Specialty Start Date End Date Ozzie Andrews PA PCP - General Family Medicine 10/28/18 documented as of this encounter
--- OUTSIDE RECORDS SUMMARY | 2024-07-01 05:31 | XMS_ITS | Data Portability ---
Author Organization [facility] Address [address] [place] [address] Assessment No assessment recorded. Plan of Treatment Reminders Order Date Submit Date Provider Last Modified By Organization Details Last Modified Time Details Appointments ANY 30 2024 08:15A DAVE Walker Not available Not available Not available Lab None recorded. Referral None recorded. Procedures None recorded. Surgeries None recorded. Imaging None recorded. Medication Orders albuterol sulfate HFA 90 mcg/actua tion aerosol inhaler 2023 [place] [facility] [employer] [facility][id number], [address], [place], [place], [id number], 04/16/2024 08:51:06 fluoxetin e 20 mg capsule 2023 [facility] [employer] #[id number], [address], [place], [place], [phone], 04/16/2024 08:51:07 Patient TargetsNo targets recorded. Patient Instructions Encounter Date Encounter Id Patient Instructions Last Modified By Organization Details Last Modified Time 04/16/2024 [id number] A healthy lifestyle: care instructions [email or web address] Not available 04/16/2024 08:42:18 Reason for Referral None Reported. Problems Name Problem SNOMED Code Status Onset Date Resolution Date Notes Provider Name and Address Organization Details Recorded Time Adult health examination Active 2023 [place] JOSE mitchell 15:41:43 Gastroesophage al reflux disease without esophagitis 736686421 Active 2023 [facility] [place] JOSE mitchell SIBandar 4 15:41:44 Allergic rhinitis 74979688 Active 2023 BENEDICTO [place] - SI [...] Updated DateTime 4 160.02 cm 37.4 kg/m2 39103.3 4 g 97 % 97 % 88 [...] Time Influenza, MDCK, quadrivalent, PF 9 completed [facility], [place] [facility] 04/16/2024 08:32:45 Influenza, MDCK, quadrivalent, PF 2 completed [facility] [facility] 04/16/2024 08:32:45 Influenza, live, trivalent, intranasal 3 completed [facility] [facility] 04/16/2024 08:32:45 COVID-19, mRNA, LNP-S, PF, 100 mcg/0.5mL dose or 50 mcg/0.25mL dose [address] [facility], [place] [facility] 04/16/2024 08:32:45 COVID-19, mRNA, LNP-S, PF, 100 mcg/0.5mL dose or 50 mcg/0.25mL dose [address] [facility], [place] [facility] 04/16/2024 08:32:45 COVID-19, mRNA, LNP-S, PF, 100 mcg/0.5mL dose or 50 mcg/0.25mL dose [address] [facility], [place] [facility] 04/16/2024 08:32:45 COVID-19, mRNA, LNP-S, bivalent, PF, 50 mcg/0.5 mL or 25mcg/0.25 mL dose 2 completed [facility], [place] [facility] 04/16/2024 08:32:45 COVID-19, [...] 04/16/2024 08:32:45 OPV 6 completed [place], [place] [facility] 04/16/2024 08:32:45 DTP-Hib 6 completed [place] [facility] 04/16/2024 08:32:45 DTP-Hib 6 completed [place] [facility] 04/16/2024 08:32:45 Influenza, split virus, trivalent, PF 4 completed [place]ier [place] [facility] 04/16/2024 08:32:45 Hep B, adolescent or pediatric 6 completed [place]ier [place] [facility] 04/16/2024 08:32:45 Hep B, adolescent or pediatric 6 completed [place] [facility] 04/16/2024 08:32:45 Hep B, adolescent or pediatric 6 completed Jabier [place] [facility] 04/16/2024 08:32:45 meningococcal MCV4P 4 completed [place]abier [place] [facility] 04/16/2024 08:32:45 Influenza, split virus, quadrivalent, PF 8 completed [place]ier [place] [facility] 04/16/2024 08:32:45 Influenza, split virus, quadrivalent, PF 1 completed [place], [place] null, [place] - [facility] 04/16/2024 08:32:45 Influenza, split virus, quadrivalent, PF 3 completed [place] 04/16/2024 08:32:45 Influenza, split virus, quadrivalent, PF 0 completed [place], [place] 04/16/2024 08:32:45 Past Encounters Encounter ID Performer Location Encounter Start Date Encounter Closed Date Diagnosis/Indication Diagnosis SNOMED-CT Code Diagnosis ICD10 Code Diagnosis Note [id number] DAVE Joya [facility] [address] [facility] [address] [place] [address] 04/16/2024 08:27:55 04/22/2024 08:44:10 Adult health examination 762232251 Z00.00 Healthy diet and exercise, HCM as discussed Gastroesop hageal reflux disease without esophagitis 763924378 K21.9 1 .Avoid lying flat 3 to [...] and exercise. 10. Stop smoking. Allergic rhinitis 174009 04 J30.9 This is a stable chronic condition controlled with p.r.n. 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 F41.8 cleared by OBGYN, CPM - The [...] can also call the suicide hotline at [phone]- [phone] Reactive a irway disease [id number] 06 J45.909 controlled with prn meds Health Concerns Section Related Observation LastModified by Organization Detai ls LastModified Time None Recorded Concern Status LastModified by Organization Details LastModified Time None Recorded Advance Directives Directive None Recorded Payers Encounter Date Sequence Insurance Name Policy Number Policy Ingram Covered Member ID Ingram Member ID Guarantor Name 04/16/2024 1 [place] [id number] Ifeoma Marc [id number] Ifeoma Marc Notes Date Note Type [...] on prozac DAVE Joya Attn: Accounting,[address] [facility], [place], [address], [facility] 04/16/2024 09:06:27 OBGyn Episode No OBEpisode recorded.
--- OUTSIDE RECORDS SUMMARY | 2024-07-01 05:31 | XMS_ITS | Encounter Summary ---
Author Organization [facility] Facility Care Team Providers Care Regional Intermodal Truck Driver Name Role Phone Ozzie Andrews Primary Care Provider Encounter Details Date Type Department Care Team (Latest Contact Info) Description 09/18/2017 Orders Only [facility] CLINCONV Provider, MD Oziel [address] [place] [id number] Social History Tobacco Use Types Packs/Day Years Used Date Smoking Tobacco: Never Assessed Comments Unknown Sex and Gender Information Value Date Recorded Sex Assigned at Not on file Legal Sex Female 7:09 PM FISCAL SERVICES MANAGER Gender Identity Female 04/02/2020 11:49 AM FISCAL SERVICES MANAGER Sexual Orientation Straight 04/02/2020 11 :49 AM FISCAL SERVICES MANAGER documented as of this encounter Plan [...] COVID: Suspected 05/25/2021 05/25/2021 05/25/2021 7:58 PM FISCAL SERVICES MANAGER documented as of this encounter Care Teams Regional Intermodal Truck Driver Relationship Specialty Start Date End Date Ozzie Andrews PA PCP - General Family Medicine 10/28/18 documented as of this encounter
--- OUTSIDE RECORDS SUMMARY | 2024-07-01 05:31 | XMS_ITS | Clinical Summary ---
Author Organization [facility] Address [address] [place] [address] Care Team Providers Care Base Filler Name Role Phone Ozzie Andrews Primary Care Provider [phone] Allergies No known active allergies Medications fexofenadine [...] understanding Assessment & Plan (07/04/2023 8:40 AM TABLEAU ARCHITECT): Images from the original note were not [...] 05/25/2021 Assessment & Plan (05/25/2021 9:26 AM TABLEAU ARCHITECT): Self-isolate 10 days from start of symptoms Increase fluid intake Report new or worsening symptoms Warning signs warranting immediate medical care: chest pain, trouble breathing, worsening shortness of breath Ear pressure, right 04/02/2020 Assessment & Plan (08/02/2021 8:32 AM CDT): resolved Assessment & Plan (04/02/2020 12:28 PM TABLEAU ARCHITECT): Due to symptoms and sinus congestion which [...] mapping Assessment & Plan (07/04/2023 8:41 AM TABLEAU ARCHITECT): Mole mapping performed skin care discussed Assessment & Plan (11/23/2021 7:48 AM CDT): Will call back to schedule shave BX right tricep due to irritation Assessment & Plan (06/21/2021 9:10 AM TABLEAU ARCHITECT): With scheduling mole mapping Routine general medical exam ination at a health care facility 10/23/2018 Assessment & Plan (07/04/2023 8:40 AM TABLEAU ARCHITECT): Healthcare maintenance updated Assessment & Plan (06/21/2021 9:10 AM TABLEAU ARCHITECT): Healthcare maintenance updated Body mass index (bmi) 38.0-38.9, adult 9 Lump of right breast 12/26/2017 Generalized anxiety disorder 01/05/2017 Assessment & Plan (08/06/2023 9:57 AM CDT): This is well controlled with no SI HI continue current meds follow-up six-month Assessment & Plan (07/04/2023 8:39 AM TABLEAU ARCHITECT): This is controlled current medications continue current meds follow-up routine there is no SI HI. Open door open Assessment & Plan (11/23/2021 7:52 AM CDT): Fair control, increasing prozac to 20, no SI/HI, f/u routine, MHC ordered Assessment & Plan (08/02/2021 8:32 AM CDT): Improved, CPM, refilled medications, f/u 6 months Assessment & Plan (06/21/2021 9:10 AM TABLEAU ARCHITECT): Images from the original note were not [...] is well controlled chronic condition continue current [id number] medication Assessment & Plan (08/02/2021 8:33 AM CDT): CPM Assessment & Plan (06/21/2021 9:09 AM TABLEAU ARCHITECT): This is well controlled with current medication [...] 07/09/2013 OPV 03/19/1996,01/16/1996 PPD TEST 10/20/2019, 9,10/22/2017,11/15 Fundology Sars-Cov-2 Bivalent V accination (12+ YRS) 01/03/2024 [...] on file Legal Sex Female 7:09 PM TABLEAU ARCHITECT Gender Identity Female 04/02/2020 11:49 AM TABLEAU ARCHITECT Sexual Orientation Straight 04/02/2020 11 :49 AM TABLEAU ARCHITECT Obstetrics History Last Filed Vital Signs Vital [...] 01/23/2031 01/23/2021, 10/22/2017, 03/19/1996, Additional history exists Hepatitis B Screening Completed 01/16/1996 , 1995, 1995 Covid-19 Vaccine Completed 01/03/2024, , 01/24/2023, Additional history exists Influenza Vaccine Completed 01/21/2024, , 01/24/2023, Additional history exists HPV Vaccines Aged Out No longer eligi ble based on patient's age to complete this topic Pneumococcal vaccine <65 Aged Out No longer eligible based on patient's age to complete this topic Varicella Vaccines Discontinued Insurance [email or web address] Care Teams Base Filler Relationship Specialty Start Date End Date Ozzie Andrews PA PCP - General Family Medicine 10/28/18
--- OUTSIDE RECORDS SUMMARY | 2024-07-01 05:31 | XMS_ITS | Encounter Summary ---
Author Organization [facility] Facility Care Team Providers Care Room Service Bellhop Name Role Phone Ozzie Andrews Primary Care Provider [phone] Encounter Details Date Type Department Care Team (Latest Contact Info) Description 09/27/2015 Orders Only [facility] CLINCONV Provider, MD Oziel [address] [place] [address] Social History Tobacco Use Types Packs/Day Years Used Date Smoking Tobacco: Never Assessed Comments Unknown Sex and Gender Information Value Date Recorded Sex Assigned at Not on file Legal Sex Female 7:09 PM FOREST RESOURCES PROFESSOR Gender Identity Female 04/02/2020 11:49 AM FOREST RESOURCES PROFESSOR Sexual Orientation Straight 04/02/2020 11 :49 AM FOREST RESOURCES PROFESSOR documented as of this encounter Plan of [...] COVID: Suspected 05/25/2021 05/25/2021 05/25/2021 7:58 PM FOREST RESOURCES PROFESSOR documented as of this encounter Care Teams Room Service Bellhop Relationship Specialty Start Date End Date Ozzie Andrews PA PCP - General Family Medicine 10/28/18 documented as of this encounter
--- NOTE | 2024-07-01 05:37 | LDADM ---
This patient, Ifeoma Marc, was admitted to Labor/Delivery/Recovery 120 on 07/01/24 at 05:27. Plans for labor, pain management and were discussed with patient. Patient/family oriented to hospital policies and general routines including ID bracelet, bed and alarms, visiting hours, pain management, procedures, bathroom and other care routines, personal items, smoking policy, room service/diet and guest tray routines, infant security routines, and visiting hours. Patient/Family are encouraged to report perceived risks to care and to ask questions if they do not understand what they are told or what they should do. See OBIX for further documentation.
[2024-07-01] MEDS: LACTATED RINGERS 1,000 ML 125 ML IV CONT ×2 (06:14→07:25)
[2024-07-01] MEDS: ACETAMINOPHEN 500 MG TABLET 1000 MG PO (06:15)
[2024-07-01 06:19] LABS: Basophils Absolute Auto 0.1 K/mm3 (0.0-0.1); Basophils Percent Auto 0.6 % (0.2-1.2); Eosinophils Absolute Auto 0.2 K/mm3 (0-0.3); Eosinophils Percent Auto 2.3 % (0-4.4); Hematocrit 32.4 % (37.0-47.0); Hemoglobin 11.2 g/dL (12.0-15.0); Immature Granulocyte Absolute 0.06 K/mm3 (0.00-0.031); Immature Granulocyte Percent A 0.7 % (0-0.5); Lymphocytes Absolute Auto 2.36 K/mm3 (0.9-3.2); Lymphocytes Percent Auto 27.6 % (18.3-44.2); Mean Corpuscular HGB Conc 34.6 g/dl (32-36); Mean Corpuscular Volume 86.9 fl (80-100); Mean Platelet Volume 11.5 fl (7.4-10.4); Monocytes Absolute Auto 0.5 K/mm3 (0.1-0.6); Monocytes Percent Auto 5.5 % (2.6-8.5); Neutrophils Absolute Auto 5.4 K/mm3 (1.3-6.7); Neutrophils Percent Auto 63.3 % (45.5-73.1); Platelet Count Result 227 k/mm3 (150-375); Red Blood Count 3.73 M/mm3 (4.2-5.4); Red Cell Distribution Width 12.3 % (11.5-14.5); White Blood Count 8.6 K/mm3 (4.5-10.0)
[2024-07-01 06:30] LABS: Alanine Aminotransferase 15 U/L (6-35); Alkaline Phosphatase 178 U/L (38-126); Anion Gap 10 mmol/L (4-12); Aspartate Amino Transferase 17 U/L (14-36); Bilirubin,Total 0.3 mg/dL (0.2-1.3); Blood Urea Nitrogen 9 mg/dL (7-17); Calcium 8.7 mg/dL (8.4-10.2); Carbon Dioxide 21 mmol/L (22-30); Chloride 104 mmol/L (98-107); Estimated CRCL calculation 155 ml/min; Estimated Glomerular Filt Rate > 60; Glucose 80 mg/dL (65-110); Potassium 3.7 mmol/L (3.4-5.0); Sodium 135 mmol/L (137-145)
--- NOTE | 2024-07-01 06:43 | P.PNAN_ITS ---
Anes - Initial Pre Proc Eval Procedure: Operation Date: 07/01/24 07:30 Proposed Procedures p Repeat Section with Tubal Ligation - Ilya Davila MD Date/Time: 07/01/24 06:43 Surgeon: Ilya Davila MD Pre Op Diagnosis: Patient Data Age: 28 Gender: F Height: 1.63 m Weight: 97.3 kg Last Vital Signs Pulse 84 07/01/24 06:20 BP 129/88 07/01/24 06:20 O2 Del Method Room Air 06/30/24 08:00 Allergies Allergy/AdvReac Type Severity Reaction Status Date / Time No Known Allergies Allergy Verified 06/17/24 19:32 Home Medications ?Medication ?Instructions ?Recorded ?Confirmed ?Type omeprazole 40 mg capsule,delayed 40 mg PO DAILY 12/17/20 06/17/24 History release fluoxetine 20 mg capsule 20 mg PO DIRECTED 06/19/22 06/17/24 History aspirin 81 mg tablet,delayed 81 mg PO DAILY 06/10/24 06/17/24 History release (Adult Aspirin Regimen) ondansetron HCl 8 mg tablet 8 mg PO Q8H PRN nausea and vomiting 06/10/24 06/17/24 History vits no.130-ferrous fum 1 tablet PO DAILY 06/10/24 06/17/24 History 27 mg iron-folic acid 800 mcg tablet ( Vitamin) Laboratory Tests 07/01/24 07/01/24 07/01/24 05:52 05:52 05:52 WBC 8.6 K/mm3 (4.5-10.0) RBC 3.73 L M/mm3 (4.2-5.4) Hgb 11.2 L g/dL Cancelled (12.0-15.0) Hct 32.4 L % Cancelled (37.0-47.0) MCV 86.9 fl (80-100) MCH 30.0 pg (26-34) MCHC 34.6 g/dl (32-36) RDW 12.3 % (11.5-14.5) Plt Count 227 k/mm3 (150-375) MPV 11.5 H fl (7.4-10.4) Immature Gran % (Auto) 0.7 H % (0-0.5) Neut % (Auto) 63.3 % (45.5-73.1) Lymph % (Auto) 27.6 % (18.3-44.2) Dauphin % (Auto) 5.5 % (2.6-8.5) Eos % (Auto) 2.3 % (0-4.4) Baso % (Auto) 0.6 % (0.2-1.2) Lymph # (Auto) 2.36 K/mm3 (0.9-3.2) Dauphin # (Auto) 0.5 K/mm3 (0.1-0.6) Eos # (Auto) 0.2 K/mm3 (0-0.3) Baso # (Auto) 0.1 K/mm3 (0.0-0.1) Abs Immat Gran (auto) 0.06 H K/mm3 (0.00-0.031) Absolute Neuts (auto) 5.4 K/mm3 (1.3-6.7) Absolute Nucleated RBC 0.000 K/mm3 (0.0-0.012) Nucleated RBC % 0.0 % (0.0-0.2) Sodium 135 L mmol/L (137-145) Potassium 3.7 mmol/L (3.4-5.0) Chloride 104 mmol/L (98-107) Carbon Dioxide 21 L mmol/L (22-30) Anion Gap 10 mmol/L (4-12) BUN 9 mg/dL (7-17) Creatinine 0.51 L mg/dL (0.7-1.0) Estim Creat Clear Calc 155 ml/min Estimated GFR > 60 (59 - ) Glucose 80 mg/dL (65-110) Calcium 8.7 mg/dL (8.4-10.2) Total Bilirubin 0.3 mg/dL (0.2-1.3) AST 17 U/L (14-36) ALT 15 U/L (6-35) Alkaline Phosphatase 178 H U/L (38-126) Total Protein 6.0 L g/dL (6.3-8.2) Albumin 3.0 L g/dL (3.5-5.1) HIV 1&2 Ab/P24 Ag 4thGn Pending Patient hx anesthesia problems: none Family hx anesthesia problems: none Results Review: All pre-operative results and documents have been reviewed as part of the pre- operative evaluation. [facility] Past Medical History Medical History Breast cyst Delivery by section for breech presentation Encounter for surveillance of implantable subdermal contraceptive GBS (group B streptococcus) infection Heart palpitations Preeclampsia Surgical History Surgical History History of removal of skin mole Family History Family History Father Hypertension Mother Hypertension Depression Heart disease Grandparent Diabetes mellitus Heart disease Social History Social History Smoking status: Never smoker Alcohol intake: former Substance use: never Substance use type: marijuana Last use: 2 days ago Do You Feel Safe in your Home?: Yes Lack of Transportation: No Lack of Food: Never True Current Housing: I Have Housing Concerned About Future Housing: No Difficulty Paying Gas/Electric Bills: No Difficulty Paying for Meds: No Currently Unemployed: No Education: Master's Degree or Higher Difficulty w/ Childcare or Family Care: No Occupation/Education: student Gender identity (if verbalized by the patient): Female Spiritual care concerns: No Agree to blood products: Yes Anes - Eval Final PreProcedure Day of Procedure 07/01/24 06:43 Patient weight: obese Heart: regular rate and rhythm Lungs: clear to auscultation and normal air movement Airway: Mallampati scale class II Neurological: alert and oriented Last oral intake: >/= 8 hours ASA classification: II Emergent: no Anesthetic plan: proceed Anesthesia type and monitoring: regional spinal and standard monitoring Results Review: All pre-operative results and documents have been reviewed as part of the pre- operative evaluation. Informed Consent: The patient's anesthetic plan and its attendant risks and benefits were discussed with the patient/family/POA. Questions were solicited and answers provided to the satisfaction of the patient/family/POA.
[2024-07-01 07:02] LABS: Syphilis IgG/IgM Antibody Negative (Negative)
[2024-07-01 07:13] LABS: HIV 1/2 Ab P24 Ag Result Negative (Negative)
[2024-07-01] MEDS: FAMOTIDINE 20 MG/2 ML VIAL IV PUSH (07:22)
[2024-07-01] MEDS: ONDANSETRON INJ 4 MG/2 ML VIAL IV PUSH ×2 (07:22→13:56)
--- NOTE | 2024-07-01 07:22 | P.HP_ITS ---
H&P: HPI History of Present Illness Date/Time: 07/01/24 07:22 Chief Complaint: repeat c section Narrative: Patient is a 28 year old who presents for repeat c section. Her has been complicated by obesity and hx of prior c section. She denies contractions, leakage of fluid or vaginal bleeding. Good movement. She has also completed childbearing and would like to proceed with permanent ster ilization with bilateral salpingectomy. We discussed the permanence of this procedure and that it cannot be reversed. She voices understanding. Will proceed with repeat c section and bilateral salpingectomy. Review of Systems Review of Systems: All systems reviewed & are unremarkable except as noted in HPI and below PMFSH Past Medical History Medical History Encounter for surveillance of implantable subdermal contraceptive Delivery by section for breech presentation GBS (group B streptococcus) infection Preeclampsia Heart palpitations Breast cyst Surgical History Surgical History History of removal of skin mole Family History Family History Father Hypertension Mother Hypertension Depression Heart disease Grandparent Diabetes mellitus Heart disease Social History Social History Smoking status: Never smoker Alcohol intake: former Substance use: never Substance use type: marijuana Last use: 2 days ago Do You Feel Safe in your Home?: Yes Lack of Transportation: No Lack of Food: Never True Current Housing: I Have Housing Concerned About Future Housing: No Difficulty Paying Gas/Electric Bills: No Difficulty Paying for Meds: No Currently Unemployed: No Education: Master's Degree or Higher Difficulty w/ Childcare or Family Care: No Occupation/Education: student Gender identity (if verbalized by the patient): Female Spiritual care concerns: No Agree to blood products: Yes Meds Home Medications and Allergies Home Medications ?Medication ?Instructions ?Recorded ?Confirmed ?Type omeprazole 40 mg capsule,delayed 40 mg PO DAILY 12/17/20 06/17/24 History release fluoxetine 20 mg capsule 20 mg PO DIRECTED 06/19/22 06/17/24 History aspirin 81 mg tablet,delayed 81 mg PO DAILY 06/10/24 06/17/24 History release (Adult Aspirin Regimen) ondansetron HCl 8 mg tablet 8 mg PO Q8H PRN nausea and vomiting 06/10/24 06/17/24 History vits no.130-ferrous fum 1 tablet PO DAILY 06/10/24 06/17/24 History 27 mg iron-folic acid 800 mcg tablet ( Vitamin) Allergies Allergy/AdvReac Type Severity Reaction Status Date / Time No Known Allergies Allergy Verified 06/17/24 19:32 Vital Signs Vital Signs - 24 hr 06/30/24 08:00 07/01/24 06:20 07/01/24 06:20 Temperature 98.0 F Pulse Rate 84 Blood Pressure 129/88 Oxygen Delivery Room Air Exam Const: General: comfortable and no acute distress HENMT: Mouth: Yes moist mucous membranes Eyes: General: appearance normal, both eyes and all related structures Resp: Effort & Inspection: normal respiratory effort Cardio: Rate: regular rate Skin: General skin exam: normal color Extrem: General: normal to inspection Psych: Mental Status: mental status grossly normal H&P: Results Labs Labs: Short CBC 07/01/24 07/01/24 07/01/24 Range/Units 05:52 05:52 05:52 WBC 8.6 (4.5-10.0) K/mm3 Hgb 11.2 L Cancelled (12.0-15.0) g/dL Hct 32.4 L Cancelled (37.0-47.0) % Plt Count 227 (150-375) k/mm3 [facility] 07/01/24 05:52 Sodium 135 L Potassium 3.7 Chloride 104 Carbon Dioxide 21 L BUN 9 Creatinine 0.51 L Glucose 80 Calcium 8.7 Liver Function 07/01/24 Range/Units 05:52 Total Bilirubin 0.3 (0.2-1.3) mg/dL AST 17 (14-36) U/L ALT 15 (6-35) U/L Alkaline Phosphatase 178 H (38-126) U/L Albumin 3.0 L (3.5-5.1) g/dL Assessment and Plan Assessment and plan (1) Hx of section complicating : Code(s): O34.219 - Maternal care for unspecified type scar from previous delivery Status: Acute Assessment and Plan: - risks and benefits of repeat c section vs TOLAC discussed with patient who would like to proceed with repeat c section - patient has now completed childbearing and would also like to proceed with bilateral salpingectomy. Discussed risks benefits and alternatives of permanent sterilization with patient who voices understanding - will proceed with repeat c section and bilateral salpingectomy (2) Obesity (BMI 35.0-39.9 without comorbidity): Code(s): E66.9 - Obesity, unspecified Status: Acute
[2024-07-01] MEDS: ceFAZolin 2 GM/D5W 50 ML 2 GM/50 ML BAG IVPB (07:27)
--- NOTE | 2024-07-01 07:28 | WPDHPUPDATE1 ---
History and Physical Update Update Date/Time: 07/01/24 07:28 History and Physical has been reviewed, including an updated exam of the patient. There are NO changes in the patient's condition. Risks, benefits, and alternatives have been discussed and questions answered. Patient agrees to proceed with procedure.
[2024-07-01] MEDS: OXYTOCIN 30 UNITS/NS 500 ML 30 UNITS/500 ML BAG 125 UNITS IV CONT (09:20)
--- NOTE | 2024-07-01 10:48 | OBPPTRN ---
Patient transferred to post room #286 via stretcher. Support person present. Oriented to unit, room, information board, rooming in, admission packet and security measures. Patient verbalizes understanding.
[2024-07-01] MEDS: SIMETHICONE 80 MG TAB.CHEW PO ×2 (12:22→17:58)
[2024-07-01] MEDS: ACETAMINOPHEN 325 MG TABLET 650 MG PO ×3 (12:22→23:52)
[2024-07-01] MEDS: KETOROLAC 15 MG/ML VIAL (*BKC) IV PUSH ×3 (12:22→23:53)
--- NOTE | 2024-07-01 13:01 | P.PCNOB_ITS ---
OB - Delivery Note Procedure Delivery date: 07/01/24 Pre-op diagnosis: Previous Delivery Post-op Diagnosis: Same Induction method: None Delivery monitor: External FHT Prior to decision for section, ACOG/SMFM labor guidelines were considered and discussed with the patient and staff. Decision made to proceed with the section.: Yes Procedure Performed: Repeat Surgeon: Ilya Davila MD Anesthesia type: Spinal Description of Procedure/Findings: The patient was taken to the operating room where she was placed in the dorsal supine position with a leftward tilt. The electronic monitor was placed and heart rate was found to be reassuring. She was prepped and draped in the normal sterile fashion, and anesthesia was checked to be adequate. A Pfannensteil skin incision was made with the scalpel and carried through to the underlying layer of fascia with the scalpel. The fascia was incised in the midline and the incision extended laterally with the Ruiz scissors. The superior aspect of the fascial incision was then grasped with Gilberto clamps, elevated, and the underlying rectus muscles dissected off bluntly and with Ruiz scissors. Attention was then turned to the inferior aspect of the fascial incision, which in similar fashion was grasped, elevated, and the rectus muscles dissected off.? The rectus muscles were then in the midline, and the peritoneum entered using two Peans and Metzenbaum scissors. The peritoneal incision was extended superiorly and inferiorly with good visualization of the bladder. The bladder blade was then inserted and the vesicouterine peritoneum identified, grasped with a Peon clamp, and entered sharply with the Metzenbaum scissors. The incision was extended laterally and the bladder flap created digitally. With the bladder blade providing retraction and visualization, the lower uterine segment was incised in a transverse fashion with the scalpel. The uterine incision was then extended laterally. The bladder blade was removed and the 's head was elevated and delivered atraumatically. The remainder of the was then delivered without difficulty, and the infant's nose and mouth were suctioned with the bulb suction. The umbilical cord was doubly clamped and cut. The was then handed off to the waiting nursing staff. Specimens then obtained as listed below. The placenta was then removed manually and the uterus was exteriorized and jerry ared of all clots and debris. The uterine incision was repaired with 0-Monocryl in a running, interlocked fashion. A bilateral salpingectomy was performed by grasping the right fallopian tube with a Armington and transecting the mesosalpinx using the Ligasure device. The tube was removed to the cornua of the uterus. The same procedure was performed on the left side. The posterior cul-de-sac was manu ally cleared of all clots and debris. The uterus was returned to the abdomen. The gutters were then manually cleared of all clots and debris.? The uterine incision was visualized to be hemostatic. The fascia was reapproximated with 0- Vicryl in a running fashion. The subcutaneous tissues were irrigated with warmed normal saline, and hemostasis was assured. The skin was closed with 4-0 monocryl in a running subcuticular stitch. Fundal pressure was applied to express remaining intrauterine clots and debris. The patient tolerated the procedure well. Sponge, lap, and needle counts were correct times three per nursing. The patient was taken to the recovery room in stable condition. Specimen: Yes Estimated Blood Loss: 125 Pathology: Yes Complications: No immediate complications Condition: Stable Disposition: Floor Baby Date of : 07/01/24 Gestational Age by Date: 39 Infant gender: Male Weight (pounds): 7 Weight (ounces): 9 presentation: vertex Placenta delivery description: Expressed Cord Vessel Description: 3 Vessels and Around Body
[2024-07-01] MEDS: DEXTROSE 5%/0.45% SOD CHL 1,000 ML 125 ML IV CONT (13:45)
--- NOTE | 2024-07-01 16:06 | PC.NURSE ---
1245. Introductions were made, then consulted with patient to assess needs related to . Mother led the conversation with her?plans to feed?her infant and the?experience so far, mother states it is her intention to exclusively breastfeed but she would like to add in pumping and feeding bc she will be returning to work in a few months time. Encouraged understanding of the benefits of skin to skin (demonstrating unwrapping and placing upright on her chest), stimulating with massage touch, changing positions to encourage wakefulness, how to watch for early feeding cues, responsive feeding, feeding on demand (aiming for 8-12 times in 24 hours, about every 2-3 hours), milk production, building/maintaining a milk supply, duration of feeding, signs of adequate intake/output and how to record on the feeding sheet. Mother works well with her infant with encouragement and education. Reviewed positioning and ear, shoulder, hip alignment, supporting the breast to facilitate a deep latch, asymmetrical latch (off-center), leading with the chin with a big, open, wide gape and body close to mother. Infant latched optimally to the left breast in football position. Education given to the mother of how to visualize the suckling (with good rocking jaw motion), swallows (dropping of the lower jaw) and how to listen for drinking at the breast (the ka sound). Infant was able to maintain latch without pain to mother protecting the nipple with optimal positioning and latching. Reviewed comfort measures of healing with a warm, wet washcloth to rinse breast, then leave open to air-dry, good handwashing when or touching the breast/nipples to prevent infection. Mother voiced understanding of skin to skin, stimulating with massage touch, responsive feedings, hand expressed colostrum, talking to to encourage if it has been 2 -2.5 hours since the start of the last , to call if does not latch, or if there is discomfort with . Resources used for education were facilitated with the visual educational handouts/ tool/mom and baby guide, Inpatient resources provided with admission packet. Mother voiced understanding of information, demonstrated learning and will call if there is a request for assistance. Reported to the Primary RN.
[2024-07-01] MEDS: DOCUSATE SODIUM 100 MG CAPSULE PO (17:09)
[2024-07-01] MEDS: DEXTROSE 5%/0.45% SOD CHL 1,000 ML 125 ML (17:59)
[2024-07-02 00:35] VITALS: BP 117/74; PULSE 60; RESP 16; TEMP 36.4; O2SAT 99
[2024-07-02 04:36] VITALS: BP 120/79; PULSE 51; RESP 16; TEMP 36.5; O2SAT 100
[2024-07-02] MEDS: KETOROLAC 15 MG/ML VIAL (*BKC) IV PUSH (05:41)
[2024-07-02] MEDS: ACETAMINOPHEN 325 MG TABLET 650 MG PO ×4 (05:41→23:45)
[2024-07-02 06:30] LABS: Basophils Absolute Auto 0.1 K/mm3 (0.0-0.1); Basophils Percent Auto 0.5 % (0.2-1.2); Eosinophils Absolute Auto 0.1 K/mm3 (0-0.3); Eosinophils Percent Auto 0.9 % (0-4.4); Hemoglobin 11.5 g/dL (12.0-15.0); Immature Granulocyte Absolute 0.07 K/mm3 (0.00-0.031); Immature Granulocyte Percent A 0.6 % (0-0.5); Lymphocytes Absolute Auto 3.45 K/mm3 (0.9-3.2); Mean Corpuscular HGB Conc 33.8 g/dl (32-36); Mean Corpuscular Hemoglobin 29.9 pg (26-34); Mean Corpuscular Volume 88.3 fl (80-100); Mean Platelet Volume 11.7 fl (7.4-10.4); Monocytes Absolute Auto 0.6 K/mm3 (0.1-0.6); Monocytes Percent Auto 4.8 % (2.6-8.5); Neutrophils Absolute Auto 7.3 K/mm3 (1.3-6.7); Neutrophils Percent Auto 63.2 % (45.5-73.1); Platelet Count Result 239 k/mm3 (150-375); Red Blood Count 3.85 M/mm3 (4.2-5.4); Red Cell Distribution Width 12.4 % (11.5-14.5); White Blood Count 11.5 K/mm3 (4.5-10.0)
[2024-07-02] MEDS: DOCUSATE SODIUM 100 MG CAPSULE PO ×2 (07:17→17:38)
[2024-07-02] MEDS: MULTIVIT/MIN/PREN/FOL AC/IRON TABLET 1 TAB PO (07:17)
[2024-07-02] MEDS: PANTOPRAZOLE 40 MG TABLET PO (07:19)
[2024-07-02 07:20] VITALS: BP 137/80; PULSE 58; RESP 16; TEMP 36; O2SAT 100
[2024-07-02] MEDS: FLUoxetine HCL 20 MG CAPSULE PO (07:20)
--- NOTE | 2024-07-02 07:55 | PC.NURSE ---
Introductions were made, then consulted with patient to assess needs related to . Discussed with mother her?plans to feed?her and the?experience so far. She says that has been latching well with no pain. Baby tends to get his hands in the way and it interrupts the latch. Mom fed with baby swaddled last feeding and said it went much better. Encouraged her to call for a latch check today. Resources provided for inpatient and outpatient services with the feeding sheet, mom/baby guide and name/number written on the communication board. Mother voiced understanding of information and will call if there is a request for assistance. Reported to the Primary RN.
[2024-07-02] MEDS: SIMETHICONE 80 MG TAB.CHEW PO ×3 (08:35→17:38)
[2024-07-02] MEDS: LIDOCAINE 5% PATCH 1 PATCH TRANSDERM (09:43)
--- NOTE | 2024-07-02 10:10 | PC.NURSE ---
Mother called out because she was going to start a feeding. Mom had baby latched in cross cradle but he was pretty sleepy. He just had his 24 hours testing and bath. Mom latched him to the right breast in football and he had an optimal latch but minimal effort to suckle. Mother has a small bruised area on both nipples. We reviewed deep vs shallow latch and lip rolling as well as normal need for to grow and develop stronger jaw muscles. Mom handles baby and her breast very comfortably. Encouraged mom to allow him time to recover from the stress of testing and bathing and then try to feed again. We did discuss positioning and alignment, tummy to tummy, and ear/shoulder/hip check. Mom receptive to education, feels better since we checked the latch and technique, and will call again for assistance as needed. Reported to primary RN.
--- NOTE | 2024-07-02 10:39 | WPDANLDPN2 ---
Anes-Prog Note L&D Date/Time: 07/02/24 10:39 Comfortable throughout: labor and delivery Neuraxial method: epidural Epidural/Spinal procedure site: clean & non-tender Neuro status: Neuro function grossly intact. Cardiovascular status: normal Respiratory status: normal Airway patency: baseline Mental status: baseline Post-Op hydration status: normal Vital Signs: Last Vital Signs Temp 36.0 C L 07/02/24 07:20 Pulse 58 L 07/02/24 07:20 Resp 16 07/02/24 07:20 BP 137/80 07/02/24 07:20 Pulse Ox 100 07/02/24 07:20 O2 Del Method Room Air 07/02/24 07:20 Pain score (VAS): 0/10 I/O: Intake & Output 07/01/24 07/02/24 07/02/24 23:59 07:59 15:59 Intake Total 1000 Output Total 600 Balance 400 Post-procedural complaints: none Patient feedback: Patient satisfied with anesthetic care.
[2024-07-02] MEDS: IBUPROFEN 600 MG TABLET PO ×3 (11:37→23:45)
--- NOTE | 2024-07-02 11:52 | WPDANLDNPN2 ---
Anes-Prog Note L&D-Neuraxial Date/Time: 07/02/24 11:52 Neuraxial medications: intrathecal PF morphine Opiod-related complaints: none Patient feedback: Patient satisfied with post-operative pain management.
[2024-07-02 11:59] VITALS: BP 105/62; PULSE 76; RESP 16; TEMP 36.8; O2SAT 98
--- NOTE | 2024-07-02 12:19 | PCCCNOTE ---
Recvd consult due to pt. using THC during . Met with pt. and FOB Dash at bedside. Pt. reports she, Dash, 3 year old son Dash Vitale and will be living together in [place], [place]. Pt. reports her FOB and mother are supportive. Pt. reports has all necessary supplies for and able to use some of her things from her first son. Pt. reports over income to qualify for WIC/[employer] [place]. 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 Pt. denies any prior involvement with DCFS. Pt. reports used THC during due to nausea, and states has since stopped due to now . Pt. reports her OB Dr. Davila was aware of her use during . RN Екатерина and Haleigh report no concerns about pt., and state has been appropriate with baby. RNs aware of visit. resource provided. Pt. anticipates likely discharge tomorrow 07/03. Pt. denies further needs.
--- NOTE | 2024-07-02 13:33 | P.PNOB_ITS ---
OB - PN: Subj Subjective Date/time seen: 07/02/24 13:33 Interval history: POD#1 s/p RLTCS and bilateral salpingectomy Doing well, pain controlled Voiding without issue Passing flatus Tolerating general diet Declines circumcision OB - PN: Obj Data Labs 07/02/24 04:41 07/01/24 05:52 Labs: Laboratory Results - last 24 hr 07/02/24 04:41 WBC 11.5 H RBC 3.85 L Hgb 11.5 L Hct 34.0 L MCV 88.3 MCH 29.9 MCHC 33.8 RDW 12.4 Plt Count 239 MPV 11.7 H Immature Gran % (Auto) 0.6 H Neut % (Auto) 63.2 Lymph % (Auto) 30.0 [place] % (Auto) 4.8 Eos % (Auto) 0.9 Baso % (Auto) 0.5 Lymph # (Auto) 3.45 H [place] # (Auto) 0.6 Eos # (Auto) 0.1 Baso # (Auto) 0.1 Abs Immat Gran (auto) 0.07 H Absolute Neuts (auto) 7.3 H Absolute Nucleated RBC 0.000 Nucleated RBC % 0.0 OB - PN A/P Assessment and Plan (1) S/P : Code(s): Z98.891 - History of uterine scar from previous surgery Status: Acute (2) Status post bilateral salpingectomy: Code(s): Z90.79 - Acquired absence of other genital organ(s) Status: Acute Plan day: 1 Plan: routine care Time Spent With Patient Time: Total time spent is greater than 50% in coordination of care (as documented) at patient's floor/unit and/or counseling patient: Review of Systems 2 Review of Systems: All systems reviewed & are unremarkable except as noted in HPI and below Exam 2 Const: General: comfortable and no acute distress O rientation/consciousness: patient oriented x3 Resp: Effort & Inspection: normal respiratory effort GI: GI Palp: Yes Soft to palpation and No Tenderness to palpation present (GI) Other: incision c/d/i
[2024-07-02] MEDS: HYDROcodone/acetaminophen (*CRX) 5-325 MG TABLET 1 TAB PO (14:45)
--- NOTE | 2024-07-02 16:30 | PC.NURSE ---
1510: Stopped in to see how feedings have been going. Mom states that baby still doesn't latch well to the left side. Recommended starting on the left when early feeding cues noted. If doesn't regularly stimulate the left breast mom could pump or hand express. She has a hand pump and she knows that we could provide an electric pump if needed. She does have her own double pump at home. Encouraged her to call for help with latch at next feeding. Reported to primary RN. 1630: Mom called to say she was going to initiate a feeding. She had baby latched to the left side. The latch looked very good and baby was sucking off and on. We reviewed what nutritive vs nonnutritive suckling looks like. Baby released the left breast and mom moved him to the right breast and he latched in football eagerly. He began swallowing right away and we listened to several swallows in a row. Mom is encouraged that baby was suckling more after she switched sides. Mom is very receptive to education and asks great questions. Assured mom that she is doing a great job and that maintaining as deep a latch as possible is the best way to prevent painful nipples. She notes some initial latch on tenderness. She was also shown how to compress the breast tissue to obtain a deeper latch while infant suckles. Reported to primary RN.
[2024-07-02 20:10] VITALS: BP 132/90; PULSE 64; RESP 16; TEMP 36.6; O2SAT 98
--- NOTE | 2024-07-03 04:34 | PM.OBPNVD ---
OB - PN: Subj Subjective Date/time seen: 07/03/24 04:34 Interval history: POD#2 s/p RLTCS and bilateral salpingectomy Doing well, pain controlled Voiding without issue Passing flatus Tolerating general diet Declines circumcision OB - PN: Obj Data Labs 07/02/24 04:41 07/01/24 05:52 Labs: Laboratory Results - last 24 hr 07/02/24 04:41 WBC 11.5 H RBC 3.85 L Hgb 11.5 L Hct 34.0 L MCV 88.3 MCH 29.9 MCHC 33.8 RDW 12.4 Plt Count 239 MPV 11.7 H Immature Gran % (Auto) 0.6 H Neut % (Auto) 63.2 Lymph % (Auto) 30.0 [place] % (Auto) 4.8 Eos % (Auto) 0.9 Baso % (Auto) 0.5 Lymph # (Auto) 3.45 H [place] # (Auto) 0.6 Eos # (Auto) 0.1 Baso # (Auto) 0.1 Abs Immat Gran (auto) 0.07 H Absolute Neuts (auto) 7.3 H Absolute Nucleated RBC 0.000 Nucleated RBC % 0.0 OB - PN A/P Plan day: 2 Plan: routine care and discharge home Time Spent With Patient Time: Total time spent is greater than 50% in coordination of care (as documented) at patient's floor/unit and/or counseling patient: Review of Systems Review of Systems: All systems reviewed & are unremarkable except as noted in HPI and below Exam Const: General: cooperative, healthy appearing and comfortable Chest: Chest palpation & inspection: normal inspection of the chest GI: Other: incision CDI Back/Spine/Pelvis: Back: no CVA tenderness Skin: General skin exam: normal color Neuro: General: patient oriented x3
--- NOTE | 2024-07-03 04:39 | PM.OBDSVD ---
DS: Admitting Diagnosis Discharge Date 07/03/24 Admitting Diagnosis section DS: Discharge Diagnosis Discharge Diagnosis (1) delivery delivered: Code(s): O82 - Encounter for delivery without indication Status: Acute OB - DS: Summary OB Procedures : None OB Procedures Intrapartum: OB Procedures: : None Peripartum Data Procedures: Procedures Operation Date: 07/01/24 07:30 Actual Procedure Side Surgeon p Repeat Section with Tubal Ligation Not Applicable Ilya Davila MD Time Spent with Patient Time attestation: Total time spent providing and/or coordinating discharge services: DS: Data Data Completed and Pending Completed studies during hospitalization: Pending at discharge 07/01/24 08:16 Surgical [PTH] Routine Labs on day of discharge: Labs from last 24 hours 07/02/24 04:41 WBC 11.5 H RBC 3.85 L Hgb 11.5 L Hct 34.0 L MCV 88.3 MCH 29.9 MCHC 33.8 RDW 12.4 Plt Count 239 MPV 11.7 H Immature Gran % (Auto) 0.6 H Neut % (Auto) 63.2 Lymph % (Auto) 30.0 [place] % (Auto) 4.8 Eos % (Auto) 0.9 Baso % (Auto) 0.5 Lymph # (Auto) 3.45 H [place] # (Auto) 0.6 Eos # (Auto) 0.1 Baso # (Auto) 0.1 Abs Immat Gran (auto) 0.07 H Absolute Neuts (auto) 7.3 H Absolute Nucleated RBC 0.000 Nucleated RBC % 0.0 Discharge Plan Discharge Attending physician on discharge: Ilya Davila Discharging Clinician: Eileen Otero Activity: pelvic rest Diet: regular Patient Language: Spanish Discharge Medications: New hydrocodone-acetaminophen 5-325 mg Tablet 1 tablet PO Q3H PRN (Reason: Breakthrough Pain Rated 4-6) Qty: 25 0RF Continued fluoxetine 20 mg capsule 20 mg PO DIRECTED omeprazole 40 mg capsule,delayed release(DR/EC) 40 mg PO DAILY Discontinued ondansetron HCl 8 mg tablet 8 mg PO Q8H PRN (Reason: nausea and vomiting) aspirin [Adult Aspirin Regimen] 81 mg tablet,delayed release (DR/EC) 81 mg PO DAILY No Action Vitamin 27 mg iron- 800 mcg tablet 1 tablet PO DAILY Date of admission: 07/01/24 05:27 Primary Care Provider: Juliana,Ozzie Mcginnis Admitting Provider: Ilya Davila Attending physician on admission: Ilya Davila Condition: Stable
[2024-07-03] MEDS: IBUPROFEN 600 MG TABLET PO ×2 (05:20→11:08)
[2024-07-03] MEDS: ACETAMINOPHEN 325 MG TABLET 650 MG PO ×2 (05:20→11:08)
[2024-07-03 07:30] VITALS: BP 122/84; PULSE 63; RESP 16; TEMP 36.5; O2SAT 100
[2024-07-03] MEDS: LIDOCAINE 5% PATCH 1 PATCH TRANSDERM (09:19)
[2024-07-03] MEDS: SIMETHICONE 80 MG TAB.CHEW PO ×2 (09:21→11:08)
[2024-07-03] MEDS: MULTIVIT/MIN/PREN/FOL AC/IRON TABLET 1 TAB PO (09:21)
[2024-07-03] MEDS: FLUoxetine HCL 20 MG CAPSULE PO (09:21)
[2024-07-03] MEDS: PANTOPRAZOLE 40 MG TABLET PO (09:21)
[2024-07-03] MEDS: DOCUSATE SODIUM 100 MG CAPSULE PO (09:21)
--- NOTE | 2024-07-03 11:30 | PC.NURSE ---
Consulted with mother concerning needs and she shared her ability to independently latch infant optimally without pain. Mother is feeding appropriately for growth of infant and understands stimulating to eat if needed. Infant has had appropriate feedings in the last 24 hours. The roller ordered supplementation after due to weight loss. Discussed pumping after to stimulate a good milk supply. Reinforced understanding of milk production, transition of milk, signs of adequate intake, transition of stool, prevention/relief of engorgement, plugged ducts, mastitis, responsive watching for feeding cues, the different methods of stimulating to breastfeed 1-3 hours after the start of the last feeding, community resources, and when to call a provider using the resource of the feeding sheet along with the mom and baby guide. She has a hand pump and and electric breast pump at home. Mother voiced understanding of the information shared, is confident to continue effectively her at home, when to call for assistance, denies any additional assistance or education at this time. Reported to the Primary RN.
== END 2024-07-03 12:03 | disposition home or self-care (01) | DRG 785 ==
LOC: ANHLDR 05:29 → ANHOB2 10:51
PROVIDERS: Admitting Provider Obstetrics & Gynecology; PCP Physician Assistant; Visit Provider Obstetrics & Gynecology
PROC: 10D00Z1 Extraction of Products of Conception, Low, Open Approach (ICD-10-PCS; CPT 59514; principal; 2024-07-01 07:30)
DX: O34.219 Maternal care for unspecified type scar from previous cesarean delivery (principal); Z30.2 Encounter for sterilization; O99.214 Obesity complicating childbirth; O69.2XX0 Labor and delivery complicated by other cord entanglement, with compression, not applicable or unspecified; Z3A.39 39 weeks gestation of pregnancy; Z37.0 Single live birth
CPT/HCPCS: 36415; 80053; 85025; 86593; 86703; 86850; 86900; 86901; 88302; A9270; G0432; J0690; J1885; J2274; J2371; J2405; J2590; J7120

== ENCOUNTER 2024-11-06 08:34 | Outpatient (CLI) | payer BC, SELFPAY ==
--- OUTSIDE RECORDS SUMMARY | 2024-11-06 08:38 | XMS_ITS | Clinical Summary ---
Author Organization [facility] [place] [facility] Address [address] [place] [address] Care Team Providers Care Painter Structural Steel Name Role Phone Ozzie Andrews Primary Care Provider [phone] Allergies No known active allergies Medications fexofenadine [...] understanding Assessment & Plan (07/04/2023 8:40 AM FEATURES REPORTER): Images from the original note were not [...] 05/25/2021 Assessment & Plan (05/25/2021 9:26 AM FEATURES REPORTER): Self-isolate 10 days from start of symptoms Increase fluid intake Report new or worsening symptoms Warning signs warranting immediate medical care: chest pain, trouble breathing, worsening shortness of breath Ear pressure, right 04/02/2020 Assessment & Plan (08/02/2021 8:32 AM CDT): resolved Assessment & Plan (04/02/2020 12:28 PM FEATURES REPORTER): Due to symptoms and sinus congestion which [...] mapping Assessment & Plan (07/04/2023 8:41 AM FEATURES REPORTER): Mole mapping performed skin care discussed Assessment & Plan (11/23/2021 7:48 AM CDT): Will call back to schedule shave BX right tricep due to irritation Assessment & Plan (06/21/2021 9:10 AM FEATURES REPORTER): With scheduling mole mapping Routine general medical exam ination at a health care facility 10/23/2018 Assessment & Plan (07/04/2023 8:40 AM FEATURES REPORTER): Healthcare maintenance updated Assessment & Plan (06/21/2021 9:10 AM FEATURES REPORTER): Healthcare maintenance updated Body mass index (bmi) 38.0-38.9, adult 9 Lump of right breast 12/26/2017 Generalized anxiety disorder 01/05/2017 Assessment & Plan (08/06/2023 9:57 AM CDT): This is well controlled with no SI HI continue current meds follow-up six-month Assessment & Plan (07/04/2023 8:39 AM FEATURES REPORTER): This is controlled current medications continue current meds follow-up routine there is no SI HI. Open door open Assessment & Plan (11/23/2021 7:52 AM CDT): Fair control, increasing prozac to 20, no SI/HI, f/u routine, MHC ordered Assessment & Plan (08/02/2021 8:32 AM CDT): Improved, CPM, refilled medications, f/u 6 months Assessment & Plan (06/21/2021 9:10 AM FEATURES REPORTER): Images from the original note were not [...] is well controlled chronic condition continue current [id number] medication Assessment & Plan (08/02/2021 8:33 AM CDT): CPM Assessment & Plan (06/21/2021 9:09 AM FEATURES REPORTER): This is well controlled with current medication [...] 07/09/2013 OPV 03/19/1996,01/16/1996 PPD TEST 10/20/2019, 9,10/22/2017,11/15 The Vetted Net Sars-Cov-2 Bivalent V accination (12+ YRS) 01/03/2024 [...] on file Legal Sex Female 7:09 PM FEATURES REPORTER Gender Identity Female 04/02/2020 11:49 AM FEATURES REPORTER Sexual Orientation Straight 04/02/2020 11 :49 AM FEATURES REPORTER Obstetrics History Last Filed Vital Signs Vital [...] 9:28 AM CDT Height 162.6 cm (5' 4) 08/06/2023 9:28 AM CDT Body Mass Index [...] complete this topic Varicella Vaccines Discontinued [place] Care Teams Painter Structural Steel Relationship Specialty Start Date End Date Ozzie Andrews PA PCP - General Family Medicine 10/28/18
--- OUTSIDE RECORDS SUMMARY | 2024-11-06 08:38 | XMS_ITS | Encounter Summary ---
Author Organization [facility] Care Team Providers Care Skip Hoist Engineer Name Role Phone Ozzie Andrews Primary Care Provider [phone] Encounter Details Date Type Department Care Team (Latest Contact Info) Description 09/02/2015 Orders Only [facility] CLINCONV Provider, MD Oziel [address] [place] [id number] Social History Tobacco Use Types Packs/Day Years Used Date Smoking Tobacco: Never Assessed Comments Unknown Sex and Gender Information Value Date Recorded Sex Assigned at Not on file Legal Sex Female 7:09 PM METALIZER Gender Identity Female 04/02/2020 11:49 AM METALIZER Sexual Orientation Straight 04/02/2020 11 :49 AM METALIZER documented as of this encounter Plan of [...] COVID: Suspected 05/25/2021 05/25/2021 05/25/2021 7:58 PM METALIZER documented as of this encounter Care Teams Skip Hoist Engineer Relationship Specialty Start Date End Date Ozzie Andrews PA PCP - General Family Medicine 10/28/18 documented as of this encounter
--- OUTSIDE RECORDS SUMMARY | 2024-11-06 08:38 | XMS_ITS | Encounter Summary ---
Author Organization [facility] Facility Care Team Providers Care Wire Stretcher Name Role Phone Ozzie Andrews Primary Care Provider [phone] Encounter Details Date Type Department Care Team (Latest Contact Info) Description 09/18/2017 Orders Only [facility] CLINCONV Provider, MD Oziel [address] [place] [id number] Social History Tobacco Use Types Packs/Day Years Used Date Smoking Tobacco: Never Assessed Comments Unknown Sex and Gender Information Value Date Recorded Sex Assigned at Not on file Legal Sex Female 7:09 PM HUMAN RESOURCES COORDINATOR Gender Identity Female 04/02/2020 11:49 AM HUMAN RESOURCES COORDINATOR Sexual Orientation Straight 04/02/2020 11 :49 AM HUMAN RESOURCES COORDINATOR documented as of this encounter Plan of [...] COVID: Suspected 05/25/2021 05/25/2021 05/25/2021 7:58 PM HUMAN RESOURCES COORDINATOR documented as of this encounter Care Teams Wire Stretcher Relationship Specialty Start Date End Date Ozzie Andrews PA PCP - General Family Medicine 10/28/18 documented as of this encounter
--- OUTSIDE RECORDS SUMMARY | 2024-11-06 08:38 | XMS_ITS | Referral Summary ---
Author Organization [facility] [place] at [facility] Address [address] [place] [address] Care Team Providers Care School Speech Therapist Name Role Phone Ozzie Andrews Primary Care [...] understanding Assessment & Plan (07/04/2023 8:40 AM SOCIAL SERVICE ASSISTANT): Images from the original note were not [...] 05/25/2021 Assessment & Plan (05/25/2021 9:26 AM SOCIAL SERVICE ASSISTANT): Self-isolate 10 days from start of symptoms Increase fluid intake Report new or worsening symptoms Warning signs warranting immediate medical care: chest pain, trouble breathing, worsening shortness of breath Ear pressure, right 04/02/2020 Assessment & Plan (08/02/2021 8:32 AM CDT): resolved Assessment & Plan (04/02/2020 12:28 PM SOCIAL SERVICE ASSISTANT): Due to symptoms and sinus congestion which [...] mapping Assessment & Plan (07/04/2023 8:41 AM SOCIAL SERVICE ASSISTANT): Mole mapping performed skin care discussed Assessment & Plan (11/23/2021 7:48 AM CDT): Will call back to schedule shave BX right tricep due to irritation Assessment & Plan (06/21/2021 9:10 AM SOCIAL SERVICE ASSISTANT): With scheduling mole mapping Routine general medical exam ination at a health care facility 10/23/2018 Assessment & Plan (07/04/2023 8:40 AM SOCIAL SERVICE ASSISTANT): Healthcare maintenance updated Assessment & Plan (06/21/2021 9:10 AM SOCIAL SERVICE ASSISTANT): Healthcare maintenance updated Body mass index (bmi) 38.0-38.9, adult 9 Lump of right breast 12/26/2017 Generalized anxiety disorder 01/05/2017 Assessment & Plan (08/06/2023 9:57 AM CDT): This is well controlled with no SI HI continue current meds follow-up six-month Assessment & Plan (07/04/2023 8:39 AM SOCIAL SERVICE ASSISTANT): This is controlled current medications continue current meds follow-up routine there is no SI HI. Open door open Assessment & Plan (11/23/2021 7:52 AM CDT): Fair control, increasing prozac to 20, no SI/HI, f/u routine, MHC ordered Assessment & Plan (08/02/2021 8:32 AM CDT): Improved, CPM, refilled medications, f/u 6 months Assessment & Plan (06/21/2021 9:10 AM SOCIAL SERVICE ASSISTANT): Images from the original note were not [...] is well controlled chronic condition continue current fchb-oht-tppwvjz medication Assessment & Plan (08/02/2021 8:33 AM CDT): CPM Assessment & Plan (06/21/2021 9:09 AM SOCIAL SERVICE ASSISTANT): This is well controlled with current medication [...] 07/09/2013 OPV 03/19/1996,01/16/1996 PPD TEST 10/20/2019, 9,10/22/2017,11/15 Zeus Sars-Cov-2 Bivalent V accination (12+ YRS) 01/03/2024 [...] on file Legal Sex Female 7:09 PM SOCIAL SERVICE ASSISTANT Gender Identity Female 04/02/2020 11:49 AM SOCIAL SERVICE ASSISTANT Sexual Orientation Straight 04/02/2020 11 :49 AM SOCIAL SERVICE ASSISTANT Last Filed Vital Signs Vital Sign Reading [...] Plan of Treatment Not on file Insurance [employer] Care Teams School Speech Therapist Relationship Specialty Start Date End Date Ozzie Andrews PA PCP - General Family Medicine 10/28/18
--- OUTSIDE RECORDS SUMMARY | 2024-11-06 08:38 | XMS_ITS | Data Portability ---
[facility] Organization [facility] Address [address] [place] [address] Assessment No assessment recorded. Plan of Treatment Reminders Order Date Submit Date Provider Last Modified By Organization Details Last Modified Time Details Appointments ANY 15 2024 09:00A DAVE Walker Not available Not available Not available Lab CBC w/ auto diff [address] (Lab), [address] [place] [address], [id number], 10/22/2024 10:21:23 CMP, serum or plasma [address] (Lab), [address] [place] [address], [id number], 10/22/2024 10:21:23 lipid panel, serum [address] (Lab), [address] [place] [address], [id number], 10/22/2024 10:21:23 vitamin D, 25-hydrox y, total, serum [address] (Lab), [address] [place] [address], [id number], 10/22/2024 10:21:23 Referral None recorded. Procedures None recorded. Surgeries None recorded. Imaging None recorded. Medication Orders albuterol sulfate HFA 90 mcg/actua tion aerosol inhaler 2024 025 [facility] #[id number], [address], [place], [place], [phone], 10/22/2024 10:10:19 albuterol sulfate HFA 90 mcg/actua tion aerosol inhaler 2023 [facility] #[id number], [address], [place], [place], [phone], 04/16/2024 08:51:06 fluoxetin e 20 mg capsule 2023 [facility] #[id number], [address], [place], [place], [phone], 04/16/2024 08:51:07 Patient TargetsNo targets recorded. Patient Instructions Encounter Date Encounter Id Patient Instructions Last Modified By Organization Details Last Modified Time 04/16/2024 [id number] A healthy lifestyle: care instructions [email or web address] Not available 04/16/2024 08:42:18 10/22/2024 [id number] A healthy lifestyle: care instructions [email or web address] Not available 10/22/2024 10:10:11 Reason for Referral None Reported. Problems Name Problem SNOMED Code Status Onset Date Resolution Date Notes Provider Name and Address Organization Details Recorded Time Adult health examination Active 2023 [place], [place] - [facility] 4 15:41:43 Gastroesophage al reflux disease without esophagitis 552821855 Active 2023 [facility], [place] - [facility] 4 15:41:44 Allergic rhinitis 94509006 Active 2023 [facility], [place] - [facility] 4 15:41:45 Notes:Some problems listed i n Document: #[id number] could not be added to this patient's chart. Please review this document and add these problems to the patient's chart manually as needed. Problem Notes None recorded. Medical Equipment None Reported. Allergies No known drug allergies Medications Name Sig Start Date Stop Date Status Note LastModified by Organization Details LastModified Time dicloxacill in 500 mg capsule TAKE 1 CAPSULE BY MOUTH EVERY 6 HOURS FOR 10 DAYS DIRECTED 10/22 completed Not Available Not Available Not Available Ecotrin Low Strength 81 mg tablet,ente jakob coated Take 1 tablet every day by oral route. 10/22 completed Not Available Not Available Not Available hydrocodone 5 mg-acetamin ophen 325 mg tablet TAKE 1 TABLET BY MOUTH EVERY 3 HOURS NEEDED FOR BREAKTHRO UGH PAIN RATED 4-6 10/22 completed Not Available Not Available Not Available ondansetron HCl 8 mg tablet Take 1 tablet twice a day by oral route as needed. active Not Available Not Available No t Available fexofenadin e 180 mg tablet Take 1 tablet every day by oral route as needed. 10/22 completed Not Available Not Available Not Available omeprazole 40 mg capsule,del ayed release TAKE 1 CAPSULE(4 0 MG) BY MOUTH DAILY active Not Available Not Available No t Available albuterol sulfate HFA 90 mcg/actuati on aerosol inhaler INHALE 2 PUFFS BY MOUTH EVERY 6 HOURS NEEDED active Not Available Not Available No t Available fluoxetine 20 mg capsule Take 1 capsule every day by oral route. active Not Available Not Available No t Available cyclobenzap rine 5 mg tablet Take 1 tablet every day by oral route as needed. 10/22 completed Not Available Not Available Not Available + DHA 1 tablet by mouth daily active Not Available Not Available No t Available Vitals Date Recorded Body height Body mass index (BMI) Body weight Oxygen saturation Oxygen saturation in Arterial blood by Pulse oximetry Heart rate Respiratory rate Systolic And Diastolic Provider Name and Address Organization Details Last Updated DateTime 5 160.02 cm 37.4 kg/m2 88512.0 9 g 96 % 96 % 93 /min 16 /min 96/72 mm[Hg] [facility] 5 09:51:45 Date Recorded Body height Body mass index (BMI) Body weight Oxygen saturation Oxygen saturation in Arterial blood by Pulse oximetry Heart rate Systolic And Diastolic Provider Name and Address Organization Details Last Updated DateTime 4 160.02 cm 37.4 kg/m2 38930.3 4 g 97 % 97 % 88 /min 110/70 mm[Hg] [facility] 4 08:39:57 Social History Question Answer Notes LastModified by Organizat ion Details LastModified Time Tobacco Smoking Status Never Smoker [facility] [place], [place] - [facility] 04/16/2024 08:37:15 What Is Your Level Of Caffeine Consumption? Moderate Information not available 04/16/2024 What Was The Date Of Your Most Recent Tobacco Screening? 10/22/2024 Information not available 10/22/2024 Has Tobacco Cessation Counseling Been Provided? No Information not available 04/16/2024 Sex: Female Functional Status Question Answer Note LastModified by Organizat ion Details LastModified Time Do you use any illicit or recreational drugs? No Information not available 04/16/2024 Do you or have you ever used any other forms of tobacco or nicotine? No Information not available 04/16/2024 What is your level of alcohol consumption? Occasional Information not available 04/16/2024 Mental Status None recorded. Family History Nothing Reported. Medical History No medical history recorded. Gynecological HistoryNo gynecological history recorded. Obstetrics History GPAL:G 0 P 0 0 0 0 Immunizations Vaccine Type Date Status Note Provider Nam e and Address Organization Details Recorded Time Influenza, MDCK, quadrivalent, PF 9 completed [place], [place] [facility] 04/16/2024 08:32:45 Influenza, MDCK, quadrivalent, PF 2 completed [place] [facility] 04/16/2024 08:32:45 Influenza, live, trivalent, intranasal 3 completed [place] [facility] 04/16/2024 08:32:45 COVID-19, mRNA, LNP-S, PF, 100 mcg/0.5mL dose or 50 mcg/0.25mL dose 1 completed [place] [facility] 04/16/2024 08:32:45 COVID-19, mRNA, LNP-S, PF, 100 mcg/0.5mL dose or 50 mcg/0.25mL dose 1 completed [facility] [place], [place] [facility] 04/16/2024 08:32:45 COVID-19, mRNA, LNP-S, PF, 100 mcg/0.5mL dose or 50 mcg/0.25mL dose 1 completed Jabier Deng [place], [place] [facility] 04/16/2024 08:32:45 COVID-19, mRNA, LNP-S, bivalent, PF, 50 mcg/0.5 mL or 25mcg/0.25 mL dose 2 completed Jabier Deng [place] [facility] 04/16/2024 08:32:45 COVID-19, mRNA, LNP-S, PF, jamar-sucrose, 30 mcg/0.3 mL 4 completed Jabier D[place] [facility] 04/16/2024 08:32:45 COVID-19, mRNA, LNP-S, PF, jamar-sucrose, 30 mcg/0.3 mL 3 completed Jabier D[place] [facility] 04/16/2024 08:32:45 Tdap 1 completed [place] [facility] 04/16/2024 08:32:45 OPV 6 completed [place] [facility] 04/16/2024 08:32:45 OPV 6 completed [place] [facility] 04/16/2024 08:32:45 DTP-Hib 6 completed [place] [facility] 04/16/2024 08:32:45 DTP-Hib 6 completed [facility] [place] [facility] 04/16/2024 08:32:45 Influenza, split virus, trivalent, PF 4 completed Jabier D[place] [facility] 04/16/2024 08:32:45 Hep B, adolescent or pediatric 6 completed Jabier D[place] [facility] 04/16/2024 08:32:45 Hep B, adolescent or pediatric 6 completed Jabier D[place] [facility] 04/16/2024 08:32:45 Hep B, adolescent or pediatric 6 completed [place] [facility] 04/16/2024 08:32:45 meningococcal MCV4P 4 completed [place] [facility] 04/16/2024 08:32:45 Influenza, split virus, quadrivalent, PF 8 completed [place] [facility] 04/16/2024 08:32:45 Influenza, split virus, quadrivalent, PF 1 completed [place] [facility] 04/16/2024 08:32:45 Influenza, split virus, quadrivalent, PF 3 completed [place] [facility] 04/16/2024 08:32:45 Influenza, split virus, quadrivalent, PF 0 completed [place], [place] [facility] 04/16/2024 08:32:45 RSV, bivalent, protein subunit RSVpreF, diluent reconstituted, 0.5 mL, PF 5 completed Not Available [facility] 10/22/2024 09:35:48 Tdap 5 completed Not Available [facility] 10/22/2024 09:35:48 Past Encounters Encounter ID Performer Location Encounter Start Date Encounter Closed Date Diagnosis/Indication Diagnosis SNOMED-CT Code Diagnosis ICD10 Code Diagnosis Note [id number] DAVE Joya [facility] [address] [address] 04/16/2024 08:27:55 04/22/2024 08:44:10 Adult health examination 383686632 Z00.00 Healthy diet and exercise, HCM as discussed Gastroesop hageal reflux disease without esophagitis 941581099 K21.9 1 .Avoid lying flat 3 to [...] and exercise. 10. Stop smoking. Allergic rhinitis 450516 04 J30.9 This is a stable chronic condition controlled with p.r.n. 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 Don't eat for 3 hours prior to going to sleep3. Elevate the head of bed 4-8 inches.4. Avoid tight clothing around the waist.5. Decrease dietary fat intake.6. Avoid acidic foods (citrus and tomato-bas ed products), alcohol, caffeinate d beverages, chocolate, onions, garlic, salt, and peppermint oil.7. Eat several smaller meals during the day instead of large meals.8. Avoid drinking coffee, or carbonated beverages. 9. Weight loss can help with symptoms, try to diet and exercise.1 0. Stop smoking. Allergic rhinitis 784001 04 J30.9 This is a stable chronic condition controlled with p.r.n. medication s Mixed anxi ety and depressive disorder 697591157 F41.8 This is a stable chronic condition, continue current treatment plan, follow up six-month - The pharmacolo gic and non-pharma cologic treatments discussed. No SI/HI. Take medication as prescribed - Take medication at the same time every day and do not miss doses- Medication will take 2-3 weeks to reach full effect- Do not suddenly stop medication without consulting your provider first- Take time for yourself every day, get plenty of rest- Exercise can help elevate moods- If you do not have a good support system, talk to your provider about counseling options- Sometimes antidepres son medication s can make suicidal thoughts worse. If you are experienci ng these thoughts you should report to the ER immediatel y- You can also call the suicide hotline at Reactive a irway disease [id number] 06 J45.909 controlled with prn meds Positive s creening for depression on PHQ-9 (Patient Health Questionnaire 9) 0522576636 76590 Z13.31 this is being treated HIV screen ing declined 3450066456 86062 Z53.20 Obese class II 521347194 1 49142 E66.812 Health Concerns Section Related Observation LastModified by Organization Detai ls LastModified Time None Recorded Concern Status LastModified by Organization Details LastModified Time None Recorded Advance Directives Directive None Recorded Payers Insurance Date Sequence Insurance Name Policy Number Policy Ingram Covered Member ID Ingram Member ID Guarantor Name 10/21/2024 1 [place] [id number] Ifeoma Marc [id number] Ifeoma Marc Notes Date Note Type [...] DAVE Joya Attn: Accounting,[address] [facility], [place], [address], [place] [facility] 04/16/2024 09:06:27 10/23/19 25 text/htm l Patient is in the office to f/u for the following medical pvypqyyuqq-mre-msvmgd:-exercis e:no-colonoscopy: No FMHX-Shingles:-Pneumococcal:-F marianne shot: UTD-Covid shots: UTD-HPV: UTD - mammogram:-Pap:2020-Bone density: Generalized anxiety disorder (Primary): stopped zoloft, went back on prozac, feels great , OB authorizedGastroesophageal reflux disease without esophagitisAllergic rhinitis due to pollen, unspecified seasonalityAtypical nevi: monitored DAVE Joya Attn: Accounting,[address] [facility], [place], [address], [place] [facility] 10/22/2024 10:22:12 OBGyn Episode No OBEpisode recorded.
--- OUTSIDE RECORDS SUMMARY | 2024-11-06 08:38 | XMS_ITS | Encounter Summary ---
Author Organization [facility] Care Team Providers Care Freight Manager Name Role Phone Ozzie Andrews Primary Care Provider [phone] Encounter Details Date Type Department Care Team (Latest Contact Info) Description 09/27/2015 Orders Only [facility] CLINCONV Provider, MD Oziel [address] [place] [id number] Social History Tobacco Use Types Packs/Day Years Used Date Smoking Tobacco: Never Assessed Comments Unknown Sex and Gender Information Value Date Recorded Sex Assigned at Not on file Legal Sex Female 7:09 PM DONOR RECRUITER Gender Identity Female 04/02/2020 11:49 AM DONOR RECRUITER Sexual Orientation Straight 04/02/2020 11 :49 AM DONOR RECRUITER documented as of this encounter Plan of [...] COVID: Suspected 05/25/2021 05/25/2021 05/25/2021 7:58 PM DONOR RECRUITER documented as of this encounter Care Teams Freight Manager Relationship Specialty Start Date End Date Ozzie Andrews PA PCP - General Family Medicine 10/28/18 documented as of this encounter
[2024-11-06 09:18] LABS: Hematocrit 40.6 % (37.0-47.0); Hemoglobin 13.3 g/dL (12.0-15.0); Immature Granulocyte Percent A 0.4 % (0-0.5); Lymphocytes Absolute Auto 1.81 K/mm3 (0.9-3.2); Mean Corpuscular HGB Conc 32.8 g/dl (32-36); Mean Corpuscular Hemoglobin 27.5 pg (26-34); Mean Corpuscular Volume 83.9 fl (80-100); Nucleated Red Blood Cells Absolute Auto 0.000 K/mm3 (0.0-0.012); Nucleated Red Blood Cells Perc 0.0 % (0.0-0.2); Platelet Count Result 334 k/mm3 (150-375); Red Blood Count 4.84 M/mm3 (4.2-5.4); White Blood Count 7.2 K/mm3 (4.5-10.0)
[2024-11-06 09:28] LABS: Alanine Aminotransferase 24 U/L (6-35); Albumin Level 4.6 g/dL (3.5-5.1); Alkaline Phosphatase 55 U/L (38-126); Anion Gap 10 mmol/L (4-12); Aspartate Amino Transferase 26 U/L (14-36); Bilirubin,Total 0.6 mg/dL (0.2-1.3); Blood Urea Nitrogen 14 mg/dL (7-17); Calcium 9.4 mg/dL (8.4-10.2); Carbon Dioxide 27 mmol/L (22-30); Chloride 103 mmol/L (98-107); Cholesterol 195 mg/dL (0-200); Estimated Glomerular Filt Rate > 60; Glucose 95 mg/dL (65-110); HDL Direct 59 mg/dL; Potassium 4.2 mmol/L (3.4-5.0); Sodium 140 mmol/L (137-145); Total Protein 8.1 g/dL (6.3-8.2); Triglycerides 146 mg/dL (<150)
== END 2024-11-06 08:35 | disposition home or self-care (01) ==
PROVIDERS: PCP Physician Assistant; Visit Provider Physician Assistant
DX: F41.8 Other specified anxiety disorders (principal)
CPT/HCPCS: 36415; 80053; 80061; 82306; 85025